=== PATIENT | male | born 1965 | race Caucasian/White ===

== ENCOUNTER 2024-08-18 10:36 | Outpatient (AMB) | payer OTHER, SELFPAY ==
--- NOTE | 2024-08-18 10:48 | A.OFFVIS_ITS ---
Intake Visit Reasons: Right knee pain Intake Note: Oleksandr is a 58 year old male who presents with complaints of progressively worsening right knee pain. The patient describes his pain as sharp and severe in nature, 08/25. His pain has gotten worse over the last few years in spite of continued non operative treatments. He has had multiple injections given into his right knee. The most recent injection gave him minimal relief. He has also taken Tylenol and anti-inflammatory medicines which gave him no relief. The patient has done physical therapy exercises which aggravated his pain. He has failed the last 3 months of conservative treatment. The patient has difficulty walking even short distances because of his pain. At this point his right knee pain is interfering with his activities of daily living and his ability to sleep well through the night. that presents today for Right knee pain/Swelling that has been going on since December. Pt states he has a history of gout in his knees. Pt denies any previous surgeries or injections in his right knee. Allergies caffeine Allergy (Intermediate, Verified 08/18/24 10:50) Headache morphine Allergy (Intermediate, Verified 08/18/24 10:50) Headache red dye Allergy (Intermediate, Verified 08/18/24 10:50) Rash karin Allergy (Intermediate, Verified 08/18/24 10:50) Rash Sulfa (Sulfonamide Antibiotics) Allergy (Intermediate, Verified 08/18/24 10:50) Rash Medication List - Last Reconciled 08/18/24 by Francisco Garza MD allopurinol 200 mg PO DAILY alprazolam mg PO amlodipine 5 mg PO BID carbamazepine ER 400 mg PO BID colchicine mg PO diclofenac sodium 75 mg PO BID fluticasone propion-salmeterol 250-50 mcg/dose (Wixela Inhub) 1 ea inhalation BID montelukast 10 mg PO QPM olmesartan 40 mg PO DAILY oxycodone-acetaminophen 10-325 mg tabs PO pravastatin 20 mg PO DAILY sennosides (senna) mg PO Physical Exam Const Other: Well-nourished well-developed very friendly male awake alert and oriented x3 in no acute distress Extrem Other: Bilateral lower extremity examination shows good capillary refill, no skin lesions noted, normal sensation light touch Right knee examination shows a mild effusion, palpable crepitus with range of motion, pain with range of motion, range of motion from -3 degrees to 115 degrees, no instability Results Reviewed Results Reviewed: X-rays of the patient's right knee show end-stage degenerative joint disease with grade 4 [id number] arthritis, subchondral sclerosis, osteophyte formati on, no acute bony abnormalities Assessment & Plan Assessment & Plan (1) Right knee pain: Code(s): M25.561 - Pain in right knee Category: Medical Plan Mr. Mckeon presents with progressively worsening right knee pain due to end- stage degenerative joint disease. I had a lengthy discussion with the patient regarding the treatment options. At this point he has failed continued non operative treatments. The risks and benefits of right total knee replacement surgery were discussed at length with the patient. The patient wishes to proceed with surgery. He will be scheduled for next available date. He will follow-up as instructed. I spent 22 minutes in reviewing the patient's records and imaging studies, seeing the patient and documenting in the medical record. Orders: Orders XR knee RT 3V Today M25.561 - Pain in right knee Referrals Rheumatology Referral M10.9 - Gout, unspecified, M25.561 - Pain in right knee Coding Level of Care Code New Pt Level 3 (11175) Complex EM visit Add On G2211 Diagnoses Right knee pain M25.561
== END 2024-08-18 11:13 | disposition home or self-care (01) ==
PROVIDERS: Visit Provider Orthopaedic Surgery
DX: M17.11 Unilateral primary osteoarthritis, right knee (principal)
CPT/HCPCS: 99203; G2211

== ENCOUNTER 2024-08-18 11:17 | Outpatient (REF) | payer OTHER, SELFPAY | END 2024-08-18 11:18 | disposition home or self-care (01) | LOC: HO.HOSX 11:17 | PROVIDERS: Visit Provider Orthopaedic Surgery | DX: M25.561 Pain in right knee (principal); M10.9 Gout, unspecified | CPT/HCPCS: 73562; 99202 ==

== ENCOUNTER 2024-08-19 13:40 | Outpatient (REF) | payer OTHER, SELFPAY ==
[2024-08-19 14:54] LABS: MANUAL DIFF FLAG NO
[2024-08-19 15:19] LABS: Basophils Absolute Auto 0.1 X10*3/uL (0.0-0.2); Basophils Percent Auto 1.2 % (0-2); Eosinophils Absolute Auto 0.4 X10*3/uL (0.0-0.4); Eosinophils Percent Auto 6.5 % (0-4); Hematocrit 37.2 % (42.0-52.0); Hemoglobin 12.7 g/dl (14.0-18.0); Imm Gran Abs Auto 0.01 X10*3/uL (0.00-0.03); Imm Gran Pct Auto 0.2 % (0.0-0.4); Lymphocytes Absolute Auto 1.9 X10*3/uL (1.2-4.9); Lymphocytes Percent Auto 28.7 % (20-40); Mean Corpuscular HGB Conc 34.1 g/dl (31.0-36.0); Mean Corpuscular Hemoglobin 31.8 pg (27.0-33.0); Mean Platelet Volume 11.4 fL (9.4-12.4); Monocytes Absolute Auto 0.5 X10*3/uL (0.1-1.2); Monocytes Percent Auto 6.8 % (2-11); Neutrophils Absolute Auto 3.8 x10*3/uL (2.0-8.3); Neutrophils Percent Auto 56.6 % (45-73); Platelet Count 175 X10*3/uL (160-400); Red Cell Distribution Width 13.5 % (11.0-16.0); White Blood Count 6.7 X10*3/uL (4.8-10.8)
[2024-08-19 16:01] LABS: Erythrocyte Sedimentation Rate 2 MM/HR (0-15)
[2024-08-19 18:01] LABS: Alanine Aminotransferase 25 U/L (0-40); Albumin Level 4.3 g/dL (3.5-5.0); Alkaline Phosphatase 81 U/L (39-117); Anion Gap 12 (12-20); Aspartate Amino Transferase 27 U/L (5-37); Bilirubin Total 0.3 mg/dL (0.0-1.0); Blood Urea Nitrogen 28 mg/dL (9-16); C Reactive Protein 0.25 mg/dL (< or = 0.50); Calcium 9.4 mg/dL (8.4-10.2); Carbon Dioxide 25 mmol/L (22-29); Chloride 106 mmol/L (96-108); Estimated Glomerular Filt Rate > 60; Glucose Random 93 mg/dL (60-115); Potassium 4.5 mmol/L (3.3-5.1); Sodium 138 mmol/L (135-145); Total Protein 6.4 g/dL (6.5-8.0)
== END 2024-08-19 13:41 | disposition home or self-care (01) ==
LOC: HO.LAB 13:40
PROVIDERS: PCP Psychiatry & Neurology Neurology; Visit Provider Student in an Organized Health Care Education/Training Program
DX: M1A.00X1 Idiopathic chronic gout, unspecified site, with tophus (tophi) (principal); Z79.899 Other long term (current) drug therapy
CPT/HCPCS: 36415; 80053; 84550; 85025; 85652; 86140; 99202

== ENCOUNTER 2024-08-19 13:40 | Outpatient (AMB) | payer OTHER, SELFPAY ==
[2024-08-19 13:44] VITALS: BP 122/74; PULSE 59; O2SAT 99; BMI 31.0
--- NOTE | 2024-08-19 13:44 | A.OFFVIS_ITS ---
Vital Signs 08/19/24 13:44 Height 5 ft 10 in Weight 216 lb BMI 31.0 BP 122/74 Blood Pressure Location Lt brachial Position Sitting Pulse 59 Pulse Source Pulse Oximeter Pulse Oximetry (%) 99 Oxygen Delivery Method Room Air Intake Visit Reasons: Gout Intake Note: Patient presents today for symptoms of gout, he is a new patient internally referred by Orthopedics. Allergies caffeine Allergy (Intermediate, Verified 08/19/24 13:46) Headache morphine Allergy (Intermediate, Verified 08/19/24 13:46) Headache red dye Allergy (Intermediate, Verified 08/19/24 13:46) Rash karin Allergy (Intermediate, Verified 08/19/24 13:46) Rash Sulfa (Sulfonamide Antibiotics) Allergy (Intermediate, Verified 08/19/24 13:46) Rash Medication List - Last Reconciled 08/19/24 by Isabel Matamoros MD allopurinol 200 mg PO DAILY alprazolam mg PO amlodipine 5 mg PO BID carbamazepine ER 400 mg PO BID colchicine mg PO diclofenac sodium 75 mg PO BID fluticasone propion-salmeterol 250-50 mcg/dose (Wixela Inhub) 1 ea inhalation BID montelukast 10 mg PO QPM olmesartan 40 mg PO DAILY oxycodone-acetaminophen 10-325 mg tabs PO pravastatin 20 mg PO DAILY sennosides (senna) mg PO HPI Comments Details: Patient is a 58-year-old gentleman former alcoholic and former cocaine user, with hypertension and history of chronic tophaceous gout here to establish care. Patient states that he recalls fluid being removed about 40 years ago at [facility] and being told there was gout crystals in the fluid (results not seen). Allopurinol 500mg Notes that since December he was started on diclofenac and colchicine by his primary because he was having multiple flares. Since starting this regimen he denies having any further flares. 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 Currently does not drink alcohol (has been sober for 20 years), trying to avoid fructose as well as red meat and shellfish. Provider notes reviewed: Francisco Garza MD. Orthopedics. 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 Denies joint swelling, muscle weakness, bone pain All other systems reviewed and are unremarkable except noted above Physical Exam Vital Signs: Last Vital Signs Pulse 59 08/19/24 13:44 BP 122/74 08/19/24 13:44 Pulse Ox 99 08/19/24 13:44 Oxygen Delivery Method Room Air 08/19/24 13:44 BMI result Body Mass Index 31.0 Const Other: Physical Examination Patient well appearing and in no apparent painful distress Able to rise from chair without support. ?Gait normal. Constitutional: ?Mucous membranes pink and moist patient alert and cooperative HEENT: ?Conjunctiva and sclera clear. ?Pupils equal round and reactive to light. ?No lymphadenopathy. ?Normal dentition. Resp: ?Normal respiratory effort and able to speak in complete sentences. ?Clear to auscultation bilaterally. ?No crackles, rales, rhonchi, wheezes heard. Cards: ?Regular rate and rhythm. ?S1 and S2 heard no murmurs. ?Radial pulses intact bilaterally MSK: ?No deformity, swelling, abnormalities noted to bilateral hands. ?No evidence of synovitis. ?Able to move all joints with full range of motion, without limitation. Bilateral crepitus on knees. Skin: No tophi noted to the ears. Tophi noted to the right 3rd and 4th PIP. No tophi noted to the elbows. Healed surgical scar seen on the left elbow. Results Reviewed Results Reviewed: Right knee x-ray reviewed 08/18/2024 ordered by Francisco Garza. Patient with Sam lgren and Stephen grade 4 osteoarthritis with bone on bone-almost obliterated joint space, large osteophytes and subchondral sclerosis (my read) Assessment & Plan Assessment & Plan (1) Chronic gouty arthropathy with tophi: Code(s): M1A.00X1 - Idiopathic chronic gout, unspecified site, with tophus (tophi) Plan: #Chronic Tophaceous Gout Patient with chronic tophaceous gout that was previously having an increase in flares but this has resolved since starting diclofenac and colchicine. We will need to check his uric acid as well as his kidney function today. Advised to stop the dog diclofenac and continue the colchicine. He is also to continue his allopurinol 500 mg. We will review his labs and adjust the allopurinol for a goal uric acid of less than 5. (2) On allopurinol therapy: Code(s): Z79.899 - Other intermediate (current) drug therapy Category: Medical Plan: #Long-term Current Use of Allopurinol Risks and benefits of allopurinol discussed with patient Benefits include decreased gout flares, remission of gout and reduction of tophi Risks include allopurinol hypersensitivity syndrome which is a severe cutaneous adverse reaction associated with allopurinol use particularly in patients who are HLA [id number] positive, increased transaminases, GI upset including diarrhea, nausea and vomiting, and other dermatologic manifestations. (3) On colchicine therapy: Code(s): Z79.899 - Other intermediate (current) drug therapy Category: Medical Plan: #Long-term use of colchicine Risks and benefits of long-term colchicine for the management of this patient's gout discussed with patient. Benefits include reduced occurrence of flares while we titrate and regulate his uric acid on allopurinol and other uric acid lowering medications. Risks include worsening myalgias especially if on statins and GI upset including diarrhea Plan I spent 45 minutes reviewing the record and labs, seeing the patient, discussing the treatment plan and documenting in the medical record Orders: Orders Comprehensive Met. Panel Today M10.9 - Gout, unspecified, M1A.00X1 - Idiopathic chronic gout, unspecified site, with tophus (tophi) C Reactive Protein Today M10.9 - Gout, unspecified, M1A.00X1 - Idiopathic chronic gout, unspecified site, with tophus (tophi) Uric Acid Today M10.9 - Gout, unspecified, M1A.00X1 - Idiopathic chronic gout, unspecified site, with tophus (tophi) Erythrocyte Sedimentation Rate Today M10.9 - Gout, unspecified, M1A.00X1 - Idiopathic chronic gout, unspecified site, with tophus (tophi) Complete Blood Count Auto Diff Today M10.9 - Gout, unspecified, M1A.00X1 - Idiopathic chronic gout, unspecified site, with tophus (tophi) Coding Level of Care Code New Pt Level 4 (21579) Diagnoses Chronic gouty arthropathy with tophi M1A.00X1 On allopurinol therapy Z79.899 On colchicine therapy Z79.899
== END 2024-08-19 14:30 | disposition home or self-care (01) ==
LOC: HO.RHE 13:40
PROVIDERS: PCP Psychiatry & Neurology Neurology; Visit Provider Student in an Organized Health Care Education/Training Program
DX: M1A.00X1 Idiopathic chronic gout, unspecified site, with tophus (tophi) (principal); Z79.899 Other long term (current) drug therapy
CPT/HCPCS: 99204

== ENCOUNTER 2024-08-30 13:30 | Outpatient (AMB) | payer OTHER, SELFPAY ==
[2024-08-30 13:34] VITALS: BP 124/80; PULSE 61; O2SAT 99; BMI 31.0
--- NOTE | 2024-08-30 13:34 | A.OFFVIS_ITS ---
Vital Signs 08/30/24 13:34 Height 5 ft 10 in Weight 216 lb BMI 31.0 BP 124/80 Blood Pressure Location Lt brachial Position Sitting Pulse 61 Pulse Source Pulse Oximeter Pulse Oximetry (%) 99 Oxygen Delivery Method Room Air Intake Visit Reasons: F/u lab results. Gout Intake Note: Patient is here for follow up on gout, and states colchicine is ripping his gut up. Allergies caffeine Allergy (Intermediate, Verified 08/30/24 13:37) Headache morphine Allergy (Intermediate, Verified 08/30/24 13:37) Headache red dye Allergy (Intermediate, Verified 08/30/24 13:37) Rash karin Allergy (Intermediate, Verified 08/30/24 13:37) Rash Sulfa (Sulfonamide Antibiotics) Allergy (Intermediate, Verified 08/30/24 13:37) Rash HPI Comments Details: Patient is a 58-year-old gentleman former alcoholic and former cocaine user, with hypertension and history of chronic tophaceous gout presents for follow-up Interval History: Last seen 08/19/2024 with mi. At that time patient was stable had no further since December of this year after starting allopurinol. At that visit diclofenac was discontinued and he was to remain on colchicine and allopurinol. Patient states that 4 days ago he had to stop the colchicine because he was having gastric irritation. Has not had any issues with gout since stopping the colchicine. Able to tolerate his allopurinol. Rheumatologic History: Patient with a longstanding history of crystal proven (results not seen) chronic tophaceous gout who presented to [facility] 08/19/2024. 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 Currently does not drink alcohol (has been sober for 20 years), trying to avoid fructose as well as red meat and shellfish. Current Rheumatology Medication(s): Allopurinol 500mg daily Colchicine 0.6mg daily (self discontinued due to GI upset) [facility] Medical History (Updated 08/30/24 @ 13:57 by Isabel Matamoros MD) Knee osteoarthritis On colchicine therapy On allopurinol therapy Review of Systems Const Details: Review of Systems Constitutional: Denies fever, chills, weight loss ENT: Denies vision changes, eye pain or eye redness, dental caries, dry mouth GI: Denies nausea, vomiting, diarrhea, abdominal pain, change in BM Pulm: Denies SOB, ARROYO, hemoptysis, wheezing Cards: Denies chest pain, palpitations Skin: Denies Raynaud's, rash, nail changes, photosensitivity, 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 ?Gait normal. Constitutional: ?Mucous membranes pink and moist patient alert and cooperative HEENT: ?Conjunctiva and sclera clear. ?Pupils equal round and reactive to light. ?No lymphadenopathy. ?Normal dentition. Resp: ?Normal respiratory effort and able to speak in complete sentences. ?Clear to auscultation bilaterally. ?No crackles, rales, rhonchi, wheezes heard. Cards: ?Regular rate and rhythm. ?S1 and S2 heard no murmurs. ?Radial pulses intact bilaterally MSK: ?No deformity, swelling, abnormalities noted to bilateral hands. ?No evidence of synovitis. ?Able to move all joints with full range of motion, without limitation. Bilateral crepitus on knees. Right knee with mild effusion. No warmth or tenderness to palpation. Skin: No tophi noted to the ears. No tophi noted to the elbows. Healed surgical scar seen on the left elbow. Prominent PIPs of the 3rd and 4th digits on the right. ?old injury versus tophi. Results Reviewed Results Reviewed: Laboratory Tests 08/19/24 14:53 WBC 6.7 RBC 4.00 L Hgb 12.7 L Hct 37.2 L Plt Count 175 ESR 2 Sodium 138 Potassium 4.5 Chloride 106 Carbon Dioxide 25 BUN 28 H Creatinine 1.18 Uric Acid 4.0 Calcium 9.4 Total Bilirubin 0.3 AST 27 ALT 25 C-Reactive Protein 0.25 Total Protein 6.4 L Assessment & Plan Assessment & Plan (1) Gout: Code(s): M10.9 - Gout, unspecified Category: Medical Qualifiers: Gout site: multiple sites Gout etiology: idiopathic Chronicity: chronic Presence of tophus: with tophus Qualified Code(s): M1A.09X1 - Idiopathic chronic gout, multiple sites, with tophus (tophi) Plan: # Chronic crystal proven tophaceous gout Given his history of tophi goal uric acid is 5. Last uric acid done 08/19/2024 has uric acid at goal of 4. Patient had to stop colchicine due to GI upset. Ideally I would like to see him remain on the colchicine for at least another 3 months while we ensure that his uric acid is indeed stable. However given his side effects will stop the colchicine daily and send a rescue pack of colchicine if he does have a breakthrough flare during this time. Continue allopurinol 500 mg. We will see again in 4 months. (2) Knee osteoarthritis: Code(s): M17.9 - Osteoarthritis of knee, unspecified Category: Medical Qualifiers: Osteoarthritis type: primary Laterality: bilateral Qualified Code(s): M17.0 - Bilateral primary osteoarthritis of knee Plan: #Bilateral Knee OA Patient with mild effusion to the right knee today. Given that it is without warmth or tenderness to palpation this is likely secondary to his underlying osteoarthritis which is pretty severe with a Kellgren Stephen grade 4 based on the x-rays done 08/18/24. Continue follow up with Orthopedics for surgical intervention. Topical ice and elevation in the meantime. (3) On allopurinol therapy: Code(s): Z79.899 - Other manager intermediate (current) drug therapy Category: Medical Plan: #Long-term Current Use of Allopurinol Risks and benefits of allopurinol discussed with patient Benefits include decreased gout flares, remission of gout and reduction of tophi Risks include allopurinol hypersensitivity syndrome which is a severe cutaneous adverse reaction associated with allopurinol use particularly in patients who are HLA [id number]*5801 positive, increased transaminases, GI upset including diarrhea, nausea and vomiting, and other dermatologic manifestations. Plan I spent 20 minutes reviewing the record and labs, seeing the patient, discussing the treatment plan and documenting in the medical record Orders: Orders Uric Acid 4 Months M1A.09X1 - Idiopathic chronic gout, multiple sites, with tophus (tophi), Z79.899 - Other manager intermediate (current) drug therapy Comprehensive Met. Panel 4 Months M1A.09X1 - Idiopathic chronic gout, multiple sites, with tophus (tophi), Z79.899 - Other manager intermediate (current) drug therapy Complete Blood Count Auto Diff 4 Months M1A.09X1 - Idiopathic chronic gout, multiple sites, with tophus (tophi), Z79.899 - Other detention (current) drug therapy Erythrocyte Sedimentation Rate 4 Months M1A.09X1 - Idiopathic chronic gout, multiple sites, with tophus (tophi), Z79.899 - Other detention (current) drug therapy C Reactive Protein 4 Months M1A.09X1 - Idiopathic chronic gout, multiple sites, with tophus (tophi), Z79.899 - Other manager intermediate (current) drug therapy Coding Level of Care Code Est Pt Level 3 (93971) Diagnoses Idiopathic chronic gout of multiple sites with tophus M1A.09X1 Gout site: multiple sites Gout etiology: idiopathic Chronicity: chronic Presence of tophus: with tophus Primary osteoarthritis of both knees M17.0 Osteoarthritis type: primary Laterality: bilateral On allopurinol therapy Z79.899
== END 2024-08-30 13:59 | disposition home or self-care (01) ==
PROVIDERS: PCP Psychiatry & Neurology Neurology; Visit Provider Student in an Organized Health Care Education/Training Program
DX: M1A.09X1 Idiopathic chronic gout, multiple sites, with tophus (tophi) (principal); M17.0 Bilateral primary osteoarthritis of knee; Z79.899 Other long term (current) drug therapy
CPT/HCPCS: 99213

== ENCOUNTER → 2024-08-30 13:30 | Outpatient (BNVA) | payer OTHER, SELFPAY | PROVIDERS: PCP Psychiatry & Neurology Neurology; Visit Provider Student in an Organized Health Care Education/Training Program | DX: M1A.09X1 Idiopathic chronic gout, multiple sites, with tophus (tophi) (principal); M17.0 Bilateral primary osteoarthritis of knee; Z79.899 Other long term (current) drug therapy | CPT/HCPCS: 99212 ==

== ENCOUNTER 2024-10-20 09:18 | Outpatient (REF) | payer OTHER, SELFPAY | END 2024-10-20 09:19 | disposition home or self-care (01) | LOC: HO.XRAY 09:18 | PROVIDERS: PCP Psychiatry & Neurology Neurology; Visit Provider Student in an Organized Health Care Education/Training Program | DX: Z01.818 Encounter for other preprocedural examination (principal); M1A.09X1 Idiopathic chronic gout, multiple sites, with tophus (tophi); M17.0 Bilateral primary osteoarthritis of knee; Z79.899 Other long term (current) drug therapy; M54.2 Cervicalgia | CPT/HCPCS: 72052; 99212 ==

== ENCOUNTER 2024-10-20 09:18 | Outpatient (AMB) | payer OTHER, SELFPAY ==
--- NOTE | 2024-10-20 09:20 | A.OFFVIS_ITS ---
Vital Signs 10/20/24 09:28 Height 5 ft 10 in Weight 217 lb 13.067 oz BMI 31.3 BP 115/60 Blood Pressure Location Lt brachial Position Sitting Respiration 18 Pulse 62 Pulse Source Pulse Oximeter Pulse Oximetry (%) 98 Oxygen Delivery Method Room Air Intake Visit Reasons: RA/Clearance Intake Note: Patient presents for RA. Allergies caffeine Allergy (Intermediate, Verified 10/20/24 09:24) Headache morphine Allergy (Intermediate, Verified 10/20/24 09:24) Headache red dye Allergy (Intermediate, Verified 10/20/24 09:24) Rash karin Allergy (Intermediate, Verified 10/20/24 09:24) Rash Sulfa (Sulfonamide Antibiotics) Allergy (Intermediate, Verified 10/20/24 09:24) Rash Medication List - Last Reconciled 10/20/24 by Isabel Matamoros MD allopurinol 200 mg PO DAILY alprazolam mg PO amlodipine 5 mg PO BID carbamazepine ER 400 mg PO BID colchicine mg PO diclofenac sodium 75 mg PO BID fluticasone propion-salmeterol 250-50 mcg/dose (Wixela Inhub) 1 ea inhalation BID montelukast 10 mg PO QPM olmesartan 40 mg PO DAILY oxycodone-acetaminophen 10-325 mg tabs PO pravastatin 20 mg PO DAILY sennosides (senna) mg PO HPI Comments Details: Patient is a 58-year-old gentleman former alcoholic and former cocaine user, with hypertension and history of chronic tophaceous gout presents for follow-up for preop clearance for his Right Total Knee Replacement Interval History: Last seen 08/30/2024 with me. At that time patient was stable. Had stopped colchicine without any flare of his gout. No changes to his medication made at that time Today, Patient is doing well No further gout flares since last visit Still having abdominal pain with exertion to his RLQ. Has been evaluated in the ED several times. CT Abd with no pathology. Surgery: Right total knee replacement Surgeon: Dr. David Kuo Date of Surgery: 11/11/2024 Rheumatologic History: Patient with a longstanding history of crystal proven (results not seen) chronic tophaceous gout who presented to [facility] care 08/19/2024. 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 Currently does not drink alcohol (has been sober for 20 years), trying to avoid fructose as well as red meat and shellfish. Current Rheumatology Medication(s): Allopurinol 500mg daily [facility] Medical History (Updated 10/20/24 @ 10:10 by Isabel Matamoros MD) Knee osteoarthritis On allopurinol therapy Family History (Updated 10/20/24 @ 09:25 by GAIL [place]) Father Parkinsons Social History (Updated 10/20/24 @ 09:27 by GAIL [place]) Household Members: None Housing: Apartment Alcohol intake: former Patient Tobacco Use Status: Former Tobacco user Cigarette Packs Per Day: 2 Years Smoked: 36 Substance Use Type: Marijuana Review of Systems Const Details: Review of Systems Constitutional: Denies fever, chills, weight loss ENT: Denies vision changes, eye pain or eye redness, dental caries, dry mouth GI: Denies nausea, vomiting, diarrhea, abdominal pain, change in BM Pulm: Denies SOB, ARROYO, hemoptysis, wheezing Cards: Denies chest pain, palpitations Skin: Denies Raynaud's, rash, nail changes, photosensitivity, SHREDDER PICKER: Denies headaches, weakness, paresthesias, recurrent falls MSK: as per HPI All other systems reviewed and are unremarkable except noted above Physical Exam Vital Signs: Last Vital Signs Pulse 62 10/20/24 09:28 Resp 18 10/20/24 09:28 BP 115/60 10/20/24 09:28 Pulse Ox 98 10/20/24 09:28 Oxygen Delivery Method Room Air 10/20/24 09:28 BMI result Body Mass Index 31.3 Physical Examination Patient well appearing and in no apparent painful distress Able to rise from chair without support. ?Gait normal. Constitutional: ?Mucous membranes pink and moist patient alert and cooperative HEENT: ?Conjunctiva and sclera clear. ?Pupils equal round and reactive to light. ?No lymphadenopathy. Resp: ?Normal respiratory effort and able to speak in complete sentences. ?Clear to auscultation bilaterally. ?No crackles, rales, rhonchi, wheezes heard. Cards: ?Regular rate and rhythm. ?S1 and S2 heard no murmurs. ?Radial pulses intact bilaterally MSK: ?No deformity, swelling, abnormalities noted to bilateral hands. ?No evidence of synovitis. ?Able to move all joints with full range of motion, without limitation. Bilateral crepitus on knees. No effusion. No warmth or tenderness to palpation. Skin: No tophi noted to the ears. No tophi noted to the elbows. Healed surgical scar seen on the left elbow. Prominent PIPs of the 3rd and 4th digits on the right. Results Reviewed Results Reviewed: Laboratory Tests 08/19/24 14:53 WBC 6.7 RBC 4.00 L Hgb 12.7 L Hct 37.2 L Plt Count 175 ESR 2 Sodium 138 Potassium 4.5 Chloride 106 Carbon Dioxide 25 BUN 28 H Creatinine 1.18 Estimated GFR > 60 Uric Acid 4.0 AST 27 ALT 25 C-Reactive Protein 0.25 Assessment & Plan Assessment & Plan (1) Gout: Code(s): M10.9 - Gout, unspecified Category: Medical Qualifiers: Chronicity: chronic Gout etiology: idiopathic Gout site: multiple sites Presence of tophus: with tophus Qualified Code(s): M1A.09X1 - Idiopathic chronic gout, multiple sites, with tophus (tophi) Plan: # Chronic crystal proven tophaceous gout Goal UA < 5 given his history of tophi Last uric acid done 08/19/2024 has uric acid at goal of 4. Continue allopurinol 500mg daily (2) Knee osteoarthritis: Code(s): M17.9 - Osteoarthritis of knee, unspecified Category: Medical Qualifiers: Osteoarthritis type: primary Laterality: bilateral Qualified Code(s): M17.0 - Bilateral primary osteoarthritis of knee Plan: #Bilateral Knee OA Awaiting TKR Plan is for right knee first then left knee Otherwise stable (3) Pre-op evaluation: Code(s): Z01.818 - Encounter for other preprocedural examination Plan: #Pre-op evaluation: Right TKR Patient scheduled for Right TKR 11/11/24 for Kellgren Stephen grade 4 OA with chronic pain not responsive to other conservative measures Patient has a history of chronic gouty arthritis affecting multiple joints. He has been without a flare of his gout for the past year and his UA is at goal <5. No contraindications to proceed with surgery Patient is to continue allopurinol in the preoperative period. There is increased risk of gout flare in the yo operative, especially in the post operative period. If there is a flare, a short course of prednisone can be given, but prolonged doses of prednisone can lead to delayed wound healing. (4) On allopurinol therapy: Code(s): Z79.899 - Other termite treater helper (current) drug therapy Category: Medical Plan: #Long-term Current Use of Allopurinol Risks and benefits of allopurinol discussed with patient Benefits include decreased gout flares, remission of gout and reduction of tophi Risks include allopurinol hypersensitivity syndrome which is a severe cutaneous adverse reaction associated with allopurinol use particularly in patients who are HLA B*5801 positive, increased transaminases, GI upset including diarrhea, nausea and vomiting, and other dermatologic manifestations. Plan I spent 30 minutes reviewing the record and labs, seeing the patient, discussing the treatment plan and documenting in the medical record Orders: Orders XR cervical spine w flex/ext Today M1A.09X1 - Idiopathic chronic gout, multiple sites, with tophus (tophi), M54.2 - Cervicalgia Medications: Changed From allopurinol 200 mg PO DAILY M1A.09X1 - Idiopathic chronic gout, multiple sites, with tophus (tophi), Z79.899 - Other termite treater helper (current) drug therapy To allopurinol 500 mg (5 x 100 mg) PO DAILY 90 days 450 tabs 2RF M1A.09X1 - Idiopathic chronic gout, multiple sites, with tophus (tophi), Z79.899 - Other residential (current) drug therapy Coding Level of Care Code Est Pt Level 4 (47953) Diagnoses Idiopathic chronic gout of multiple sites with tophus M1A.09X1 Chronicity: chronic Gout etiology: idiopathic Gout site: multiple sites Presence of tophus: with tophus Primary osteoarthritis of both knees M17.0 Osteoarthritis type: primary Laterality: bilateral Pre-op evaluation Z01.818 On allopurinol therapy Z79.899
[2024-10-20 09:28] VITALS: BP 115/60; PULSE 62; RESP 18; O2SAT 98; BMI 31.3
--- OUTSIDE RECORDS SUMMARY | 2024-10-26 00:50 | XMS_ITS ---
Author Name [facility] Organization Unknown Results Test Name/Text Value Interpretation Date Range Source CREAT SERPL MCNC 0.8mg/dL Normal 0.7 - 1.3 [facility] CALCIUM SERPL MCNC 8.8mg/dL Normal 8.4 - 10 .2 [facility] SODIUM SERPL SCNC 130mmol/L Below low normal 13 5 - 145 [facility] ANION GAP SERPL SCNC 8mmol/L Normal 5 - 14 [facility] Glomerular filtration rate/1.73 sq M. predicted 102 Normal 60 - [facility] HCO3 SER SCNC 26mmol/L Normal 24 - 32 [facility] GLUCOSE SERPL MCNC 94mg/dL Normal 70 - 199 [facility] BUN SERPL [facility] 17mg/dL Normal 9 - 20 [facility] CHLORIDE SERPL SCNC 96mmol/L Below low normal 98 - 107 [facility] POTASSIUM SERPL SCNC 4mmol/L Normal 3.5 - 5.1 [facility] PLATELET NO. BLD AUTO 192K/uL Normal 150 - 450 [facility] RBC NO. BLD AUTO 4.1M/uL Below low normal 4.7 - 6 [facility] NUCLEATED RBC 0% Normal 0 - 1 [facility] LYMPHOCYTES NO. BLD AUTO 2.3K/uL Normal [id number] 1 - 3.2 [facility] EOSINOPHIL NO. BLD AUTO 0.3K/uL Normal 0 - 0.5 [facility] MCH RBC QN AUTO 31.5pg Normal 25 - 33 [facility] MCHC RBC AUTO MCNC 34.3g/dL Normal 32 - 36 [facility] MONOCYTES NFR BLD AUTO 7% Normal 2 - 12 [facility] IMMATURE GRANULOCYTE, ABSOLUTE 0.02k/uL Normal - 0.1 [facility] LYMPHOCYTES NFR BLD AUTO 35.9% Normal 20 - 48 [facility] EOSINOPHIL NFR BLD AUTO 4.6% Normal 0 - 6 [facility] HGB BLD [facility]NC 12.9g/dL Below low normal 13.5 - 18 [facility] NEUTROPHILS NO. BLD AUTO 3.2K/uL Normal 1.8 - 7.8 [facility] WBC NO. BLD AUTO 6.3K/uL Normal 4 - 10.5 [facility] BASOPHILS NFR BLD AUTO 0.6% Normal 0 - 2 [facility] MONOCYTES NO. BLD AUTO 0.4K/uL Normal 0 - 0.8 [facility] MCV RBC AUTO 91.7fL Normal 78 - 100 [facility] NEUTROP[facility] NFR BLD AUTO 51.6% Normal 44 - 74 [facility] IMMATURE GRANULOCYTE, PERCENT 0.3% Normal 0 - 1 [facility] BASOPHILS IN BLOOD BY AUTOMATED COUNT 0K/uL Normal 0 - 0.2 [facility] PMV BLD AUTO 10.4fL Normal 7.4 - 11.4 [facility] RDW RBC AUTO RTO 13.1% Normal 12.1 - 17. 7 [facility] HCT VFR BLD AUTO 37.6% Below low normal 40 - 54 [facility] Clarity Ur Refract.auto CLEAR Normal [id number] [facility] Prot Ur Ql Strip.auto TRACE Abnormal - [facility] Glucose Ur Ql Strip.auto NEGATIVE Normal - [facility] Nitrite Ur Ql Strip.auto NEGATIVE Normal - [facility] Hgb Ur Ql Strip.auto NEGATIVE Normal - [facility] Ketones Ur Ql Strip.auto NEGATIVE Normal - [facility] Leukocyte esterase Ur Ql Strip.auto NEGATIVE Normal - [facility] Sp Gr Ur Strip.auto 1.015 Normal 1.005 - 1.03 [facility] pH Ur Strip.auto 7.5 Normal 4.5 - 8 [facility] SPECIMEN SOURCE XXX URINE CLEAN CATCH Normal [facility] BABESIA MICROTI IGM AB <1:20 Normal [facility] BABESIA MICROTI IGG AB <1:64 Normal [facility] ANAPLASMA PHAG IGM <1:20 Normal [facility] E. CHAFFEENSIS IGM <1:20 Normal [facility] ANAPLASMA PHAG IGG <1:64 Normal [facility] E. CHAFFEENSIS IGG <1:64 Normal [facility] B burgdor IgM Ser Ql IA NEGATIVE Normal - [facility] TSH SerPl DL<=0.005 mIU/L-aCnc 1.7uIU/mL Normal 0.45 - 5.33 [facility] Clarity Ur Refract.auto CLEAR Normal [facility] Prot Ur Ql Strip.auto TRACE Abnormal - [facility] Glucose Ur Ql Strip.auto NEGATIVE Normal - [facility] Nitrite Ur Ql Strip.auto NEGATIVE Normal - [facility] Hgb Ur Ql Strip.auto NEGATIVE Normal - [facility] Ketones Ur Ql Strip.auto NEGATIVE Normal - [facility] Leukocyte esterase Ur Ql Strip.auto NEGATIVE Normal - [facility] Sp Gr Ur Strip.auto 1.015 Normal 1.005 - 1.03 [facility] pH Ur Strip.auto 8 Normal 4.5 - 8 [facility] BILIRUB SERPL MCNC 0.4mg/dL Normal 0.3 - 1 [facility] BILIRUB DIRECT SERPL [facility] 0.1mg/dL Normal 0 - 0.2 [facility] LIPASE SERPL CCNC 26U/L Normal [id number] 11 - 82 [facility] CREAT SERPL [facility] 0.8mg/dL Normal 0.7 - 1.3 [facility] CALCIUM SERPL MCNC 9mg/dL Normal [id number] 8.4 - 10 .2 [facility] SODIUM SERPL SCNC 131mmol/L Below low normal [id number] 13 5 - 145 [facility] ANION GAP SERPL SCNC 6mmol/L Normal [id number] 5 - 14 [facility] Glomerular filtration rate/1.73 sq M. predicted 102 Normal [id number] 60 - [facility] HCO3 SER SCNC 28mmol/L Normal [id number] 24 - 32 [facility] GLUCOSE SERPL MCNC 98mg/dL Normal [id number] 70 - 199 [facility] BUN SERPL MCNC 17mg/dL Normal [id number] 9 - 20 [facility] CHLORIDE SERPL SCNC 97mmol/L Below low normal [id number] 98 - 107 [facility] POTASSIUM SERPL SCNC 4.5mmol/L Normal [id number] 3.5 - 5.1 [facility] AMYLASE SERPL [facility] 54U/L Normal [id number] 29 - 103 [facility] LDH SERPL L TO P CCNC 148U/L Normal [id number] 125 - 220 [facility] AST SERPL [facility] 26U/L Normal [id number] 5 - 40 [facility] ALP SERPL-CCNC 93U/L Normal [id number] 34 - 104 [facility] ALT SERPL [facility] 25U/L Normal [id number] 7 - 52 [facility] PLATELET NO. BLD AUTO 189K/uL Normal [id number] 150 - 450 [facility] RBC NO. BLD AUTO 4.08M/uL Below low normal [id number] 4.7 - 6 [facility] NUCLEATED RBC 0% Normal [id number] 0 - 1 [facility] LYMPHOCYTES NO. BLD AUTO 1.3K/uL Normal [id number] 1 - 3.2 [facility] EOSINOPHIL NO. BLD AUTO 0.3K/uL Normal [id number] 0 - 0.5 [facility] MCH RBC QN AUTO 31.9pg Normal [id number] 25 - 33 [facility] MCHC RBC AUTO MCNC 34.9g/dL Normal [id number] 32 - 36 [facility] MONOCYTES NFR BLD AUTO 7.3% Normal [id number] 2 - 12 [facility] IMMATURE GRANULOCYTE, ABSOLUTE 0.02k/uL Normal [id number] - 0.1 [facility] LYMPHOCYTES NFR BLD AUTO 21.8% Normal [id number] 20 - 48 [facility] EOSINOPHIL NFR BLD AUTO 5.6% Normal [id number] 0 - 6 [facility] HGB BLD MCNC 13g/dL Below low normal [id number] 13.5 - 18 [facility] NEUTROPHILS NO. BLD AUTO 3.8K/uL Normal [id number] 1.8 - 7.8 [facility] WBC NO. BLD AUTO 5.9K/uL Normal [id number] 4 - 10.5 [facility] BASOPHILS NFR BLD AUTO 0.7% Normal [id number] 0 - 2 [facility] MONOCYTES NO. BLD AUTO 0.4K/uL Normal [id number] 0 - 0.8 [facility] MCV RBC AUTO 91.2fL Normal [id number] 78 - 100 [facility] NEUTROPHILS NFR BLD AUTO 64.3% Normal [id number] 44 - 74 [facility] IMMATURE GRANULOCYTE, PERCENT 0.3% Normal [id number] 0 - 1 [facility] BASOPHILS IN BLOOD BY AUTOMATED COUNT 0K/uL Normal [id number] 0 - 0.2 [facility] PMV BLD AUTO 11.5fL Above high normal [id number] 7.4 - 11.4 [facility] RDW RBC AUTO RTO 13.2% Normal [id number] 12.1 - 17. 7 [facility] HCT VFR BLD AUTO 37.2% Below low normal [id number] 40 - 54 [facility] SPECIMEN SOURCE XXX URINE CLEAN CATCH Normal [id number] [facility]
== END 2024-10-20 09:49 | disposition home or self-care (01) ==
LOC: HO.RHE 09:18
PROVIDERS: PCP Psychiatry & Neurology Neurology; Visit Provider Student in an Organized Health Care Education/Training Program
DX: M1A.09X1 Idiopathic chronic gout, multiple sites, with tophus (tophi) (principal); M17.0 Bilateral primary osteoarthritis of knee; Z01.818 Encounter for other preprocedural examination; Z79.899 Other long term (current) drug therapy
CPT/HCPCS: 99214

== ENCOUNTER 2024-12-13 11:14 | Outpatient (REF) | payer OTHER, SELFPAY ==
[2024-12-13 12:07] LABS: MANUAL DIFF FLAG NO
[2024-12-13 12:32] LABS: Basophils Absolute Auto 0.1 X10*3/uL (0.0-0.2); Basophils Percent Auto 0.7 % (0-2); Eosinophils Absolute Auto 0.6 X10*3/uL (0.0-0.4); Hematocrit 35.8 % (42.0-52.0); Hemoglobin 11.6 g/dl (14.0-18.0); Imm Gran Abs Auto 0.04 X10*3/uL (0.00-0.03); Imm Gran Pct Auto 0.6 % (0.0-0.4); Lymphocytes Absolute Auto 1.3 X10*3/uL (1.2-4.9); Lymphocytes Percent Auto 19.3 % (20-40); Mean Corpuscular HGB Conc 32.4 g/dl (31.0-36.0); Mean Corpuscular Hemoglobin 30.8 pg (27.0-33.0); Mean Platelet Volume 11.6 fL (9.4-12.4); Monocytes Absolute Auto 0.6 X10*3/uL (0.1-1.2); Monocytes Percent Auto 7.9 % (2-11); Neutrophils Absolute Auto 4.4 x10*3/uL (2.0-8.3); Neutrophils Percent Auto 63.5 % (45-73); Platelet Count 173 X10*3/uL (160-400); Red Blood Count 3.77 X10*6/uL (4.60-5.80); Red Cell Distribution Width 14.1 % (11.0-16.0)
--- OUTSIDE RECORDS SUMMARY | 2024-12-13 12:58 | XMS_ITS | Data Portability ---
Author Organization [facility], [facility] Address [address] [place] [address] Care Team Providers Care Acid Treater Name Role Phone CHE NICHO Primary Care Provider Assessment Encounter [...] present. P:Continue with POC, progress as tolerated. Not available 11/23/2024 17:46:31 11/28/2024 11/28/2024 A: Pt able to improve with more LE arom exercise to help improve balance and stability. Pt had minimal increase with passive bending. Pt is very stiff in both planes. P: Continue with POC, progress as tolerated. [email or web address] Not available 11/28/2024 14:25:34 12/01/2024 12/01/2024 A: Pt cont work on regaining rom and strength with arom exercises. Pt still have mod pain with passive stretching. Pt encourage to take a few days off to allow muscle soreness to subside. P: Continue with POC, progress as tolerated. Not available 12/01/2024 13:29:44 12/08/2024 12/08/2024 A: Pt presents with increased active and passive knee flexion and extension. Pt was able to ride the stationary bicycle without difficulty. Pt is walking w/o an AD and presents with a limp. Pt advised to use a cane until he can walk w/o limping. P: Continue with POC, progress as tolerated. [email or web address] Not available 12/08/2024 16:46:09 Plan of Treatment Reminders Order Date Submit Date Provider Last Modified By Organization Details Last Modified Time Details Appointments PT FOLLOW-UP 2024 01:00P M Zaina Stephens, AIRCRAFT MAINTENANCE DIRECTOR Not available Not available Not available RECHECK 15 2024 02:30P M David Reina MD Not available Not available Not available PT FOLLOW-UP 2024 01:30P M Zaina Stephens, AIRCRAFT MAINTENANCE DIRECTOR Not available Not available Not available PT FOLLOW-UP 2024 12:00P M Josy Arce DPT Not available Not available Not available PT FOLLOW-UP 2024 12:00P M Josy Arce DPT Not available Not available Not available Lab None recorded. Referral None recorded. Procedures None recorded. Surgeries None recorded. Imaging XR, knee, 3 view - room 201 1 p/o rtkr ([place]) 2024 025 [email or web address] [facility], [address] [facility] [address], [place], [address], 12/08/2024 08:33:27 Medication Orders oxycodone [address] [id number], [address], [place], [place], [id number], 11/25/2024 10:16:05 Patient TargetsNo targets recorded. Patient InstructionsNo instructions recorded. Reason for Referral None Reported. Results Created Date Observation Date Name Description Value Unit Range Abnormal Flag Note LastModifiedBy Organization Detail LastModifiedTime 11/25/19 25 11/25/2024 XR, knee, 3 view http:/ [email or web address] ?Encry pted=s hAaTro YD8dLq bEUv6g %2BXZw aYqtaq 0bqfl% 2Fg9IQ a4ajBk vP9nXo QUaueC m3YtLR FvZlgJ JJ8mAn HZtai3 8r0566 AC0Kqb 3%2BAU 6GhKiQ trMwF INTERFACE [facility] [address], [place], [address], 11/25/2024 09:57:02 11/25/19 25 11/25/2024 XR, knee, 3 view [email or web address]:/ [email or web address] ?Encry pted=s hAaTro YD8dLq bEUv6g %2BXZw aYqtaq 0bqfl% 2Fg9IQ a4ajBk vP9nXo QUaueC m3YtLR FvZlgJ JJ8mAn HZtai3 4g5238 AC0Kqb 3%2BAU 6GhKiQ trMwF INTERFACE [facility] [address], [place], [address], 11/25/2024 09:57:05 Result Notes None recorded. 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 Procedures Surgical History Date Name Laterality Status Provider Name and Address Organization Details Recorded Time 5 77696 Therapeutic Exercise (1:1) completed Zara Casas, AIRCRAFT MAINTENANCE DIRECTOR [address], [place], [address], [facility] 12/08/2024 16:43:56 5 11264: Hot or Cold Pack completed Zara Casas, AIRCRAFT MAINTENANCE DIRECTOR [address], [place], [address], [facility] 12/08/2024 16:43:52 5 81033: Manual therapy completed Zara Casas, AIRCRAFT MAINTENANCE DIRECTOR [address], [place], [address], [facility] 12/08/2024 16:44:00 5 36328 Therapeutic Exercise (1:1) completed Branden Sorto PTA [address], [place], [address], [facility] 11/30/2024 12:03:45 5 54348: Hot or Cold Pack completed Branden Sorto PTA [address], [place], [address], [facility] 12/01/2024 13:24:41 5 10263: Manual therapy completed Branden Sorto PTA [address], [place], [address], [facility] 11/30/2024 12:03:45 5 54469 Therapeutic Exercise (1:1) completed Branden Sorto AIRCRAFT MAINTENANCE DIRECTOR [address], [place], [address], [facility] 11/28/2024 14:24:53 5 44462: Hot or Cold Pack completed Branden Sorto AIRCRAFT MAINTENANCE DIRECTOR [address], [place], [address], [facility] 11/25/2024 16:21:02 5 28893: Manual therapy completed Branden Sorto PTA [address], [place], [address], [facility] 11/25/2024 16:21:02 5 92650 Therapeutic Exercise (1:1) completed Josy Arce DPT [address], [place], [address], [facility] 11/23/2024 17:45:18 5 70210: Hot or Cold Pack completed Josy Arce DPT [address], [place], [address], [facility] 11/23/2024 17:45:24 5 77004: Manual therapy completed Josy Arce DPT [address], [place], [address], [facility] 11/23/2024 17:45:09 5 32747 Therapeutic Exercise (1:1) completed Josy Arce DPT [address], [place], [address], [facility] 11/21/2024 15:50:33 5 58393: Low complexity PT Eval completed Josy Arce DPT [address], [place], [address], [facility] 11/21/2024 15:51:36 4 90615 Therapeutic Exercise (1:1) completed Josy Arce DPT [address], [place], [address], [facility] 10/18/2024 10:50:09 4 35874: Low complexity PT Eval completed Josy Arce DPT [address], [place], [address], [facility] 10/18/2024 10:51:57 Imaging Results Imaging Date Name Status LastModified by Organiz ation Details LastModified Time 11/25/2024 XR, knee, 3 view completed INTERFACE [facility] [address], [place], [address], 11/25/2024 09:57:02 11/25/2024 XR, knee, 3 view completed INTERFACE [facility] [address], [place], [address], 11/25/2024 09:57:05 Procedure Notes None recorded. Medical Equipment None Reported. Allergies Allergen ID Allergen Name Allergen Category Reaction Reaction Severity Criticality Documentation Date Start Date Code Code System Note Provider Name and Address Organization Details Recorded Time 316198 Substance with sulfonami de structure and antibacte rial mechanism of action (substanc e) medicatio n Not available Not available Not available 08/25/2024 82941 8003 SNOMED Dylan Eason [facility], [facility] 4 07:50:32 260620 caffeine food,medi cation headache hives itching nausea rash respirato ry distress moderate moderate severe moderate severe moderate Not available 08/25/2024 1886 RxNorm Dylan Seguraam [facility], [facility] 4 07:50:32 144381 karin extract food Not available Not available Not available 08/25/2024 16093 97 RxNorm Dylan Seguraam [facility] 4 07:50:32 829090 pink dye Not available Not available Not available Not available 08/25/2024 UNK Dylan Eason [facility], [facility] 4 07:50:32 755206 red dye food,medi cation Not available Not available Not available 08/25/2024 UNK Dylan Eason [facility], [facility] 4 07:50:32 78271 morphine sulfate medicatio n Not available Not available Not available 01/18/20242013 06896 RxNorm Not Available [facility] 4 11:09:56 Medications Name Sig Start Date [...] Not Available Not Available Not Available Vitals Date Recorded Body height Body mass index (BMI) Body weight Provider Name and Address Organization Details Last Updated DateTime 11/25/2024 177.8 cm 35 kg/m2 193409.54 g warren boyer [place] [facility] [place] [facility] 11/25/2024 09:47:33 Social History None recorded. Functional Status None recorded. Mental Status None recorded. Family History Nothing Reported. Medical History No medical history recorded. Past Encounters Encounter ID Performer Location Encounter Start Date Encounter Closed Date Diagnosis/Indication Diagnosis SNOMED-CT Code Diagnosis ICD10 Code Diagnosis Note [id number] Hank Padilla PA-C [facility] [address] [place] [address] 08/25/2024 07:40:09 09/20/2024 10:58:56 Osteoarthritis of knee 694501640 M17.9 [id number] David Reina MD [facility] [address] [place] [place] [address] 09/06/2024 07:37:05 09/28/2024 08:14:06 Pain of right knee joint 0121981517 06985 M25.561 Primary go narthrosis, bilateral 272868773 M17.0 [id number] [facility]ha [facility] [address] [place] [address] 10/18/2024 10:17:18 10/18/2024 12:17:43 Osteoarthritis of right knee joint 6567919463 92718 M17.11 [id number] Clare GarciaMARGRET [facility] [address] [facility] [address] [place] [address] 11/03/2024 10:39:57 11/29/2024 04:02:56 Osteoarthritis of right knee joint 2631219875 32476 M17.11 [id number] KELLY Sinha [facility] [address] [place] [address] 11/21/2024 14:44:18 11/21/2024 15:57:48 Surgical follow-up 671350850 Z47.1 Z96.499 [id number] KELLY Sinha PT [address] [place] [address] 11/23/2024 14:48:44 11/23/2024 17:47:14 Surgical follow-up [id number] Z47.1 Z96.225 [id number] VANE Galvan 2[address] floor [address] [place] [address] 11/25/2024 09:23:17 12/08/2024 08:33:27 Postoperative visit 792904760 Z48.89 Knee joint prosthesis present 3815255063 02 Z96.130 [id number] Josy Arce DPT [facility] [address] [place] [address] 11/28/2024 13:23:05 11/28/2024 14:25:54 Surgical follow-up 882607743 Z47.1 Z96.228 [id number] Josy Arec DPT [facility] [address] [place] [address] 12/01/2024 12:29:30 12/01/2024 13:30:34 Surgical follow-up 546552022 Z47.1 Z96.053 [id number] Josy Arce DPT [facility] [address] [place] [address] 12/08/2024 14:26:55 12/08/2024 16:46:38 Surgical follow-up [id number] Z47.1 Z96.651 Health Concerns Section Related Observation LastModified by Organization Detai ls LastModified Time None Recorded Concern Status LastModified by Organization Details LastModified Time None Recorded Advance Directives Directive None Recorded Payers Encounter Date Sequence Insurance Name Policy Number Policy Felix Covered Member ID Felix Member ID Guarantor Name 11/23/2024 1 [facility] [employer] - DOS ON OR AFTER 2023 - ONE CARE (MEDICARE REPLACEMENT/AD VANTAGE - HMO) Oleksandr Mckeon [id number] Oleksandr Mckeon 11/25/2024 1 [facility] - DOS ON OR AFTER 2023 - ONE CARE (MEDICARE REPLACEMENT/AD VANTAGE - HMO) Oleksandr Mckeon [id number] Oleksandr Mckeon 11/28/2024 1 [employer] - DOS ON OR AFTER 2023 - ONE CARE (MEDICARE REPLACEMENT/AD VANTAGE - HMO) Oleksandr Mckeon [id number] Oleksandr Mckeon 12/01/2024 1 [facility] - DOS ON OR AFTER 2023 - ONE CARE (MEDICARE REPLACEMENT/AD VANTAGE - HMO) Oleksandr Mckeon [id number] Oleksandr Mckeon 12/08/2024 1 [facility] - DOS ON OR AFTER 2023 - ONE CARE (MEDICARE REPLACEMENT/AD VANTAGE - HMO) Oleksandr Mckeon [id number] Oleksandr Mckeon Notes Date Note Type Note Provider Name and Address Organization Details Recorded Time 11/23/2024 text/html Pt reporting valerie n about 04/25 coming into therapy, reporting good compliance with stretching at home. Josy Arce, DPT [address] [facility] [address] [facility], [place], [address], [facility] [place] [facility] 11/23/2024 17:47:08 11/25/2024 text/html I am seeing the patient today under the supervision of Dr. Rosales who was available but who did not see the patient. HPI: Patient comes in for follow-up, now 2 weeks status post right total knee arthroplasty. Happy with results. No significant complaints of pain. Range of motion with physical therapy is -10-85 degrees. No neurovascular changes. Past family, medical, social history and review of systems has been reviewed, updated and is located in the patient? s chart. Examination: The patient is well appearing and in no apparent distress. Alert and oriented x3. Gait is antalgic on the right with use of ambulatory aid. Examination right knee reveals a healing surgical incision. Appropriate postoperative effusion, no erythema or drainage. Neurovascularly intact. Range of motion from -10-85 degrees. No ligamentous instability to varus or valgus stress test at 0 or 30? ? ?. Calf is soft and nontender bilaterally. Appropriate strength with knee flexion/extension and ankle dorsiflexion/plantarf lexion. Able to actively straight leg raise. X-rays ordered, obtained and reviewed at [facility] today include 3 views of the right knee. Images demonstrate total knee arthroplasty components to be in good position and alignment. No evidence of any lysis or loosening. No acute fractures appreciated. Impression: Two weeks status post right total knee arthroplasty Plan: Nature of the diagnosis has been discussed today. At this point the patient is doing well. Continue physical therapy with a focus on regaining range of motion and strengthening. Patient is on {{ASA* Xarelto Eliqui s Plavix Coumadin Obdulia enox}} for DVT prophylaxis. Pain is controlled on oral medication. We reviewed the signs/symptoms of infection. Patient will follow up as scheduled, sooner if there are any issues. All questions have been answered. [employer] speech recognition layout technician software was used to create portions of this document. An attempt at proofreading has been made to minimize errors. Please call for corrections. Jackie Falk PA-C [address], [place], [address], [facility] 11/25/2024 10:16:09 11/28/2024 text/html Pt reporting 6 0. This weekend the weather flared up my gout and it killed me. Branden Sorto, AIRCRAFT MAINTENANCE DIRECTOR [address], [place], [address], [facility] 11/28/2024 14:25:49 12/01/2024 text/html I was doing my exercises but I think I did too much last night and had to stop. Josy Arce, DPT [address], [place], [address], [facility] 12/01/2024 16:53:23 12/08/2024 text/html Pt rates pain as a 5/10 coming in today. Pt is not sleeping well. 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 Pt reports going to the gym and stretching on a bike. I have been working hard on stretching. Zara Casas, AIRCRAFT MAINTENANCE DIRECTOR [address], [place], [address], [facility] 12/08/2024 16:46:32
--- OUTSIDE RECORDS SUMMARY | 2024-12-13 12:58 | XMS_ITS | Continuity of Care Document ---
Author Organization [facility], ARIADNE Crandall PT Address [address] [place] [address] Care Team Providers Care Poising Inspector Name Role Phone NICHO BOLTON Primary Care Provider Assessment Encounter Date Assessment Date Assessment LastModified by Organization Details LastModified Time 11/21/2024 11/21/2024 A: Pt presenting s/p R TKA c decreased strength, ROM and function. Performed HEP with good form, no pain. Written handout provided. P: Pt will benefit from PT as outlined in prescription (2/week for 6 weeks) to return patient to PLOF. Not available 11/21/2024 15:40:20 Plan of Treatment Reminders Order Date Submit [...] available PT FOLLOW-U P 2024 12:00P M GREGORIO SinhaT Not available Not available Not available PT FOLLOW-U P 2024 12:00P Hilario Arce DPT Not available Not available Not available Lab None recorded . Referral None recorded . Procedures None recorded . Surgeries None recorded . Imaging None recorded . Medication Orders None recorded . Patient Targets Encounter Date Encounter Id Patient Goals Patient Target Last Modified By Organization Details Last Modified Time 11/21/[id number] 3 weeks of Right Knee PROM 0-120 Not available Not available Not available 3 weeks of Walking up or down stairs with step to gait. Not available Not available Not available alf goal of Walking up or down stairs with reciprocal gait. Not available Not available Not available alf goal of Other PT/OT subsequent I with HEP Not available Not available Not available 3 weeks of Gait and Stance: Normalize gait on level surface without AD Not available Not available Not available photographic processor goal of Gait and Stance: I community ambulation with normal gait Not available Not available Not available 3 weeks of Pain 4/10 Not available Not available Not available photographic processor goal of Pain 0/10 Not available Not available Not available alf goal of Strength (knee extension - quadriceps femoris with manual muscle testing) 5/5 Not available Not available Not available alf goal of Strength (knee flexion - hamstring/gas trocnemius with manual muscle testing) 5/5 Not available Not available Not available Patient Instructions Encounter Date Encounter Id Patient Instructions Last Modified By Organization Details Last Modified Time 11/21/2024 Pt given and reviewed HEP, advised to hold off if any increase in pain. Pt advised to ice often to reduce pain. [email or web address] Not available 11/21/2024 15:52:04 Reason for Referral None Reported. Results Created Date Observation Date Name Description Value Unit Range Abnormal Flag Note LastModifiedBy Organization Detail LastModifiedTime 11/25/1911/25/2024 XR, knee, 3 view [email or web address]:/ [email or web address] ?Encry pted=s hAaTro YD8dLq bEUv6g %2BXZw aYqtaq 0bqfl% 2Fg9IQ a4ajBk vP9nXo QUaueC m3YtLR FvZlgJ JJ8mAn HZtai3 1i2861 AC0Kqb 3%2BAU 6GhKiQ trMwF INTERFACE [facility] Office [address] [facility] [address], [place], [address], 11/25/2024 09:57:02 11/25/1911/25/2024 XR, knee, 3 view [email or web address]:/ [email or web address] ?Encry pted=s hAaTro YD8dLq bEUv6g %2BXZw aYqtaq 0bqfl% 2Fg9IQ a4ajBk vP9nXo QUaueC m3YtLR FvZlgJ JJ8mAn HZtai3 4a1301 AC0Kqb 3%2BAU 6GhKiQ trMwF INTERFACE [facility] [address], [place], [address], 11/25/2024 09:57:05 Result Notes None recorded. 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 Procedures Surgical History Date Name Laterality Status Provider Name and Address Organization Details Recorded Time 5 18663 Therapeutic Exercise (1:1) completed Zara Casas, SHIPBOARD INTELLIGENCE ANALYST [address], [place], [address], [facility] 12/08/2024 16:43:56 5 99459: Hot or Cold Pack completed Zara Stuetzel, SHIPBOARD INTELLIGENCE ANALYST [address], [place], [address], [facility] 12/08/2024 16:43:52 5 74763: Manual therapy completed Zara Casas, SHIPBOARD INTELLIGENCE ANALYST [address], [place], [address], [facility] 12/08/2024 16:44:00 5 85237 Therapeutic Exercise (1:1) completed Branden Sorto PTA [address], [place], [address], [facility] 11/30/2024 12:03:45 5 53420: Hot or Cold Pack completed Branden Sorto PTA [address], [place], [address], [facility] 12/01/2024 13:24:41 5 66219: Manual therapy completed Branden Sorto PTA [address], [place], [address], [facility] 11/30/2024 12:03:45 5 10429 Therapeutic Exercise (1:1) completed Branden Sorto PTA [address], [place], [address], [facility] 11/28/2024 14:24:53 5 29829: Hot or Cold Pack completed Branden Sorto PTA [address], [place], [address], [facility] 11/25/2024 16:21:02 5 63716: Manual therapy completed Branden Sorto PTA [address], [place], [address], [facility] 11/25/2024 16:21:02 5 37268 Therapeutic Exercise (1:1) completed Josy Arce DPT [address], [place], [address], [facility] 11/23/2024 17:45:18 5 67534: Hot or Cold Pack completed Josy Arce DPT [address], [place], [address], [facility] 11/23/2024 17:45:24 5 42854: Manual therapy completed Josy Arce DPT [address], [place], [address], [facility] 11/23/2024 17:45:09 5 89750 Therapeutic Exercise (1:1) completed Josy Arce DPT [address], [place], [address], [facility] 11/21/2024 15:50:33 5 47955: Low complexity PT Eval completed Josy Arce DPT [address], [place], [address], [facility] 11/21/2024 15:51:36 4 88248 Therapeutic Exercise (1:1) completed Josy Arce DPT [address] [facility], [place], [address], [facility] 10/18/2024 10:50:09 4 44693: Low complexity PT Eval completed Josy Arce DPT [address], [place], [address], [facility] 10/18/2024 10:51:57 Imaging Results None recorded. Procedure Notes None recorded. Medical Equipment None Reported. Allergies Allergen ID Allergen Name Allergen Category Reaction Reaction Severity Criticality Documentation Date Start Date Code Code System Note Provider Name and Address Organization Details Recorded Time 751175 Substance with sulfonami de structure and antibacte rial mechanism of action (substanc e) medicatio n Not available Not available Not available 08/25/2024 43195 8003 [facility] 07:50:32 772286 caffeine food,medi cation headache hives itching nausea rash respirato ry distress moderate moderate severe moderate severe moderate Not available 08/25/2024 1886 RxNorm Dylan Eason [facility] 4 07:50:32 656131 karin extract food Not available Not available Not available 08/25/2024 32358 97 RxNorm Dylan Eason [facility] 4 07:50:32 179303 pink dye Not available Not available Not available Not available 08/25/2024 UNK Dylan Eason [facility] 4 07:50:32 456613 red dye food,medi cation Not available Not available Not available 08/25/2024 SANJEEV Eason [facility] 4 07:50:32 57584 morphine sulfate medicatio n Not available Not available Not available 01/18/20242013 84543 RxNorm Not Available [facility] 4 11:09:56 Medications Name Sig Start Date [...] SNOMED-CT Code Diagnosis ICD10 Code Diagnosis Note [id number] MARGRET Rivera 2nd floor [address] [facility] [place] [address] 11/03/2024 10:39:57 11/29/2024 04:02:56 Osteoarthritis of right knee joint 4758740409 62997 M17.11 [id number] KELLY Sinha PT [address] [place] [address] 11/21/2024 14:44:18 11/21/2024 15:57:48 Surgical follow-up 424254178 Z47.1 Z96.651 Health Concerns Section Related Observation LastModified by Organization Detai ls LastModified Time None Recorded Concern Status LastModified by Organization Details LastModified Time None Recorded Payers Encounter Date Sequence Insurance Name Policy Number Policy Felix Covered Member ID Felix Member ID Guarantor Name 11/21/2024 1 [facility] - DOS ON OR AFTER 2023 - ONE CARE (MEDICARE REPLACEMENT/AD VANTAGE - HMO) Oleksandr Mckeon [id number] Oleksandr Mckeon Notes Date Note Type Note Provider Name and Address Organization Details Recorded Time 11/21/2024 text/html Pt presenting s/ p R TKA. Pt currently ambulating with RW with altered gait mechanics. Performing stairs with step to pattern with B UE support. Pt fatigued quickly with activity. Dressing intact, moderate swelling present. Pain well controlled with medication and cryotherapy. Pt reporting difficulty sleeping through the night. Pain at present: 5/10; at worst 8/10 Josy Arce DPT [address], [place], [address], [facility] 11/21/2024 15:57:43
--- OUTSIDE RECORDS SUMMARY | 2024-12-13 12:58 | XMS_ITS | Continuity of Care Document ---
Author Organization [facility], ARIADNE Coley 2nd floor Address [address] [place] [address] Care Team Providers Care Gang Sawyer Name Role Phone NICHO BOLTON Primary Care Provider Assessment No assessment recorded. Plan of Treatment Reminders Order Date Submit Date Provider Last Modified By Organization Details Last Modified Time Details Appointments PT FOLLOW-UP 2024 01:00P M Zaina Stephens PTA Not available Not available Not available RECHECK 15 2024 02:30P M David Reina MD Not available Not available Not available PT FOLLOW-UP 2024 01:30P M Zaina Stephens PTA Not available Not available Not available PT FOLLOW-UP 2024 12:00P M Josy Arce DPT Not available Not available Not available PT FOLLOW-UP 2024 12:00P Hilario Arce DPT Not available Not available Not available Lab None recorded. Referral None recorded. Procedures None recorded. Surgeries None recorded. Imaging XR, knee, 3 view - room 201 1 p/o rtkr ([place]) 2024 025 [facility], [address], [place], [address], 12/08/2024 08:33:27 Medication Orders oxycodone 15 mg tablet 2024 025 [id number], [address], [place], [place], [id number], 11/25/2024 10:16:05 Patient TargetsNo targets recorded. Patient InstructionsNo instructions recorded. Reason for Referral None Reported. Results Created Date Observation Date Name Description Value Unit Range Abnormal Flag Note LastModifiedBy Organization Detail LastModifiedTime 11/25/1911/25/2024 XR, knee, 3 view [email or web address] ?Encry pted=s hAaTro YD8dLq bEUv6g %2BXZw aYqtaq 0bqfl% 2Fg9IQ a4ajBk vP9nXo QUaueC m3YtLR FvZlgJ JJ8mAn HZtai3 6c9126 AC0Kqb 3%2BAU 6GhKiQ trMwF INTERFACE [facility] [address], [place], [address], 11/25/2024 09:57:02 11/25/1911/25/2024 XR, knee, 3 view [email or web address]:/ [email or web address] ?Encry pted=s hAaTro YD8dLq bEUv6g %2BXZw aYqtaq 0bqfl% 2Fg9IQ a4ajBk vP9nXo QUaueC m3YtLR FvZlgJ JJ8mAn HZtai3 6l4067 AC0Kqb 3%2BAU 6GhKiQ trMwF INTERFACE [facility] [address], [place], [address], 11/25/2024 09:57:05 Result Notes None recorded. 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 Procedures Surgical History Date Name Laterality Status Provider Name and Address Organization Details Recorded Time 5 58639 Therapeutic Exercise (1:1) completed Zara Casas, COORDINATOR HOTELS [address], [place], [address], [facility] 12/08/2024 16:43:56 5 29128: Hot or Cold Pack completed Zara Casas, COORDINATOR HOTELS [address], [place], [address], [facility] 12/08/2024 16:43:52 5 11001: Manual therapy completed Zara Casas, COORDINATOR HOTELS [address], [place], [address], [facility] 12/08/2024 16:44:00 5 59714 Therapeutic Exercise (1:1) completed Branden Sorto, COORDINATOR HOTELS [address], [place], [address], [facility] 11/30/2024 12:03:45 5 28764: Hot or Cold Pack completed Branden Sorto COORDINATOR HOTELS [address], [place], [address], [facility] 12/01/2024 13:24:41 5 88835: Manual therapy completed Branden Sorto COORDINATOR HOTELS [address], [place], [address], [facility] 11/30/2024 12:03:45 5 48822 Therapeutic Exercise (1:1) completed Branden Sorto PTA [address], [place], [address], [facility] 11/28/2024 14:24:53 5 34436: Hot or Cold Pack completed Branden Sorto PTA [address], [place], [address], [facility] 11/25/2024 16:21:02 5 17260: Manual therapy completed Branden Sorto PTA [address], [place], [address], [facility] 11/25/2024 16:21:02 5 87953 Therapeutic Exercise (1:1) completed Josy Arce DPT [address], [place], [address], [facility] 11/23/2024 17:45:18 5 06093: Hot or Cold Pack completed Josy Arce DPT [address], [place], [address], [facility] 11/23/2024 17:45:24 5 64920: Manual therapy completed Josy Arce DPT [address], [place], [address], [facility] 11/23/2024 17:45:09 5 37844 Therapeutic Exercise (1:1) completed Josy Arce DPT [address], [place], [address], [facility] 11/21/2024 15:50:33 5 27477: Low complexity PT Eval completed Josy Arce DPT [address], [place], [address], [facility] 11/21/2024 15:51:36 4 34946 Therapeutic Exercise (1:1) completed Josy Arce DPT [address], [place], [address], [facility] 10/18/2024 10:50:09 4 46170: Low complexity PT Eval completed Josy Arce DPT [address], [place], [address], [facility] 10/18/2024 10:51:57 Imaging Results None recorded. Procedure Notes None recorded. Medical Equipment None Reported. Allergies Allergen ID Allergen Name Allergen Category Reaction Reaction Severity Criticality Documentation Date Start Date Code Code System Note Provider Name and Address Organization Details Recorded Time 830550 Substance with sulfonami de structure and antibacte rial mechanism of action (substanc e) medicatio n Not available Not available Not available 08/25/2024 51434 8003 SNOMED Dylanzuri Eason [facility] 4 07:50:32 660879 caffeine food,medi cation headache hives itching nausea rash respirato ry distress moderate moderate severe moderate severe moderate Not available 08/25/2024 1886 RxNorm Dylan Eason [facility] 4 07:50:32 658069 karin extract food Not available Not available Not available 08/25/2024 40701 97 RxNorm Dylan Eason [facility] 4 07:50:32 897756 pink dye Not available Not available Not available Not available 08/25/2024 UNK Dylan Eason [facility], [facility] 4 07:50:32 860937 red dye food,medi cation Not available Not available Not available 08/25/2024 UNK Dylan Eason [facility] 4 07:50:32 53795 morphine sulfate medicatio n Not available Not available Not available 01/18/20242013 29011 RxNorm Not Available [facility] 4 11:09:56 Medications Name Sig Start Date [...] Updated DateTime 11/25/2024 177.8 cm 35 kg/m2 267684.54 g warren lopezbar [place] [facility] [place] [facility] 11/25/2024 09:47:33 Social History None recorded. Functional Status None recorded. Mental Status None recorded. Family History Nothing Reported. Medical History No medical history recorded. Past Encounters Encounter ID Performer Location Encounter Start Date Encounter Closed Date Diagnosis/Indication Diagnosis SNOMED-CT Code Diagnosis ICD10 Code Diagnosis Note [id number] Clare GarciaMARGRET 2nd floor [address] [place] [address] 11/03/2024 10:39:57 11/29/2024 04:02:56 Osteoarthritis of right knee joint 3502129826 15764 M17.11 [id number] KELYL Sinha PT [address] [place] [address] 11/21/2024 14:44:18 11/21/2024 15:57:48 Surgical follow-up 556110348 Z47.1 Z96.150 [id number] KELLY Sinha PT [address] [place] [address] 11/23/2024 14:48:44 11/23/2024 17:47:14 Surgical follow-up 879096760 Z47.1 Z96.876 [id number] VANE Galvan 2nd floor [address] [place] [address] 11/25/2024 09:23:17 12/08/2024 08:33:27 Postoperative visit 352348210 Z48.89 Knee joint prosthesis present 3023622646 02 Z96.651 Health Concerns Section Related Observation LastModified by Organization Detai ls LastModified Time None Recorded Concern Status LastModified by Organization Details LastModified Time None Recorded Payers Encounter Date Sequence Insurance Name Policy Number Policy Felix Covered Member ID Felix Member ID Guarantor Name 11/25/2024 1 [facility] - DOS ON OR AFTER 2023 - ONE CARE (MEDICARE REPLACEMENT/AD VANTAGE - HMO) Oleksandr Mckeon [id number] [place] Notes Date Note Type Note Provider Name and Address Organization Details Recorded Time 11/25/2024 text/html I am seeing the patient [...] raise. X-rays ordered, obtained and reviewed at [facility] today include 3 views of the right [...] any issues. All questions have been answered. [employer] speech recognition hearing impaired itinerant teacher software was used to create portions of this document. An attempt at proofreading has been made to minimize errors. Please call for corrections. Jackie Falk PA-C [address] [place] [address], [place], [address], [facility] [place] [facility] 11/25/2024 10:16:09
--- OUTSIDE RECORDS SUMMARY | 2024-12-13 12:58 | XMS_ITS | Clinical Summary ---
Author Organization [facility] Address [address] [place] [address] Care Team Providers Care Card Dealer Name Role Phone Unavailable Primary Care Provider [...] of 2) 2014 Hypertension Screening (#1) 10/31/2023 Dtz-SRMAK-40 (3 - season) 2024 021, 01/29/2021 Imm-Influenza (#1) 2024 09/23/2016, 1 , 10/13/2014, Additional history exists Alcohol and Drug Screen 11/16/2024 Depression Annual Screen 11/16/2024 Imm-DTaP/Tdap/Td (3 - Td or Tdap) 04/19/2031 021, 07/23/2010 Imm-Hepatitis B Completed 02/24/2017, 03/16, 09/04/2015 Insurance [facility]
--- OUTSIDE RECORDS SUMMARY | 2024-12-13 12:58 | XMS_ITS | Clinical Summary ---
Author Organization [facility] Address [address] [place] [address] Care Team Providers Care Cellular Tower Climber Name Role Phone Kvng Oconnor MD Primary Care Provider [phone] Allergies Active Allergy Reactions Criticality Noted Date [...] age to complete this topic Care Teams Cellular Tower Climber Relationship Specialty Start Date End Date Kvng Oconnor MD [address] [place] [address] PCP - General Internal Medicine 01/01/24
--- OUTSIDE RECORDS SUMMARY | 2024-12-13 12:58 | XMS_ITS | Continuity of Care Document ---
Author Organization [facility], [facility] Address [address] [place] [address] Care Team Providers Care Matlab Developer Name Role Phone NICHO BOLTON Primary Care Provider Assessment Encounter Date Assessment Date Assessment LastModified by Organization Details LastModified Time 11/28/2024 11/28/2024 A: Pt able to improve with more LE arom exercise to help improve balance and stability. Pt had minimal increase with passive bending. Pt is very stiff in both planes. P: Continue with POC, progress as tolerated. [email or web address] Not available 11/28/2024 14:25:34 Plan of Treatment Reminders Order Date Submit [...] a4ajBk vP9nXo QUaueC m3YtLR FvZlgJ JJ8mAn HZtai3 3i1697 AC0Kqb 3%2BAU 6GhKiQ trMwF INTERFACE [facility] [address], [place], [address], 11/25/2024 09:57:02 11/25/1911/25/2024 XR, knee, 3 view http:/ [email or web address] ?Encry pted=s hAaTro YD8dLq bEUv6g %2BXZw aYqtaq 0bqfl% 2Fg9IQ a4ajBk vP9nXo QUaueC m3YtLR FvZlgJ JJ8mAn HZtai3 2k5122 AC0Kqb 3%2BAU 6GhKiQ trMwF INTERFACE [facility] [address], [place], [address], 11/25/2024 09:57:05 Result Notes None recorded. 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 Procedures Surgical History Date Name Laterality Status Provider Name and Address Organization Details Recorded Time 5 51588 Therapeutic Exercise (1:1) completed Zara Casas, LAYAWAY CLERK [address], [place], [address], [facility] 12/08/2024 16:43:56 5 82209: Hot or Cold Pack completed Zara Caass, LAYAWAY CLERK [address], [place], [address], [facility] 12/08/2024 16:43:52 5 26814: Manual therapy completed Zara Casas, LAYAWAY CLERK [address], [place], [address], [facility] 12/08/2024 16:44:00 5 90684 Therapeutic Exercise (1:1) completed Branden Sorto PTA [address], [place], [address], [facility] 11/30/2024 12:03:45 5 56909: Hot or Cold Pack completed Branden Sorto LAYAWAY CLERK [address], [place], [address], [facility] 12/01/2024 13:24:41 5 23781: Manual therapy completed Branden Sorto, LAYAWAY CLERK [address], [place], [address], [facility] 11/30/2024 12:03:45 5 26562 Therapeutic Exercise (1:1) completed Branden Sorto PTA [address], [place], [address], [facility] 11/28/2024 14:24:53 5 76869: Hot or Cold Pack completed Branden Sorto PTA [address], [place], [address], [facility] 11/25/2024 16:21:02 5 68143: Manual therapy completed Branden Sorto PTA [address], [place], [address], [facility] 11/25/2024 16:21:02 5 80838 Therapeutic Exercise (1:1) completed Josy Arce DPT [address], [place], [address], [facility] 11/23/2024 17:45:18 5 00103: Hot or Cold Pack completed Josy Arce DPT [address], [place], [address], [facility] 11/23/2024 17:45:24 5 37310: Manual therapy completed Josy Arce DPT [address], [place], [address], [facility] 11/23/2024 17:45:09 5 04944 Therapeutic Exercise (1:1) completed Josy Arce DPT [address], [place], [address], [facility] 11/21/2024 15:50:33 5 17430: Low complexity PT Eval completed Josy Arce DPT [address], [place], [address], [facility] 11/21/2024 15:51:36 4 70330 Therapeutic Exercise (1:1) completed Josy Arce DPT [address], [place], [address], [facility] 10/18/2024 10:50:09 4 49765: Low complexity PT Eval completed Josy Arce, DPT [address], [place], [address], [facility] 10/18/2024 10:51:57 Imaging Results None recorded. Procedure Notes None recorded. Medical Equipment None Reported. Allergies Allergen ID Allergen Name Allergen Category Reaction Reaction Severity Criticality Documentation Date Start Date Code Code System Note Provider Name and Address Organization Details Recorded Time 762903 Substance with sulfonami de structure and antibacte rial mechanism of action (substanc e) medicatio n Not available Not available Not available 08/25/2024 [address] [facility] 4 07:50:32 495980 caffeine food,medi cation headache hives itching nausea rash respirato ry distress moderate moderate severe moderate severe moderate Not available 08/25/[address] [facility] 4 07:50:32 729218 karin extract food Not available Not available Not available 08/25/2024 [address] [facility] 4 07:50:32 829537 pink dye Not available Not available Not available Not available 08/25/[address] [facility] 4 07:50:32 931946 red dye food,medi cation Not available Not available Not available 08/25/[address] [facility] 4 07:50:32 45230 morphine sulfate medicatio n Not available Not available Not available 01/18/20242013 60638 RxNorm Not Available [facility] 4 11:09:56 Medications Name Sig [...] SNOMED-CT Code Diagnosis ICD10 Code Diagnosis Note [id number] Clare [place] APRN [facility] [address] [place] [address] 11/03/2024 10:39:57 11/29/2024 04:02:56 Osteoarthritis of right knee joint 8127312390 68968 M17.11 [id number] Josy Arce DPT [facility] [address] [place] [address] 11/21/2024 14:44:18 11/21/2024 15:57:48 Surgical follow-up 368694745 Z47.1 Z96.904 [id number] [facility] [address] [place] [address] 11/23/2024 14:48:44 11/23/2024 17:47:14 Surgical follow-up 023621997 Z47.1 Z96.149 [id number] Jackie Falk PA-C [facility] [address] [place] [address] 11/25/2024 09:23:17 12/08/2024 08:33:27 Postoperative visit 555135451 Z48.89 Knee joint prosthesis present 5000366872 02 Z96.978 [id number] Josy Arce DPT [facility] [address] [place] [address] 11/28/2024 13:23:05 11/28/2024 14:25:54 Surgical follow-up [id number] Z47.1 Z96.651 Health Concerns Section Related Observation LastModified by Organization Detai ls LastModified Time None Recorded Concern Status LastModified by Organization Details LastModified Time None Recorded Payers Encounter Date Sequence Insurance Name Policy Number Policy Felix Covered Member ID Felix Member ID Guarantor Name 11/28/2024 1 [facility] - DOS ON OR AFTER 2023 - ONE CARE (MEDICARE REPLACEMENT/AD VANTAGE - HMO) Oleksandr Mckeon [id number] Oleksandr Mckeon Notes Date Note Type Note Provider Name and Address Organization Details Recorded Time 11/28/2024 text/html Pt reporting 6/10. This weekend the weather flared up my gout and it killed me. Branden Sorto, LAYAWAY CLERK [address] [facility] [address], [place], [address], [facility] 11/28/2024 14:25:49
--- OUTSIDE RECORDS SUMMARY | 2024-12-13 12:58 | XMS_ITS | Clinical Summary ---
Author Organization [facility] Address [address] [place] [address] Phone Care Team Providers Care Commercial Lawn Specialist Name Role Phone Kvng Oconnor MD Primary Care Provider [phone] Allergies Active Allergy Reactions Criticality Noted Date [...] puff into the lungs. Active iron-vit C-vit K18-tyizq acid [phone] xu-ea-xqf-mg tablet Take 1 tablet by mouth 1 [...] 02/10/2019 Immunizations Name Administration Dates Next Due [employer] (ages 12 & older) MARKUS S-CoV-2 COVID-19, [...] PM EST Office Visit Bariat[facility] Surgery - [place] [address] [phone] Nitish Hawkins MD [address] [address] 03/01/2025 7:30 AM EDT Hospital Encounter [facility] [address] [place] [phone] Hank Fernandez MD [address] [phone] 03/01/2025 7:30 AM EDT - 03/01/2025 9:00 AM EDT Surgery [facility] [place] [address] [place] [phone] Hank Fernandez MD [address] [phone] urolift [[id number] (CPT??)] Scheduled Procedures Name Priority Associated Diagnoses [...] Recently Relevant to Health Maintenance Care Teams Commercial Lawn Specialist Relationship Specialty Start Date End Date Kvng Oconnor [facility] [place] PCP - General Internal Medicine 03/04/18
--- OUTSIDE RECORDS SUMMARY | 2024-12-13 12:58 | XMS_ITS | Encounter Summary ---
Author Organization [facility] Address [address] [place] [address] Care Team Providers Care Certified Nurses Aide Name Role Phone Unavailable Primary Care Provider Unavailabl e Encounter Details Date Type Department Care Team (Late st Contact Info) Description 03/06/2022 Dental Interim Note [facility] [address] [facility] [address] [place] [address] Angella Boyer, BLAZE [address] [place] [address] Social History Tobacco Use Types Packs/Day Years [...]
[2024-12-13 13:09] LABS: Erythrocyte Sedimentation Rate 5 MM/HR (0-15)
[2024-12-13 13:17] LABS: Alanine Aminotransferase 25 U/L (0-40); Alkaline Phosphatase 85 U/L (39-117); Anion Gap 7 (12-20); Aspartate Amino Transferase 26 U/L (5-37); Bilirubin Total 0.3 mg/dL (0.0-1.0); Blood Urea Nitrogen 25 mg/dL (9-16); C Reactive Protein 0.81 mg/dL (< or = 0.50); Calcium 8.8 mg/dL (8.4-10.2); Carbon Dioxide 29 mmol/L (22-29); Chloride 104 mmol/L (96-108); Estimated Glomerular Filt Rate > 60; Glucose Random 87 mg/dL (60-115); Potassium 4.3 mmol/L (3.3-5.1); Sodium 136 mmol/L (135-145); Total Protein 6.4 g/dL (6.5-8.0); Uric Acid 4.5 mg/dL (3.4-7.0)
== END 2024-12-13 11:15 | disposition home or self-care (01) ==
LOC: HO.LAB 11:14
PROVIDERS: PCP Psychiatry & Neurology Neurology; Visit Provider Student in an Organized Health Care Education/Training Program
DX: M1A.09X1 Idiopathic chronic gout, multiple sites, with tophus (tophi) (principal); Z79.899 Other long term (current) drug therapy
CPT/HCPCS: 36415; 80053; 84550; 85025; 85652; 86140; 99212

== ENCOUNTER 2024-12-13 11:14 | Outpatient (AMB) | payer OTHER, SELFPAY ==
[2024-12-13 11:17] VITALS: BP 142/66; PULSE 64; O2SAT 64; BMI 34.4
--- NOTE | 2024-12-13 11:17 | MHC.OFFVIS ---
Vital Signs 12/13/24 11:17 Height 5 ft 10 in Weight 239 lb 10.279 oz BMI 34.4 BP 142/66 H Blood Pressure Location Rt brachial Position Sitting Pulse 64 Pulse Source Pulse Oximeter Pulse Oximetry (%) 64 L Intake Visit Reasons: RA Intake Note: Patient last see by Doctor Isabel Matamoros 10/20/24. Presents today for RA follow up and XR Spine test results. Medical Billing Coordinator Required: No Accompanied by: Self / Same As Patient Allergies caffeine Allergy (Intermediate, Verified 12/13/24 11:22) Headache morphine Allergy (Intermediate, Verified 12/13/24 11:22) Headache red dye Allergy (Intermediate, Verified 12/13/24 11:22) Rash karin Allergy (Intermediate, Verified 12/13/24 11:22) Rash Sulfa (Sulfonamide Antibiotics) Allergy (Intermediate, Verified 12/13/24 11:22) Rash Medication List - Last Reconciled 12/13/24 by Isabel Matamoros MD allopurinol 500 mg (5 x 100 mg) PO DAILY 90 days alprazolam mg PO amlodipine 5 mg PO BID carbamazepine ER 400 mg PO BID diclofenac sodium 75 mg PO BID fluticasone propion-salmeterol 250-50 mcg/dose (Wixela Inhub) 1 ea inhalation BID montelukast 10 mg PO QPM olmesartan 40 mg PO DAILY oxycodone-acetaminophen 10-325 mg tabs PO pravastatin 20 mg PO DAILY sennosides (senna) mg PO HPI Comments Details: Patient is a 58-year-old gentleman former alcoholic and former cocaine user, with hypertension and history of chronic tophaceous gout presents for follow-up for preop clearance for his Right Total Knee Replacement Interval History: Last seen 10/20/2024 with me. At that time patient was stable. Had right total knee replacement 11/11/2024. Patient notes that a few days after the surgery he had a mild gout flare which responded to colchicine. Today, Patient is doing well No further gout flares Rheumatologic History: Patient with a longstanding history of crystal proven (results not seen) chronic tophaceous gout who presented to [facility] 08/19/2024. 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 Currently does not drink alcohol (has been sober for 20 years), trying to avoid fructose as well as red meat and shellfish. Current Rheumatology Medication(s): Allopurinol 500mg daily Colchicine 0.6mg prn PFSH Medical History (Updated 12/13/24 @ 11:41 by Isabel Matamoros MD) Knee osteoarthritis On allopurinol therapy Surgical History History of right knee joint replacement Family History Father Parkinsons Social History Household Members: None Housing: Apartment Alcohol intake: former Patient Tobacco Use Status: Former Tobacco user Cigarette Packs Per Day: 2 Years Smoked: 36 Substance Use Type: Marijuana Review of Systems Const Details: Review of Systems Constitutional: Denies fever, chills, weight loss ENT: Denies vision changes, eye pain or eye redness, dental caries, dry mouth GI: Denies nausea, vomiting, diarrhea, abdominal pain, change in BM Pulm: Denies SOB, ARROYO, hemoptysis, wheezing Cards: Denies chest pain, palpitations Skin: Denies Raynaud's, rash, nail changes, photosensitivity, 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 ?Gait normal. Constitutional: ?Mucous membranes pink and moist patient alert and cooperative HEENT: ?Conjunctiva and sclera clear. ?Pupils equal round and reactive to light. ?No lymphadenopathy. Resp: ?Normal respiratory effort and able to speak in complete sentences. ?Clear to auscultation bilaterally. ?No crackles, rales, rhonchi, wheezes heard. Cards: ?Regular rate and rhythm. ?S1 and S2 heard no murmurs. ?Radial pulses intact bilaterally MSK: ?No deformity, swelling, abnormalities noted to bilateral hands. ?No evidence of synovitis. ?Able to move all joints with full range of motion, without limitation. Bilateral crepitus on knees. No effusion. No warmth or tenderness to palpation. Right knee with surgical scar anteriorly. Well healed. Skin: No tophi noted to the ears. No tophi noted to the elbows. Healed surgical scar seen on the left elbow. Prominent PIPs of the 3rd and 4th digits on the right. Results Reviewed Results Reviewed: Laboratory Tests 08/19/24 14:53 WBC 6.7 RBC 4.00 L Hgb 12.7 L Hct 37.2 L Plt Count 175 ESR 2 Sodium 138 Potassium 4.5 Chloride 106 Carbon Dioxide 25 BUN 28 H Creatinine 1.18 Estimated GFR > 60 Uric Acid 4.0 AST 27 ALT 25 C-Reactive Protein 0.25 Assessment & Plan Assessment & Plan (1) Gout: Code(s): M10.9 - Gout, unspecified Category: Medical Qualifiers: Gout site: multiple sites Gout etiology: idiopathic Chronicity: chronic Presence of tophus: with tophus Qualified Code(s): M1A.09X1 - Idiopathic chronic gout, multiple sites, with tophus (tophi) Plan: # Chronic crystal proven tophaceous gout Goal UA < 5 given his history of tophi Last uric acid done 08/19/2024 has uric acid at goal of 4. Continue allopurinol 500mg daily Plan - Allopurinol 500mg daily - Labs today: CBC, CMP, ESR, CRP, UA - RTC 6 months - Labs before visit: CBC, CMP, ESR, CRP, UA (2) Knee osteoarthritis: Comment: Right TKA 10/2024 Code(s): M17.9 - Osteoarthritis of knee, unspecified Category: Medical Qualifiers: Osteoarthritis type: primary Laterality: bilateral Qualified Code(s): M17.0 - Bilateral primary osteoarthritis of knee Plan: #Bilateral Knee OA Stable S/p Right knee replacement (3) On allopurinol therapy: Code(s): Z79.899 - Other care home (current) drug therapy Category: Medical Plan: #Long-term Current Use of Allopurinol Risks and benefits of allopurinol discussed with patient Benefits include decreased gout flares, remission of gout and reduction of tophi Risks include allopurinol hypersensitivity syndrome which is a severe cutaneous adverse reaction associated with allopurinol use particularly in patients who are HLA B*5801 positive, increased transaminases, GI upset including diarrhea, nausea and vomiting, and other dermatologic manifestations. Plan I spent 30 minutes reviewing the record and labs, seeing the patient, discussing the treatment plan and documenting in the medical record Orders: Orders Complete Blood Count Auto Diff 6 Months M1A.09X1 - Idiopathic chronic gout, multiple sites, with tophus (tophi), Z79.899 - Other ribbon sweatband operator (current) drug therapy C Reactive Protein 6 Months M1A.09X1 - Idiopathic chronic gout, multiple sites, with tophus (tophi), Z79.899 - Other care home (current) drug therapy Erythrocyte Sedimentation Rate 6 Months M1A.09X1 - Idiopathic chronic gout, multiple sites, with tophus (tophi), Z79.899 - Other care home (current) drug therapy Uric Acid 6 Months M1A.09X1 - Idiopathic chronic gout, multiple sites, with tophus (tophi), Z79.899 - Other ribbon sweatband operator (current) drug therapy Comprehensive Met. Panel 6 Months M1A.09X1 - Idiopathic chronic gout, multiple sites, with tophus (tophi), Z79.899 - Other ribbon sweatband operator (current) drug therapy Medications: New colchicine 0.6 mg PO DAILY PRN 7 tabs 0RF gout flare M1A.09X1 - Idiopathic chronic gout, multiple sites, with tophus (tophi) Refilled allopurinol 500 mg (5 x 100 mg) PO DAILY 90 days 450 tabs 1RF M1A.09X1 - Idiopathic chronic gout, multiple sites, with tophus (tophi), Z79.899 - Other ribbon sweatband operator (current) drug therapy Coding Level of Care Code Est Pt Level 4 (13844) Diagnoses Idiopathic chronic gout of multiple sites with tophus M1A.09X1 Gout site: multiple sites Gout etiology: idiopathic Chronicity: chronic Presence of tophus: with tophus Primary osteoarthritis of both knees M17.0 Osteoarthritis type: primary Laterality: bilateral On allopurinol therapy Z79.899
--- OUTSIDE RECORDS SUMMARY | 2024-12-13 12:31 | XMS_ITS | Data Portability ---
Author Organization [employer] Address [address] [place] [address] Care Team Providers Care Schedule Checker Name Role Phone HIM CCA OTHER CHE NICHO Primary Care Provider Assessment Encounter Date Assessment Date Assessment LastModified by Organization Details LastModified Time 10/01/2023 10/01/2023 58 y/o with c/o nocturnal cough, no fevers, no sick contacts, normal exam, requsting short term use of robitussin with codeine to manage nocturnal symptoms. five day supply provided. [email or web address] Not available 10/01/2023 14:19:22 10/03/2023 10/03/2023 I provided real -time medical direction via phone for this encounter, and was available for additional phone based assistance as needed. I have reviewed and agree with the Assessment and Plan as documented by the Global Professional. Patient given the opportunity to ask questions. As per above, 2nd call for patient with nonproductive cough. Also expresses viral URI symptoms. Denies any chest pain or shortness of breath. Per treatment plant mechanic on the scene appears nontoxic and has stable vitals. Was prescribed DayQuil and NyQuil which he has been taking for the past several days and experienced some improvement. Asked for antibiotics and cough medication with codeine which we are unable to prescribe. Would suggest that since symptoms are improving that we continue with the current course and to keep well hydrated. We discussed the diagnostic uncertainty of home visits and the risk associated with this. In this case, the patient and I felt this to be an acceptable and reasonable amount of risk given the benefit of avoiding an ED visit. We discussed the need to seek care urgently/emergent ly in the setting of any new or worsening serious symptoms, particularly fever chills Not available 10/03/2023 21:58:54 08/27/2024 08/27/2024 I provided real -time medical direction via phone for this encounter and was available for additional phone-based assistance as needed. I have reviewed and agree with the Assessment and Plan as documented by the Global Professional. Patient given the opportunity to ask questions. Our service contacted for an assessment of: Urinary symptoms As per above, patient with frequency and occasional back pain. No significant dysuria. Seen by this service approximately a month ago and had a urine analysis which was negative as well as culture which showed urogenital minda not consistent with a UTI. Per treatment plant mechanic on the scene, vital signs are stable the patient is afebrile. UA noted to be negative. Impression: Frequent urinary symptoms without evidence of a urinary tract infection Plan: Patient wanted a culture to be done so we sent that off and we will follow up on it. I do think his symptoms are not related to recurrent infections and more likely related to BPH although there is the outside chance that he could have prostatitis. I recommend an in-person visit with his PCP for rectal exam and BPH testing as well as PSA. Allergies: Reviewed PCP f/u: Patient would benefit from an in-person a exam to evaluate for BPH as well as PSA testing. We will follow-up on urine culture. We discussed the diagnostic uncertainty of home visits and the risk associated with this. In this case, the patient and I felt this to be an acceptable and reasonable amount of risk given the benefit of avoiding an ED visit. We discussed the need to seek care urgently/emergent ly in the setting of any new or worsening serious symptoms, particularly fever chills Not available 08/27/2024 11:03:49 09/24/2024 09/24/2024 I have reviewed and agree with the assessment and plan as documented by the treatment plant mechanic. I provided real time medical direction for this encounter and was immediately available to provide additional phone based assistance as needed. History as noted by treatment plant mechanic. Pt with history of asthma, gout, HTN, diverticulitis and LUTS/probable BPH. Pt with multiple complaints today: -Bilateral lower abdominal cramping pain intermittently x >1 year -Urinary frequency x 2 weeks with no dysuria or hematuria -Bilateral lower back pain for several months -Rectal pressure x1-2 weeks Pt reports history of prostatitis and diverticulitis in past. Pt was seen in the ED Oct 2023 with lower abdominal pain and urinary frequency and labs, urinalysis and CTAP were unremarkable at that time other than the CT showing diverticulosis. Currently pt denies any fevers, vomiting, diarrhea, constipation or decreased appetite. He notes occasional radiatio of back pain into his legs but no leg weakness or numbness. On exam, pt appears comfortable. Pt's BP mildly elevated, HR 48. Abdomen soft and non tender. Neuro exam and gait normal. Urine dip negative for UTI. Urine culture sent to [facility]. Impression: Pt with multiple chronic complaints as noted, including prior intermittent episodes of urinary frequency, and lower abdominal and back pain. His recent rectal pressure may be related to BPH. Doubt prostatitis. Pt's evaluation today is unremarkable and exam is non focal. Urinalysis is negative for UTI but UCx is sent and pending. Discussed with pt that he will need close follow up with his PCP and may need repeat abdominal imaging for further evaluation. Also suspect that pt may have BPH. Pt reports he has a f/u appt with his PCP arranged already this coming week in 4 days. He will keep this appointment as scheduled. Pt instructed to seek medical attention right away with any worsening or new symptoms, which are reviewed with him. To primary care team: Follow up UCx results this week. Consider urology referral for evaluation of LUTS and probable BPH as well as repeat abdominal imaging. [email or web address] Not available 09/24/2024 13:48:37 Plan of Treatment Reminders Order Date Submit Date Provider Last Modified By Organization Details Last Modified Time Details Appointments None recorded. Lab rapid SARS CoV 2 Ag, QL IA, respiratory specimen [email or web address] [place] [address], [address] [place] [address], [phone], 3 14:18:42 culture, urine 2023 024 [facility], [address] [facility], [place], [address], 4 12:06:46 urinalysis, dipstick 2023 024 [facility], [address] [place], [phone], 4 08:16:47 culture, urine 2023 024 [facility], [address] [facility], [place], [address], 4 10:06:25 urinalysis, dipstick 2023 024 JO[facility], [address] [place] [address], [phone], 4 13:53:56 urinalysis, dipstick 2023 024 [email or web address], [address] [place] [address], [phone], 4 13:27:17 culture, urine 2023 024 [facility], [address] [place], [address], 4 10:05:54 Referral None recorded. Procedures None recorded. Surgeries None recorded. Imaging None recorded. Medication Orders codeine 10 mg-guaifene sin 100 mg/5 mL oral liquid 2022 023 [email or web address] [id number], [address] [place], [place], [phone], 3 14:17:47 Patient TargetsNo targets recorded. Patient InstructionsNo instructions recorded. Reason for Referral None Reported. Results Created Date Observation Date Name Description Value Unit Range Abnormal Flag Note LastModifiedBy Organization Detail LastModifiedTime 10/01/20 23 10/01/2023 rapid SARS CoV 2 Ag, QL IA, respi rator y speci men rapid SARS CoV 2 Ag, QL IA, respiratory specimen negati ve Not Available [facility] [address] [place] [address], [phone], 10/01/2023 14:18:22 06/30/20 24 07/02/2024 URINE CULTU RE,CO MPREH ENSIV E urine culture,comp rehensive Final report Not Available [facility] ([facility]) [address] [facility], [place], [address], 07/02/2024 12:06:46 06/30/20 24 07/02/2024 URINE CULTU RE,CO MPREH ENSIV E result 1 COMMEN T Mixed uroge nital minda 25,00 0-50, 000 colon y formi ng units per mL Not Available [facility] ([facility]) [address] [place], [address], 07/02/2024 12:06:46 07/27/20 24 07/29/2024 URINE CULTU RE,CO MPREH ENSIV E urine culture,comp rehensive Final report Not Available [facility] ([facility]) [address] [facility], [place], [address], 07/29/2024 10:06:21 07/27/20 24 07/29/2024 URINE CULTU RE,CO MPREH ENSIV E result 1 COMMEN T Mixed uroge nital minda 10,00 0-25, 000 colon y formi ng units per mL Not Available [facility] ([facility]) [address] [facility], [place], [address], 07/29/2024 10:06:21 08/27/20 24 08/31/2024 URINE CULTU RE,CO MPREH ENSIV E urine culture,comp rehensive Final report Not Available [facility] ([facility]) [address] [place], [address], 08/31/2024 10:06:25 08/27/20 24 08/31/2024 URINE CULTU RE,CO MPREH ENSIV E result 1 COMMEN T No growt h in 36 - 48 hours . Not Available [facility] ([facility]) [address] [facility], [place], [address], 08/31/2024 10:06:25 09/24/20 24 09/26/2024 URINE CULTU RE, ROUTI NE urine culture, routine Final report Not Available [facility] ([facility]) [address] [facility], [place], [address], 09/26/2024 10:05:54 09/24/20 24 09/26/2024 URINE CULTU RE, ROUTI NE result 1 No growth Not Available [facility] ([facility]) [address] [facility], [place], [address], 09/26/2024 10:05:54 09/24/20 24 09/24/2024 urina lysis , dipst ick Leukocytes negati ve Not Available [facility] ed [address] [place] [address], [phone], 09/24/2024 13:22:30 09/24/20 24 09/24/2024 urina lysis , dipst ick Nitrite negati ve Not Available [facility] ed [address] [place] [address], [phone], 09/24/2024 13:22:30 09/24/20 24 09/24/2024 urina lysis , dipst ick Blood negati ve Not Available [facility] ed [address] [place] [address], [address], 09/24/2024 13:22:30 09/24/20 24 09/24/2024 urina lysis , dipst ick Glucose negati ve Not Available [facility] ed [address] [place] [address], [phone], 09/24/2024 13:22:30 Result Notes None recorded. Medical Equipment None Reported. Allergies Allergen ID Allergen Name Allergen Category Reaction Reaction Severity Criticality Documentation Date Start Date Code Code System Note Provider Name and Address Organization Details Recorded Time 5877 morphine medicatio n Not available Not available Not available 06/30/2024 7052 RxNorm Not Available [facility] 4 03:33:19 5878 Bactrim medicatio n Not available Not available Not available 06/30/2024 64076 9 RxNorm Not Available [facility] 4 03:33:19 Medications Name Sig Start Date Stop Date Status Note LastModified by Organization Details LastModified Time doxycycline hyclate 100 mg capsule TAKE 1 CAPSULE BY MOUTH TWICE DAILY FOR 7 DAYS active Not Available Not Available No t Available ketoconazole 2 % shampoo APPLY TO SCALP 10 MINUTES PRIOR TO SHOWERING THEN LATHER AND RINSE 2 TO 3 TIMES A WEEK active Not Available Not Available No t Available oxybutynin chloride ER 10 mg tablet,extend ed release 24 hr TAKE 1 TABLET BY MOUTH DAILY active Not Available Not Available No t Available azithromycin 250 mg tablet TAKE 1 TABLET BY MOUTH DAILY active Not Available Not Available No t Available miconazole nitrate 2 % topical cream APPLY TO THE AFFECTED AREA TWICE DAILY active Not Available Not Available No t Available senna 8.6 mg tablet TAKE 2 TABLETS BY MOUTH DAILY FOR 30 DAYS active Not Available Not Available No t Available ondansetron HCl 4 mg tablet TAKE 1 TABLET BY MOUTH DAILY NEEDED FOR VOMITING active Not Available Not Available No t Available amlodipine 5 mg tablet TAKE 2 TABLETS BY MOUTH DAILY active Not Available Not Available No t Available allopurinol 100 mg tablet TAKE 2 TABLETS BY MOUTH DAILY active Not Available Not Available No t Available peg-electroly te solution 420 gram oral solution DRINK 1 HALF THE NIGHT BEFORE THE PROCEDURE AT 5 PM AND DRINK SECOND HALF 6 HOURS PRIOR TO PROCEDURE active Not Available Not Available No t Available amoxicillin 500 mg tablet TAKE 1 TABLET BY MOUTH THREE TIMES DAILY FOR 7 DAYS active Not Available Not Available No t Available carbamazepine ER 400 mg tablet,extend ed release,12 hr TAKE 1 TABLET BY MOUTH TWICE DAILY WITH MEALS. REPLACES 100 MG CAPSULE active Not Available Not Available No t Available cefadroxil 500 mg capsule TAKE 1 CAPSULE BY MOUTH TWICE DAILY FOR 7 DAYS active Not Available Not Available No t Available alprazolam 0.25 mg tablet TAKE 1 TABLET BY MOUTH DAILY AT BEDTIME NEEDED FOR ANXIETY active Not Available Not Available No t Available pravastatin 10 mg tablet TAKE 1 TABLET BY MOUTH DAILY active Not Available Not Available No t Available oxycodone-franchesca taminophen 10 mg-325 mg tablet TAKE 1 TABLET BY MOUTH EVERY 4 HOURS NEEDED FOR SEVERE PAIN. MAXIMUM 5 PER DAY active Not Available Not Available No t Available tamsulosin 0.4 mg capsule TAKE 1 CAPSULE BY MOUTH EVERY EVENING DIRECTED active Not Available Not Available No t Available fluvoxamine 100 mg tablet TAKE 1 TABLET BY MOUTH TWICE DAILY FOR 7 DAYS active Not Available Not Available No t Available cephalexin 500 mg capsule TAKE 1 CAPSULE BY MOUTH TWICE DAILY FOR 7 DAYS active Not Available Not Available No t Available oseltamivir 75 mg capsule TAKE 1 CAPSULE BY MOUTH TWICE DAILY FOR 5 DAYS active Not Available Not Available No t Available diclofenac sodium 75 mg tablet,delaye d release active Not Available Not Available No t Available montelukast 10 mg tablet TAKE 1 TABLET BY MOUTH DAILY IN THE EVENING FOR ALLERGIES active Not Available Not Available No t Available codeine 10 mg-guaifenesi n 100 mg/5 mL oral liquid Take 10 mL every day by oral route at bedtime for 5 days. 2022 active Not Available Not Available Not Avai lable allopurinol 300 mg tablet TAKE 1 TABLET BY MOUTH DAILY active Not Available Not Available No t Available pravastatin 20 mg tablet TAKE 1 TABLET BY MOUTH DAILY. REPLACES 10 MG active Not Available Not Available No t Available hydrochloroth iazide 25 mg tablet TAKE 1 TABLET BY MOUTH DAILY active Not Available Not Available No t Available clobetasol 0.05 % topical ointment active Not Available Not Available Not Available hydromorphone 4 mg tablet active Not Available Not Available Not Available betamethasone dipropionate 0.05 % topical ointment active Not Available Not Available Not Available losartan 100 mg tablet TAKE 1 TABLET BY MOUTH DAILY active Not Available Not Available No t Available fluticasone propionate 50 mcg/actuation nasal spray,suspens ion SHAKE LIQUID AND USE 1 SPRAY IN EACH NOSTRIL TWICE DAILY active Not Available Not Available No t Available betamethasone dipropionate 0.05 % lotion APPLY TO THE AFFECTED AREA ON SCALP TWICE DAILY FOR 2 WEEKS THEN STOP FOR 1 WEEK AND REPEAT active Not Available Not Available N ot Available Ventolin HFA 90 mcg/actuation aerosol inhaler INHALE 2 PUFFS BY MOUTH EVERY 4 HOURS NEEDED FOR WHEEZING active Not Available Not Available No t Available calcipotriene 0.005 % topical ointment APPLY TO THE AFFECTED AREA ON ARMS AND LEGS TWICE DAILY active Not Available Not Available No t Available azithromycin 500 mg tablet Take 500 mg by oral route. 2022 active Not Available Not Available Not Avai lable solifenacin 10 mg tablet TAKE 1 TABLET BY MOUTH EVERY DAY active Not Available Not Available No t Available sildenafil (pulmonary hypertension) 20 mg tablet TAKE UP TO 5 TABLETS BY MOUTH 30 MINUTES BEFORE A MEAL AND 1 TO 2 HOURS BEFORE DESIRED RELATIONS active Not Available Not Available No t Available diclofenac 1 % topical gel APPLY TO KNEES FOUR TIMES DAILY. NOT TO EXCEED 32 GRAMS PER DAY active Not Available Not Available No t Available Myrbetriq 25 mg tablet,extend ed release TAKE 1 TABLET BY MOUTH EVERY NIGHT AT BEDTIME active Not Available Not Available No t Available Wixela Inhub 250 mcg-50 mcg/dose powder for inhalation INHALE 1 PUFF BY MOUTH TWICE DAILY active Not Available Not Available No t Available Wixela Inhub 500 mcg-50 mcg/dose powder for inhalation INHALE 1 PUFF BY MOUTH TWICE DAILY active Not Available Not Available No t Available [employer] COVID-19 Ag Self Test kit TEST DIRECTED TODAY active Not Available Not Available No t Available Vitals Date Recorded Oxygen saturation Oxygen saturation in Arterial blood by Pulse oximetry Respiratory rate Heart rate Body weight Body temperature Systolic blood pressure Diastolic blood pressure Provider Name and Address Organization Details Last Updated DateTime 3 98 % 98 % 18 /min 86 /min 754145. 752 g 97.8 [degF] 158 mm[Hg] 76 mm[Hg] Not Available [facility] [employer] 3 13:29:45 Date Recorded Heart rate Respiratory rate Body temperature Oxygen saturation Oxygen saturation in Arterial blood by Pulse oximetry Systolic blood pressure Diastolic blood pressure Provider Name and Address Organization Details Last Updated DateTime 3 60 /min 16 /min 96.2 [degF] 99 % 99 % 193 mm[Hg] 99 mm[Hg] Not Available [facility] [facility] [employer] 3 21:56:30 Date Recorded Body temperature Body weight Respiratory rate Heart rate Oxygen saturation Oxygen saturation in Arterial blood by Pulse oximetry Systolic blood pressure Diastolic blood pressure Provider Name and Address Organization Details Last Updated DateTime 4 98.2 [degF] 64279.7 2 g 16 /min 64 /min 98 % 98 % 162 mm[Hg] 64 mm[Hg] Not Available [employer] [employer] 4 19:44:22 Date Recorded Oxygen saturation Oxygen saturation in Arterial blood by Pulse oximetry Body height Heart rate Body weight Respiratory rate Body temperature Systolic blood pressure Diastolic blood pressure Provider Name and Address Organization Details Last Updated DateTime 4 98 % 98 % 177.8 cm 60 /min 50090.6 48 g 16 /min 98.6 [degF] 128 mm[Hg] 80 mm[Hg] Not Available [facility] 4 11:00:15 Date Recorded Body temperature Respiratory rate Heart rate Oxygen saturation Oxygen saturation in Arterial blood by Pulse oximetry Systolic blood pressure Diastolic blood pressure Provider Name and Address Organization Details Last Updated DateTime 4 98 [degF] 16 /min 48 /min 98 % 98 % 161 mm[Hg] 88 mm[Hg] Not Available [facility] 4 13:19:41 Social History None recorded. Functional Status None recorded. Mental Status None recorded. Family History Nothing Reported. Medical History No medical history recorded. Past Encounters Encounter ID Performer Location Encounter Start Date Encounter Closed Date Diagnosis/Indication Diagnosis SNOMED-CT Code Diagnosis ICD10 Code Diagnosis Note [id number] Avani Casiano MD [facility] [address] [place] [phone] 01/22/2022 11:30:03 07/04/2022 14:47:30 Cellulitis of right lower limb [id number] L03.115 [id number] Abdelrahman Weiss MD [facility] [address] [place] [id number] 0 08/15/2022 20:10:05 08/19/2022 15:39:03 Essential hypertension [id number] I10 [id number] New Chu MD [facility] [address] [place] [address] [id number] 10/20/2022 12:59:12 10/22/2022 10:53:26 Influenza A virus present [id number] 08 J09.X2 This 57-year-ol d male was recently diagnosed with influenza and is taking Tamiflu. For the past several days he has had a cough productive of yellow sputum. I recommende d that he continue the Tamiflu and contact his PCP if his symptoms persist or worsen for a possible chest x-ray. The patient agreed with this plan. [id number] Abdelrahman Weiss MD [facility] [address] [place] [address] [phone] 0 01/19/2023 12:03:46 01/21/2023 09:36:34 Community acquired pneumonia 961271985 J18.9 Cellulitis of left lower limb [id number] L03.116 [id number] Mary Argueta MD [facility] [address] [place] [address] [phone] 10/01/2023 13:29:43 10/01/2023 14:19:30 Upper respiratory infection [id number] J06.9 [id number] Tiffanie Dawkins MD [facility] [address] [place] [address] [phone] 0 10/03/2023 21:56:28 10/04/2023 15:52:20 Cough 22474957 R05.9 [id number] RADHA SALDIVAR MD [facility] [address] [place] [address] [phone] 0 06/30/2024 19:44:20 07/01/2024 13:01:40 Dysuria 33257318 R30.0 Evaluation in the field was performed by my treatment plant mechanic colleague, as noted above, I provided real-time direction and supervisio n for this visit. The evaluation revealed 58 yo male with complains frequent urination, dysuria, and lower leg edema, all of which have resolved today. However, he requested a visit with us per his PCP's recommenda tion since they could not accommodat e him for a clinic visit. The patient denies fever, chills, chest pain , shortness of breath , nausea, vomiting, and flank pain. VSS. AfebrileEx am with no abdominal tenderness or CVA tenderness . No Matthias discussion with the treatment plant mechanic, the urinalysis (UA) was unremarkab le, showing no leukocytes , ketones, or blood. The urine was yellow in color; however, no picture was uploaded, as the treatment plant mechanic discarded it prior to entering it in the chart. Impression :Dysuria that has resolved. Plan:-A urine culture was sent to [facility]. Results will be followed, and if positive, treatment will be initiated accordingl y.-The patient was advised to drink plenty of fluids.-Re d flags were discussed with the patient. Primary care, consider__ _ Dispositio n: We discussed the diagnostic uncertaint y of home visits and the risk associated with this. In this case, the patient and I felt this to be an acceptable and reasonable amount of risk given the benefit of avoiding an ED visit. We discussed the need to seek care urgently/e mergently in the setting of any new or worsening serious symptoms, particular ly fever, chills, CP, SOB, nausea, vomiting, worsening pain with urination , lower extremity edema or any other concerns. [id number] Tiffanie Dawkins MD [facility] [address] [place] [address] [phone] 0 08/27/2024 11:00:09 08/27/2024 17:48:46 Urinary symptoms [id number] R39.9 [id number] Abdelrahman Weiss MD [facility] [address] [place] [address] [phone] 0 09/24/2024 13:19:35 09/24/2024 16:00:17 Increased frequency of urination 773580105 R35.0 Health Concerns Section Related Observation LastModified by Organization Detai ls LastModified Time None Recorded Concern Status LastModified by Organization Details LastModified Time None Recorded Advance Directives Directive None Recorded Payers Encounter Date Sequence Insurance Name Policy Number Policy Felix Covered Member ID Felix Member ID Guarantor Name 10/01/2023 1 [facility] [employer] - DOS ON OR AFTER 2023 - DUAL ELIGIBLE - LONG-TERM OPTIONS AND ONE CARE (MEDICARE REPLACEMENT/AD VANTAGE - HMO) Oleksandr Mckeon [id number] Oleksandr Mckeon 10/03/2023 1 [facility] [employer] - DOS ON OR AFTER 2023 - DUAL ELIGIBLE - LONG-TERM OPTIONS AND ONE CARE (MEDICARE REPLACEMENT/AD VANTAGE - HMO) Oleksandr Mckeon [id number] Oleksandr Mckeon 06/30/2024 1 [facility] [employer] - DOS ON OR AFTER 2023 - DUAL ELIGIBLE - LONG-TERM OPTIONS AND ONE CARE (MEDICARE REPLACEMENT/AD VANTAGE - HMO) Oleksandr Mckeon [id number] Oleksandr Mckeon 08/27/2024 1 [facility] [employer] - DOS ON OR AFTER 2023 - DUAL ELIGIBLE - LONG-TERM OPTIONS AND ONE CARE (MEDICARE REPLACEMENT/AD VANTAGE - HMO) Oleksandr Mckeon [id number] Oleksandr Mckeon 09/24/2024 1 [facility] [employer] - DOS ON OR AFTER 2023 - DUAL ELIGIBLE - LONG-TERM OPTIONS AND ONE CARE (MEDICARE REPLACEMENT/AD VANTAGE - HMO) Oleksandr Mckeon [id number] Oleksandr Mckeon Notes Date Note Type Note Provider Name and Address Organization Details Recorded Time 10/01/2023 text/html [facility] Nursing Assessment: Chief Complaints: Cough PMH: Diabetes, COPD/Asthma Allergies: Morphine Comments: Member reports cold s/s since Thursday - Cough/congestion/SOB - Denies fever and sore throat - Denies Body aches - Denies N/V - Lisbeth GILL .................... .................... .................... .................... .................... .................... .................... . Global Professional Note From Chandler Blair: Pt co productive cough with nasal congestion for 4 days COVID neg. Pt took guaifenesin last evening with much relief this morning as he states he coughed a lot out this morning but is now feeling better and best he has felt all week. Pt denies SOB CP fever diarrhea vomiting or nausea. [facility] contacted and Guafenesin called into RX. Pt advised to follow up with pcp. Global Professional Allergies: Morphine .................... .................... .................... .................... .................... .................... .................... . Disposition: Fulfilled Mary Arugeta MD [address] [facility],[address], [place], [address], [employer] 10/01/2023 14:19:27 10/03/2023 text/html [facility] Nursing Assessment: Chief Complaints: Cough PMH: Diabetes, COPD/Asthma Allergies: Morphine Comments: Coughing for the past 4 days. Cough not improving. c/o head pressure. Taking Dayquil and Nyquil with no relief. No shortness of breath. Would like to be re-evaluated to consider starting antibiotics. .................... .................... .................... .................... .................... .................... .................... . Global Professional Note From Percy Nix: [facility] 3 arrives to find 58-year-old male seated on couch. Patient reports one week of cough and congestion. Patient was visited on Thursday through [facility] and was advised that this was likely a viral sickness. Patient states he was supposed to have been prescribed guaifenesin with codeine by [facility] at that time, but the prescription was not sent to pharmacy. Patient has been taking DayQuil and NyQuil with minimal relief. Patient states the cough gets worse at night, and when he wakes up in the morning. Patient reports white mucus produced through cough. Patient is now reporting that the symptoms have not changed, nor have they worsened. Patient is requesting follow up evaluation for potential antibiotic therapy. Vital signs taken as noted. Lung sounds clear and equal both sides. [facility] consulted, patient is advised to continue with DayQuil and NyQuil and follow up with primary care when possible. [facility] states guaifenesin and codeine is not prescribable through [facility] and antibiotics are not advised for this particular illness. [facility] 3 clear. Global Professional Allergies: Morphine .................... .................... .................... .................... .................... .................... .................... . Disposition: Fulfilled Tiffanie Dawkins MD [address] [facility],[address], [place], [phone], [facility] [employer] 10/03/2023 21:59:14 06/30/2024 text/html [facility] Nurse Triage Notes (Sim Bhatia): Reason For Request: Patient possible UTI, - Lots of Urine, and stomach pain. Chief Complaints: Edema, UTI/Pyelonephritis PMH: Diabetes, COPD/Asthma Allergies: Morphine, Bactrim Comments: Variety Lathe Operator verified the member's name//address and phone number. Mbr calling c/o pain with urination, pain in lower abdomen and back. Mbr also reports increased urination since Thursday. Mbr reports some SOB and bilateral lower extremity edema. Mbr reports symptoms seem to be improved today but reports PCP wanted mbr evaluated and did not have appt for him today. Mbr denies hx of CHF. Education provided on the response time and the member was advised to monitor reported s/s and seek emergency treatment if needed -Ankit Bhatia RN Global Professional Organization Information for Chandler Blair Business Legal Name: [facility] Transportation Address: [address] [place] [address], Medical Health Researcher: Mikey Reyes MD ENRIQUE No.: [id number] Global Professional POC Test Results from [facility]and[facility] [employer] [facility] Urine Dipstick (20:53:10) Urine leukocytes: NR Urine nitrites: NR Urine urobilinogen: NR Urine protein: NR Urine pH: 5 pH Urine blood: NR Urine specific gravity: NR Urine ketones: NR Urine bilirubin: NR Urine glucose: NR .................... .................... .................... .................... .................... .................... .................... . Global Professional Note From Chandler Blair: Pt co sob and edema a few days ago but has since been relieved. Pt sts had some back pain and thought he had a uti due to frequently urinating. Pt sts that has also since been relieved. Pt denies cp sob abdominal pain, painful urination, fevers, NVd. Baseline vitals assessed, afebrile. Urine dip unremarkable. Urine clear and yellow in color. No edema present , lungs clear bilaterally. Pt sts is feeling better today. [facility] contacted and urine culture to lab mary. pt advised to follow up with pcp. Pt education on signs indicating the ER. [facility] Lab Orders: culture, urine: Performed Comment: lab mary sent [employer] Professional Allergies: Morphine, Bactrim .................... .................... .................... .................... .................... .................... .................... . Disposition: Fulfilled RADHA SALDIVAR MD [address] [facility],[address], [place], [address], [employer] 06/30/2024 22:59:08 08/27/2024 text/html [facility] Nurse Triage Notes (Yobany Severino): Reason For Request: Pt reporting suspected UTI, odor with urine, pain in his lower back and belly, slight nausea Chief Complaints: UTI/Pyelonephritis PMH: Diabetes, COPD/Asthma Allergies: Morphine, Bactrim Other Allergies: Karin, [place] and red dye Comments: Variety Lathe Operator verified the Pt.'s name//address and phone number. Education provided on the response time and the Pt. was advised to monitor reported s/s and seek emergency treatment if needed. HPI: Diabetes, Asthma, Postprocedural hypertension, ? G out, ? E andrzej extremities, History of ETOH abuseHistory of GI bleed.Pt reports feeling unwell with UTI symptoms - Lower back pain - bladder pain - Increased urination - Urine is cloudy with an odor - Chills and nausea - Fatigue - S/S x 2 weeks. Global Professional Organization Information for Lenin Vargas - [facility] [employer] Legal Name: [employer]? Address: [address] [place] [address], Medical Health Researcher: Anish GUZMAN No.: [id number] Global Professional POC Test Results from Vargas Phelps - [facility] Urine Dipstick (10:16:41) Urine leukocytes: - KADIE Urine nitrites: - NIT Urine urobilinogen: 0.2 URO Urine protein: - PRO Urine pH: 7.5 pH Urine blood: - BLO Urine specific gravity: 1.000 SG Urine ketones: - KET Urine bilirubin: - DANETTE Urine glucose: - GLU Attachments uploaded as part of this test result can be found under Documents section. .................... .................... .................... .................... .................... .................... .................... . Global Professional Note From Vargas Phelps: [facility] makes pt contact, 58 YO M CC of UTI like symptoms.[facility] obtains vital signs and a ten panel UA, as well as a urine sample for the lab. PT explains for weeks hes had off and on lower back pain and flank pain. PT notes cloudy urine and foul smells. PT reports a while ago he had an MRI/Ultrasound where they stated he had very small kidney stones that they told him not to worry . PT reports some nausea and chills but no vomiting. Notes SOB no chest pain. PT currently has gout flare ups that he takes medication for. PT allergies noted as sulfa, caffeine, red/pink dye, morphine, and karin. With signifcant adverse reactions from bactrim.[facility] contacts [facility] and explains above mentioned. [facility] recommends we wait for the lab order to process to see the results and depending on the culture can treat accordingly. PT advised that if pain gets severe, develops a fever, n/v, or severe SOB to go to the ED.Report written by [place] [facility] Carlos Elias [id number] .................... .................... .................... .................... .................... .................... .................... . Disposition: Fulfilled Tiffanie Dawkins MD [address] [place] [address],[address], [place], [phone], [employer] 08/27/2024 11:04:19 09/24/2024 text/html This was a supervised home visit with treatment plant mechanic Davdi Gibbs. [facility] Nurse Triage Notes (Yobany Severino): Reason For Request: Pt reporting high BP and feeling weak, unsure what is going since around noon time>pt notes seeing his management supervisor this morning where reading was around 110/84 (*mbr is unsure exactly on bottom number) Chief Complaints: Weakness PMH: COPD/Asthma, Gout Comments: Variety Lathe Operator verified the Pt.'s name//address and phone number. Education provided on the response time and the Pt. was advised to monitor reported s/s and seek emergency treatment if needed. Pt reports feeling weakness - Blood glucose fluctuations - POC 62 - repeat POC was 117 - Denies CP and SOB - Chills - Pt reports he was seen by his management supervisor today and b/p was 110/84 = Pt is requesting a wellness check. Global Professional Organization Information for David Gibbs [employer] Legal Name: [employer]? Address: [address] [place] [address], Medical Health Researcher: Anish Swanson MD [facility] No.: [id number] Global Professional POC Test Results from David Gibbs Urine Dipstick (13:54:05) Urine leukocytes: - KADIE Urine nitrites: - NIT Urine urobilinogen: normal URO Urine protein: 300 PRO Urine pH: 7.0 pH Urine blood: - BLO Urine specific gravity: 1.000 SG Urine ketones: - KET Urine bilirubin: - DANETTE Urine glucose: - GLU .................... .................... .................... .................... .................... .................... .................... . Global Professional Note From David Gibbs: Dispatched to a scheduled visit for a patient with urinary symptoms. pt. was found alert and oriented x3 sitting in living room. pt. noted he had not felt well yesterday and noticed an increase in his urine frequency over the last few days. noted his head felt strange non dizziness but had been at the management supervisor yesterday and no findings there. pt. noted abdominal cramping for months with lower back pain radiating into his kidneys for months and spasms and shooting pain bilaterally in both lower quadrants. also noted some pressure in his rectum. normal bowel movements. allergy to sulfa and morphine. [facility]pt. vitals assessed on scene. pt. -chest pain -sob -dizziness -nausea -diarrhea -vomiting -weakness -neck pain -headache -blurred vision normal ambulation. pt. assessment airway open and patent breathing non labored circulation +radial pulse -heent abnormalities -jvd -tracheal deviation +and= chest rise and fall abd soft and non tender pelvis in tact +cms in all extremities -dcapbtls -stroke scale findings. [facility] ordered U/A with culture at this time and noted patient should follow up with PCP and he would make a note to refer an abdominal CT. U/A negative for signs of UTI. red flag warnings discussed and advised to call 911 if any conditions worsened or any vomiting was noted.all times are approx.report completed by sayra gibbs. .................... .................... .................... .................... .................... .................... .................... . [facility] Consulted: Abdelrahman Weiss .................... .................... .................... .................... .................... .................... .................... . Disposition: Osbaldo Weiss MD [address] [facility],[address], [place], [address], [facility] [employer] 09/24/2024 14:11:41
--- OUTSIDE RECORDS SUMMARY | 2024-12-13 12:32 | XMS_ITS | Clinical Summary ---
Author Organization [facility] Address [address] [place] [address] Phone Care Team Providers Care Operator Assistant I Cementing Name Role Phone Kvng Oconnor MD Primary Care Provider [phone] Allergies Active Allergy Reactions Criticality Noted Date Comments Caffeine 02/10/2019 Morphine Hives,Itching 03/08/2018 Medications Medication Sig Dispensed Refills Start Date End Date Status ALPRAZOLAM ORAL Take by mouth. Activ e GARLIC ORAL Take by mouth. Active amlodipine besylate (AMLODIPINE ORAL) Take by mouth. Act azael polyethylene glycol (PEG) 17 gram/dose oral powder Take by mouth. Active turmeric root extract 500 mg tablet Take by mouth. Active zinc acetate 50 mg (zinc) capsule Take by mouth. Active montelukast sodium (SINGULAIR ORAL) Take by mouth. Acti ve allopurinoL (ZYLOPRIM) 100 mg tablet Take 100 mg by mouth every evening. Active aspirin 81 mg chewable tablet Take 81 mg by mouth daily. Active carBAMazepine (CARBATROL) 300 mg 12 hr capsule Take 300 mg by mouth 2 times daily. Active collagenase (SantyL) 250 unit/gram ointment APPLY TOPICALLY TO THE AFFECTED AREA DAILY 09/23/2023 Active ferrous sulfate 325 mg (65 mg iron) EC tablet Take 1 tablet (325 mg total) by mouth 1 (one) time each day. 11/15/2018 Active fluticasone propion-salmeteroL (ADVAIR DISKUS) 500-50 mcg/dose diskus inhaler Inhale 1 puff into the lungs. Active iron-vit C-vit X79-vgbjz acid 230-344-68-1 xe-xt-mwb-mg tablet Take 1 tablet by mouth 1 (one) time each day. 01/13/2019 Active losartan (COZAAR) 100 mg tablet Take 1 tablet (100 mg total) by mouth 1 (one) time each day. 07/31/2023 Active naloxone (NARCAN) 4 mg/0.1 mL nasal spray spray or apply 4 mg inside Nose. 06/19/2018 Active oxyCODONE (ROXICODONE) 10 mg immediate release tablet Take 10 mg by mouth 5 times daily. 2morning, 2 noon, 1 bedtime Active oxyCODONE-acetaminoph en (PERCOCET) 10-325 mg per tablet 10/15/2023 Active pravastatin (PRAVACHOL) 10 mg tablet Take 10 mg by mouth daily. Active promethazine (PHENERGAN) 12.5 mg tablet Take 1 Tablet by mouth every 6 hours as needed for Nausea for up to 7 days. 12/14/2023 Active Active Problems Problem Noted Date Diagnosed Date Sleep apnea 10/22/2024 Asthma 10/22/2024 Diabetes mellitus 10/22/2024 Esophageal reflux 10/22/2024 Gout 10/22/2024 Hypertension 10/22/2024 Neuropathy 10/22/2024 Pannus, abdominal 10/25/2019 Class 2 severe obesity due t o excess calories with serious comorbidity and body mass index (BMI) of 37.0 to 37.9 in adult 05/05/2019 Intestinal malabsorption following gastrectomy 0 02/10/2019 Iron deficiency 02/10/2019 Immunizations Name Administration Dates Next Due IntraStage (ages 12 & older) MARKUS S-CoV-2 COVID-19, mRNA, LNP-S, rigo-sucrose, preservative free 05/05/2022 Pfizer SARS-CoV-2 COVID-19, mRNA, LNP-S, preservative free 02/19/2021,01/29/2021 Surgical History Surgery Date Site/Laterality Comments KNEE SURGERY PROCEDURE: HISTORICAL KNEE SURGERY Medical History Medical History Date Comments Gout DX:Gout Neuropathy DX:Neuropathy Diabetes mellitus (CMS/HCC) DX:D iabetes mellitus (HCC) Hypertension DX:Hypertension Asthma DX:Asthma Esophageal reflux DX:Esophageal reflux Sleep apnea DX:Sleep apnea Family History Medical History Relation Name Comments Parkinson's Disease Father Other: pancreatic disease Mother Relation Name Status Comments Father Mother Social History Tobacco Use Types Packs/Day Years Used Date Smoking Tobacco: Former Smokeless Tobacco: Never Alcohol Use Standard Drinks/Week Comments No 0 (1 standard drink = 0.6 oz pur e alcohol) Sex and Gender Information Value Date Recorded Sex Assigned at Not on file Gender Identity Not on file Sexual Orientation Not on file Obstetrics History Last Filed Vital Signs Vital Sign Reading Time Taken Comments Blood Pressure 146/77 01/21/2024 2:09 PM EST Pulse 56 01/21/2024 2:09 PM EST Temperature - - Respiratory Rate - - Oxygen Saturation - - Inhaled Oxygen Concentration - - Weight 107 kg (235 lb 1.3 oz) 01/21/2024 2:09 PM EST Height 174 cm (5' 8.5 ) 01/21/2024 2:09 PM EST Body Mass Index 35.22 01/21/2024 2:09 PM EST Plan of Treatment Upcoming Encounters Date Type Department Care Team (Latest Contact Info) Description 01/19/2025 2:15 PM EST Office Visit Bariatric Surgery - [place] [address] [phone] Nitish Hawkins MD [address] [address] 03/01/2025 7:30 AM EDT Hospital Encounter [facility] [address] [place] [phone] Hank Fernandez MD [address] [phone] 03/01/2025 7:30 AM EDT - 03/01/2025 9:00 AM EDT Surgery [facility] OR [address] [place] [phone] Hank Fernandez MD [address] [phone] urolift [[id number] (CPT??)] Scheduled Procedures Name Priority Associated Diagnoses Date/Ti me CYSTOSCOPY PROSTATIC URETHRAL LIFT Benign prostatic hyperplasia with lower urinary tract symptoms 03/01/2025 7:30 AM EDT Health Maintenance Due Date Last Done Comments Diabetes: Annual Foot Exam 1974 Diabetes: Annual Retina Eye Exam 1974 Pneumococcal Vaccine: Pediatrics (0 to 5 Years) and At-Risk Patients (6 to 64 Years) (2 of 2 - PCV) 07/28/2008 07/28/2007 Zoster Vaccines (1 of 2) 2014 Cholesterol Screening (Lipid Panel) 12/16/2023 Depression Screening 12/16/2023 Diabetes: Annual Urine Albumin-Creatinine Ratio (uACR) 12/16/2023 Diabetes: Blood Sugar Control Test (HGBA1C) 12/16/2023 HIV Screening 12/16/2023 Hepatitis C Screening 12/16/2023 Medicare Annual Wellness Visit 12/16/2023 Social Influencers of Health Screening 12/16/2023 COVID-19 Vaccine ( season) 2024 05/05/2022, 02/19/2021, 01/29/2021 Influenza Vaccine (#1) 2024 6, 09/04/2015, 10/13/2014, Additional history exists RSV Immunization Patients 60+ Years Old (1 - Risk 60-74 years 1-dose series) 2024 Diabetes: Annual GFR (Glomerular Filtration Rate) 11/07/2024 11/07/2023, 11/07/2023, 10/29/2023 Hypertension/CHF/CAD Annual BMP Blood Test 11/07/2024 11/07/2023, 11/07/2023, 10/29/2023 Colorectal Cancer Screening: FIT-DNA (Cologuard) 10/07/2026 10/07/2023, 10/07/2023 DTaP,Tdap,and Td Vaccines (3 - Td or Tdap) 04/19/2031 04/19/2021, 07/23/2010 Hepatitis B Vaccines Completed 02/24/2017, 04/01/2016, 09/04/2015 HIB Vaccines Aged Out No longer eligi ble based on patient's age to complete this topic HPV Vaccines Aged Out No longer eligi ble based on patient's age to complete this topic Hepatitis A Vaccines Aged Out No long er eligible based on patient's age to complete this topic IPV Vaccines Aged Out No longer eligi ble based on patient's age to complete this topic MMR Vaccines Aged Out No longer eligi ble based on patient's age to complete this topic Meningococcal ACWY Vaccine Aged Out N o longer eligible based on patient's age to complete this topic RSV Immunization Patients Under 20 months Aged Out No longer eligible based on patient's age to complete this topic Varicella Vaccines Aged Out No longer eligible based on patient's age to complete this topic Procedures Procedure Name Priority Date/Time Associated Diagnosis Comments ANNUAL BMP BLOOD TEST Routine 11/07/2023 from Last 3 Months or Most Recently Relevant to Health Maintenance Results * Annual BMP Blood Test (11/07/2023) Annual BMP Blood Test abstracted Historical Provider MD TAYLOR Heller from Last 3 Months or Most Recently Relevant to Health Maintenance Care Teams Operator Assistant I Cementing Relationship Specialty Start Date End Date Kvng Oconnor [facility] [place] PCP - General Internal Medicine 03/04/18
--- OUTSIDE RECORDS SUMMARY | 2024-12-13 12:32 | XMS_ITS | Clinical Summary ---
Author Organization [facility] Address [address] [place] [address] Care Team Providers Care Venetian Blind Maker Name Role Phone Unavailable Primary Care Provider Unavailabl e Source Comments PLEASE NOTE, if this patient is a minor, it may be UNLAWFUL to discuss sensitive information that is contained in these records (such as FAMILY PLANNING, MENTAL HEALTH or SUBSTANCE ABUSE) with the minor patient's parent or other person without the patient's specific authorization.[facility] Medications No known medications Active Problems No known active problems Social History Tobacco Use Types Packs/Day Years Used Date Smoking Tobacco: Never Social Connections Answer Date Recorded Connectedness 0 08/03/2024 Financial Resource Strain Answer Date R ecorded Financial Resource Strain 0 2021 Stress Answer Date Recorded Stress 0 03/06/2022 Physical Activity Answer Date Recorded Physical Activity 0 03/06/2022 Food Insecurity Answer Date Recorded Food 0 08/11/2024 Transportation Needs Answer Date Record ed Transportation 0 03/06/2022 Housing Stability Answer Date Recorded Housing 0 03/06/2022 Safety and Environment Answer Date Ernie rded Safety 0 03/06/2022 Utilities Answer Date Recorded Utilities 0 03/06/2022 Employment Answer Date Recorded Stress 0 08/03/2024 Sex and Gender Information Value Date Recorded Sex Assigned at Male 03/18/2022 1:27 PM PDT Legal Sex Male 6:59 AM PST Gender Identity Male 03/18/2022 1:27 PM PDT Sexual Orientation Not on file Last Filed Vital Signs Vital Sign Reading Time Taken Comments Blood Pressure 135/88 10/31/2022 1:35 PM EST Pulse 77 10/31/2022 1:35 PM EST Temperature - - Respiratory Rate - - Oxygen Saturation - - Inhaled Oxygen Concentration - - Weight - - Height - - Body Mass Index - - Plan of Treatment Health Maintenance Due Date Last Done Comments Diabetes Screening 1964 Hepatitis C Screening 1964 Lipid Screening 1964 Tobacco Screening 1964 HIV Screening 1964 Syphilis Screening 09/20/1978 Medicare Annual Wellness Visit 1982 Imm-Hepatitis A (1 of 2 - Ri sk 2-dose series) 1983 CT Colonography 2009 Colonoscopy 2009 Colorectal Cancer Screening 2009 FIT/gFOBT 2009 Fecal DNA 2009 Flexible Sigmoidoscopy 2009 Imm-Zoster, Recombinant (1 of 2) 2014 Hypertension Screening (#1) 10/31/2023 [id number] (3 - season) 2024 021, 01/29/2021 Imm-Influenza (#1) 2024 09/23/2016, 1 , 10/13/2014, Additional history exists Alcohol and Drug Screen 11/16/2024 Depression Annual Screen 11/16/2024 Imm-DTaP/Tdap/Td (3 - Td or Tdap) 04/19/2031 021, 07/23/2010 Imm-Hepatitis B Completed 02/24/2017, 03/16, 09/04/2015 Insurance [facility]
--- OUTSIDE RECORDS SUMMARY | 2024-12-13 12:32 | XMS_ITS | Continuity of Care Document ---
Author Organization [facility], ARIADNE Segal PT Address [address] [place] [address] Care Team Providers Care Fisher Pot Name Role Phone ERYNSTACIA NICHO Primary Care Provider [phone] Assessment Encounter Date Assessment Date Assessment LastModified by Organization Details LastModified Time 11/23/2024 11/23/2024 A:Pt tolerating treatment well, able to complete full treatment without c/o increasing pain. Fatigued appropriately with initiation of strengthening/ stretching program. ROM improved from IE. Ambulating with RW with significant limp, decrease stability with WBing in R knee. Poor tolerance to end range stretching with guarding present. P:Continue with POC, progress as tolerated. [email or web address] Not available 11/23/2024 17:46:31 Plan of Treatment Reminders Order Date Submit Date Provider Last Modified By Organization Details Last Modified Time Details Appointments PT FOLLOW-U P 2024 01:00P M Zaina Stephens PTA Not available Not available Not available RECHECK 15 2024 02:30P M David Reina MD Not available Not available Not available PT FOLLOW-U P 2024 01:30P M Zaina Stephens PTA Not available Not available Not available PT FOLLOW-U P 2024 12:00P M Josy Arce DPT Not available Not available Not available PT FOLLOW-U P 2024 12:00P Hilario Arce DPT Not available Not available Not available Lab None recorded . Referral None recorded . Procedures None recorded . Surgeries None recorded . Imaging None recorded . Medication Orders None recorded . Patient TargetsNo targets recorded. Patient InstructionsNo instructions recorded. Reason for Referral None Reported. Results Created Date Observation Date Name Description Value Unit Range Abnormal Flag Note LastModifiedBy Organization Detail LastModifiedTime 11/25/19 25 11/25/2024 XR, knee, 3 view [email or web address] ?Encry pted=s hAaTro YD8dLq bEUv6g %2BXZw aYqtaq 0bqfl% 2Fg9IQ a4ajBk vP9nXo QUaueC m3YtLR FvZlgJ JJ8mAn HZtai3 0u6325 AC0Kqb 3%2BAU 6GhKiQ trMwF INTERFACE [facility] [address], [place], [address], 11/25/2024 09:57:02 11/25/19 25 11/25/2024 XR, knee, 3 view [email or web address] ?Encry pted=s hAaTro YD8dLq bEUv6g %2BXZw aYqtaq 0bqfl% 2Fg9IQ a4ajBk vP9nXo QUaueC m3YtLR FvZlgJ JJ8mAn HZtai3 9k6225 AC0Kqb 3%2BAU 6GhKiQ trMwF INTERFACE [facility] [address], [place], [address], 11/25/2024 09:57:05 Result Notes None recorded. Problems Name Problem SNOMED Code Status Onset Date Resolution Date Notes Provider Name and Address Organization Details Recorded Time No complaint s [id number] Active Status: 'I'; Not Available [facility] 4 09:11:28 Osteoarth ritis of knee 235611413 Active 2023 Hank Padilla PA-C [address], [place], [address] , 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 Procedures Surgical History Date Name Laterality Status Provider Name and Address Organization Details Recorded Time 5 63871 Therapeutic Exercise (1:1) completed Zara Casas, JAVASCRIPT FRONT END DEVELOPER [address], [place], [address], [facility] 12/08/2024 16:43:56 5 55208: Hot or Cold Pack completed Zara Casas [employer] DEVELOPER [address], [place], [address], [facility] 12/08/2024 16:43:52 5 29495: Manual therapy completed Zara Casas, JAVAS[employer] FRONT END DEVELOPER [address], [place], [address], [facility] 12/08/2024 16:44:00 5 56195 Therapeutic Exercise (1:1) completed Branden Sorto PTA [address], [place], [address], [facility] 11/30/2024 12:03:45 5 25782: Hot or Cold Pack completed Branden Sorto PTA [address], [place], [address], [facility] 12/01/2024 13:24:41 5 75350: Manual therapy completed Branden Sorto PTA [address], [place], [address], [facility] 11/30/2024 12:03:45 5 82804 Therapeutic Exercise (1:1) completed Branden Sorto PTA [address], [place], [address], [facility] 11/28/2024 14:24:53 5 10617: Hot or Cold Pack completed Branden Sorto PTA [address], [place], [address], [facility] 11/25/2024 16:21:02 5 55719: Manual therapy completed Branden Sorto PTA [address], [place], [address], [facility] 11/25/2024 16:21:02 5 26917 Therapeutic Exercise (1:1) completed Josy Arce DPT [address], [place], [address], [facility] 11/23/2024 17:45:18 5 04414: Hot or Cold Pack completed Josy Arce DPT [address], [place], [address], [facility] 11/23/2024 17:45:24 5 29930: Manual therapy completed Josy Arce DPT [address], [place], [address], [facility] 11/23/2024 17:45:09 5 76419 Therapeutic Exercise (1:1) completed Josy Arce DPT [address], [place], [address], [facility] 11/21/2024 15:50:33 5 83903: Low complexity PT Eval completed Josy Arce DPT [address], [place], [address], [facility] 11/21/2024 15:51:36 4 58677 Therapeutic Exercise (1:1) completed GREGORIO SinhaT [address], [place], [address], [facility] 10/18/2024 10:50:09 4 55829: Low complexity PT Eval completed Josy Arce, DPT [address], [place], [address], [facility] 10/18/2024 10:51:57 Imaging Results None recorded. Procedure Notes None recorded. Medical Equipment None Reported. Allergies Allergen ID Allergen Name Allergen Category Reaction Reaction Severity Criticality Documentation Date Start Date Code Code System Note Provider Name and Address Organization Details Recorded Time 734764 Substance with sulfonami de structure and antibacte rial mechanism of action (substanc e) medicatio n Not available Not available Not available 08/25/2024 38139 8003 SNOMED Dylan Eason [facility], [facility] 4 07:50:32 415490 caffeine food,medi cation headache hives itching nausea rash respirato ry distress moderate moderate severe moderate severe moderate Not available 08/25/2024 1886 RxNorm Dylan Eason [facility], [facility] 4 07:50:32 216465 karin extract food Not available Not available Not available 08/25/2024 99184 97 RxNorm Dylan Eason [facility] 4 07:50:32 900069 pink dye Not available Not available Not available Not available 08/25/2024 UNK Dylan Eason [facility] 4 07:50:32 949701 red dye food,medi cation Not available Not available Not available 08/25/2024 UNK Dylan Eason [facility], [facility] 4 07:50:32 39851 morphine sulfate medicatio n Not available Not available Not available 01/18/20242013 54909 RxNorm Not Available [facility] 4 11:09:56 Medications Name Sig Start Date Stop Date Status Note LastModified by Organization Details LastModified Time Santyl 250 unit/gram topical ointment APPLY TOPICALLY TO THE AFFECTED AREA DAILY active Not Available Not Available No t Available prednisone 10 mg tablet TAKE 6 TABLETS BY MOUTH ON DAY 1. THEN 4 TABLETS BY MOUTH ON DAY 2. THEN 2 TABLETS ON DAY 3. THEN 1 TABLET ON DAY 4 11/25 completed Not Available Not Available Not Available ketoconazol e 2 % shampoo APPLY TO SCALP 10 MINUTES PRIOR TO SHOWERING THEN LATHER AND RINSE 2 TO 3 TIMES A WEEK active Not Available Not Available No t Available senna 8.6 mg tablet TAKE 1 TABLET BY MOUTH THREE TIMES DAILY active Not Available Not Available No t Available meloxicam 15 mg tablet TAKE 1 TABLET BY MOUTH EVERY DAY active Not Available Not Available No t Available promethazin e 12.5 mg tablet TAKE 1 TABLET BY MOUTH EVERY 6 HOURS FOR UP TO 7 DAYS NEEDED FOR NAUSEA 09/06 completed Not Available Not Available Not Available FreeStyle Lancets 28 gauge USE DIRECTED TO CHECK BLOOD SUGAR THREE TIMES DAILY FOR 2 WEEKS active Not Available Not Available No t Available ondansetron HCl 4 mg tablet TAKE 1 TABLET BY MOUTH EVERY 8 HOURS NEEDED FOR NAUSEA OR VOMITING active Not Available Not Available No t Available prednisone 20 mg tablet 09/06 completed Not Available Not Available Not Available amlodipine 5 mg tablet TAKE 2 TABLETS BY MOUTH DAILY active Not Available Not Available No t Available allopurinol 100 mg tablet TAKE 2 TABLETS BY MOUTH DAILY active Not Available Not Available No t Available ciprofloxac in 500 mg tablet TAKE 1 TABLET BY MOUTH EVERY 12 HOURS FOR 10 DAYS 11/25 completed Not Available Not Available Not Available sulfamethox azole 800 mg-trimetho prim 160 mg tablet TAKE 1 TABLET BY MOUTH TWICE DAILY 11/25 completed Not Available Not Available Not Available omeprazole 40 mg capsule,del ayed release TAKE 1 CAPSULE BY MOUTH DAILY active Not Available Not Available No t Available oxycodone 15 mg tablet TAKE 1 TABLET BY MOUTH EVERY 4 TO 6 HOURS NEEDED FOR PAIN active Not Available Not Available No t Available ketorolac 0.5 % eye drops PLACE ONE DROP INTO OPERATIVE EYE TWICE DAILY STARTING 2 DAYS BEFORE SURGERY 11/25 completed Not Available Not Available Not Available carbamazepi ne ER 400 mg tablet,exte nded release,12 hr TAKE 1 TABLET BY MOUTH TWICE DAILY WITH MEALS. REPLACES 100 MG CAPSULE active Not Available Not Available No t Available alprazolam 0.25 mg tablet TAKE 1 TABLET BY MOUTH DAILY AT BEDTIME NEEDED FOR ANXIETY active Not Available Not Available No t Available aspirin 325 mg tablet,terese yed release TAKE 1 TABLET BY MOUTH TWO TIMES A DAY active Not Available Not Available No t Available oxycodone-a cetaminophe n 10 mg-325 mg tablet TAKE 1 TABLET BY MOUTH EVERY 4 HOURS NEEDED FOR SEVERE PAIN. MAXIMUM 5 PER DAY active Not Available Not Available No t Available tamsulosin 0.4 mg capsule TAKE 1 CAPSULE BY MOUTH IN THE EVENING 11/25 completed Not Available Not Available Not Available cephalexin 500 mg capsule 11/25 completed Not Available Not Available Not Available pseudoephed rine-guaife nesin ER 80-700 mg tablet,exte nded release Percocet 5-325MG Tablet 01/13 completed Statu s: 'Disc ontin ued'; Not Available Not Available Not Available docusate sodium 100 mg capsule TAKE 1 CAPSULE BY MOUTH TWO TIMES A DAY active Not Available Not Available No t Available diclofenac sodium 75 mg tablet,terese yed release TAKE 1 TABLET BY MOUTH TWICE DAILY DURING GOUT FLARE. REPLACES INDOCIN active Not Available Not Available No t Available montelukast 10 mg tablet TAKE 1 TABLET BY MOUTH DAILY IN THE EVENING FOR ALLERGIES active Not Available Not Available No t Available codeine 10 mg-guaifene sin 100 mg/5 mL oral liquid TAKE 10 ML BY MOUTH DAILY AT BEDTIME FOR 7 DAYS NEEDED FOR COUGH active Not Available Not Available No t Available allopurinol 300 mg tablet TAKE 1 TABLET BY MOUTH DAILY 11/25 completed Not Available Not Available Not Available pravastatin 20 mg tablet TAKE 1 TABLET BY MOUTH DAILY. REPLACES 10 MG active Not Available Not Available No t Available clobetasol 0.05 % topical ointment active Not Available Not Available Not Available colchicine 0.6 mg tablet TAKE 1 TABLET BY MOUTH DAILY active Not Available Not Available No t Available ketoconazol e 2 % topical cream APPLY TO THE TO THE AFFECTED AREA OF THE SKIN FOLDS TWICE DAILY UNTIL CLEAR THEN ONCE WEEKLY FOR MAINTENAN CE active Not Available Not Available No t Available ondansetron 4 mg disintegrat ing tablet DISSOLVE 1 TABLET ON THE TONGUE EVERY 8 HOURS FOR 3 DAYS NEEDED FOR NAUSEA OR VOMITING 11/25 completed Not Available Not Available Not Available losartan 100 mg tablet TAKE 1 TABLET BY MOUTH DAILY active Not Available Not Available No t Available betamethaso ne dipropionat e 0.05 % lotion active Not Available Not Available Not Available ipratropium bromide 21 mcg (0.03 %) nasal spray SPRAY ONCE IN EACH NOSTRIL DAILY AT BEDTIME 11/25 completed Not Available Not Available Not Available amoxicillin 875 mg-potassiu m clavulanate 125 mg tablet TAKE 1 TABLET BY MOUTH EVERY 12 HOURS FOR 7 DAYS 09/06 completed Not Available Not Available Not Available calcipotrie ne 0.005 % topical ointment active Not Available Not Available Not Available olmesartan 40 mg tablet TAKE 1 TABLET BY MOUTH DAILY TO. REPLACE LOSARTAN active Not Available Not Available No t Available eszopiclone 2 mg tablet TAKE 1 TABLET BY MOUTH DAILY AT BEDTIME FOR 10 DAYS. REPLACES XANAX 11/25 completed Not Available Not Available Not Available fentanyl fentaNYL 50MCG/HR Patch 72 Hour 01/13 completed Statu s: 'Disc ontin ued'; Not Available Not Available Not Available Singulair Singulair 4MG Packet 01/13 completed Statu s: 'Disc ontin ued'; Not Available Not Available Not Available FreeStyle Lite Meter kit CHECK BLOOD SUGAR active Not Available Not Available No t Available FreeStyle Lite Strips USE DIRECTED TO TEST BLOOD SUGAR THREE TIMES DAILY FOR 2 WEEK active Not Available Not Available No t Available oxycodone 20 mg tablet TAKE 1 TABLET BY MOUTH EVERY 4 HOURS NEEDED FOR SEVERE PAIN active Not Available Not Available No t Available Gavilax 17 gram/dose oral powder TAKE DIRECTED BY MOUTH DAILY. MIX IN WATER BEFORE TAKING active Not Available Not Available No t Available Wixela Inhub 250 mcg-50 mcg/dose powder for inhalation INHALE 1 PUFF BY MOUTH TWICE DAILY active Not Available Not Available No t Available BinaxNOW COVID-19 Ag Self Test kit TEST DIRECTED TODAY 09/06 completed Not Available Not Available Not Available Paxlovid 300 mg (150 mg x 2)-100 mg tablets in a dose pack TAKE 3 TABLETS BY MOUTH TWICE DAILY X5 DAYS 09/06 completed Not Available Not Available Not Available Vitals None Recorded Social History None recorded. Functional Status None recorded. Mental Status None recorded. Family History Nothing Reported. Medical History No medical history recorded. Past Encounters Encounter ID Performer Location Encounter Start Date Encounter Closed Date Diagnosis/Indication Diagnosis SNOMED-CT Code Diagnosis ICD10 Code Diagnosis Note [id number] Clare Garcia APRN [facility] [address] [place] [address] 11/03/2024 10:39:57 11/29/2024 04:02:56 Osteoarthritis of right knee joint [id number] 30806 M17.11 [id number] KELLY Sinha PT [address] [place] [address] 11/21/2024 14:44:18 11/21/2024 15:57:48 Surgical follow-up [id number] Z47.1 Z96.441 [id number] KELLY Sinha PT [address] [place] [address] 11/23/2024 14:48:44 11/23/2024 17:47:14 Surgical follow-up 156671076 Z47.1 Z96.651 Health Concerns Section Related Observation LastModified by Organization Detai ls LastModified Time None Recorded Concern Status LastModified by Organization Details LastModified Time None Recorded Payers Encounter Date Sequence Insurance Name Policy Number Policy Felix Covered Member ID Felix Member ID Guarantor Name 11/23/2024 1 [facility] - DOS ON OR AFTER 2023 - ONE CARE (MEDICARE REPLACEMENT/AD VANTAGE - HMO) Oleksandr Mckeon [id number] Oleksandr Mckeon Notes Date Note Type Note Provider Name and Address Organization Details Recorded Time 11/23/2024 text/html Pt reporting valerie n about 04/25 coming into therapy, reporting good compliance with stretching at home. Josy Arce DPT [address], [place], [address], [facility] - [facility] 11/23/2024 17:47:08
--- OUTSIDE RECORDS SUMMARY | 2024-12-13 12:32 | XMS_ITS | Encounter Summary ---
Author Organization [facility] Address [address] [place] [address] Care Team Providers Care Patient Access Manager Name Role Phone Unavailable Primary Care Provider Unavailabl e Encounter Details Date Type Department Care Team (Late st Contact Info) Description 03/06/2022 Dental Interim Note [facility] [address] [facility] [address] [place] [address] Angella Boyer, [address] [place] [address] Social History Tobacco Use Types Packs/Day Years Used Date Smoking Tobacco: Never Assessed Social Connections Answer Date Recorded Social Connections and Isolation 0 03/06/2022 Financial Resource Strain Answer Date R ecorded Financial Resource Strain 0 2021 Stress Answer Date Recorded Stress 0 03/06/2022 Physical Activity Answer Date Recorded Physical Activity 0 03/06/2022 Food Insecurity Answer Date Recorded Food 0 03/06/2022 Transportation Needs Answer Date Record ed Transportation 0 03/06/2022 Housing Stability Answer Date Recorded Housing 0 03/06/2022 Safety and Environment Answer Date Ernie rded Safety 0 03/06/2022 Utilities Answer Date Recorded Utilities 0 03/06/2022 Employment Answer Date Recorded Employment 0 03/06/2022 Sex and Gender Information Value Date Recorded Sex Assigned at Male 03/18/2022 1:27 PM PDT Legal Sex Male 6:59 AM PST Gender Identity Male 03/18/2022 1:27 PM PDT Sexual Orientation Not on file COVID-19 Exposure Response Date Recorded In the last 10 days, have yo u been in contact with someone who was confirmed or suspected to have Coronavirus/COVID-19? No / Unsure 02/17/2022 8:57 AM EDT documented as of this encounter Plan of Treatment Not on file documented as of this encounter Visit Diagnoses Not on filedocumented in this encounter
--- OUTSIDE RECORDS SUMMARY | 2024-12-13 12:32 | XMS_ITS | Continuity of Care Document ---
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 Pt still have mod pain with passive stretching. Pt encourage to take a few days off to allow muscle soreness to subside. P: Continue with POC, progress as tolerated. [email or web address] Not available 12/01/2024 13:29:44 Plan of Treatment Reminders Order Date Submit [...] a4ajBk vP9nXo QUaueC m3YtLR FvZlgJ JJ8mAn HZtai3 3u0308 AC0Kqb 3%2BAU 6GhKiQ trMwF INTERFACE [facility] [address], [place], [address], 11/25/2024 09:57:02 11/25/19 25 11/25/2024 XR, knee, 3 view [email or web address] ?Encry pted=s hAaTro YD8dLq bEUv6g %2BXZw aYqtaq 0bqfl% 2Fg9IQ a4ajBk vP9nXo QUaueC m3YtLR FvZlgJ JJ8mAn HZtai3 3l6472 AC0Kqb 3%2BAU 6GhKiQ trMwF INTERFACE [facility] [address], [place], [address], 11/25/2024 09:57:05 Result Notes None recorded. 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 Procedures Surgical History Date Name Laterality Status Provider Name and Address Organization Details Recorded Time 5 55284 Therapeutic Exercise (1:1) completed Zara Casas, [employer] [address], [place], [address], [facility] 12/08/2024 16:43:56 5 80882: Hot or Cold Pack completed Zara Casas [employer] [address], [place], [address], [facility] 12/08/2024 16:43:52 5 53065: Manual therapy completed Zara Casas, [employer] [address], [place], [address], [facility] 12/08/2024 16:44:00 5 82738 Therapeutic Exercise (1:1) completed Branden Sorto PTA [address], [place], [address], [facility] 11/30/2024 12:03:45 5 52019: Hot or Cold Pack completed Branden Sorto [employer] [address], [place], [address], [facility] 12/01/2024 13:24:41 5 54068: Manual therapy completed Branden Sorto [employer] [address], [place], [address], [facility] 11/30/2024 12:03:45 5 58786 Therapeutic Exercise (1:1) completed Branden Sorto PTA [address], [place], [address], [facility] 11/28/2024 14:24:53 5 08161: Hot or Cold Pack completed Branden Sorto PTA [address], [place], [address], [facility] 11/25/2024 16:21:02 5 25933: Manual therapy completed Branden Sorto PTA [address], [place], [address], [facility] 11/25/2024 16:21:02 5 54959 Therapeutic Exercise (1:1) completed Josy Arce DPT [address], [place], [address], [facility] 11/23/2024 17:45:18 5 94445: Hot or Cold Pack completed Josy Arce DPT [address], [place], [address], [facility] 11/23/2024 17:45:24 5 08651: Manual therapy completed Josy Arce DPT [address], [place], [address], [facility] 11/23/2024 17:45:09 5 98919 Therapeutic Exercise (1:1) completed Josy Arce DPT [address], [place], [address], [facility] 11/21/2024 15:50:33 5 66815: Low complexity PT Eval completed Josy Arce DPT [address], [place], [address], [facility] 11/21/2024 15:51:36 4 81391 Therapeutic Exercise (1:1) completed Josy Arce DPT [address], [place], [address], [facility] 10/18/2024 10:50:09 4 69528: Low complexity PT Eval completed Josy Arce, DPT [address], [place], [address], [facility] 10/18/2024 10:51:57 Imaging Results None recorded. Procedure Notes None recorded. Medical Equipment None Reported. Allergies Allergen ID Allergen Name Allergen Category Reaction Reaction Severity Criticality Documentation Date Start Date Code Code System Note Provider Name and Address Organization Details Recorded Time 736531 Substance with sulfonami de structure and antibacte rial mechanism of action (substanc e) medicatio n Not available Not available Not available 08/25/2024 42561 8003 SNOMED Dylan Eason [facility] 4 07:50:32 031581 caffeine food,medi cation headache hives itching nausea rash respirato ry distress moderate moderate severe moderate severe moderate Not available 08/25/2024 1886 RxNorm Dylan Eason [facility] 4 07:50:32 936487 karin extract food Not available Not available Not available 08/25/2024 07989 97 RxNorm Dylan Eason [facility] 4 07:50:32 008741 pink dye Not available Not available Not available Not available 08/25/2024 UNK Dylan Eason [facility] 4 07:50:32 191157 red dye food,medi cation Not available Not available Not available 08/25/2024 UNK Dylan Eason [facility] 4 07:50:32 13830 morphine sulfate medicatio n Not available Not available Not available 01/18/20242013 19185 RxNorm Not Available [facility] 4 11:09:56 Medications Name Sig Start Date [...] SNOMED-CT Code Diagnosis ICD10 Code Diagnosis Note [id number] MARG[facility] [address] [place] [address] 11/03/2024 10:39:57 11/29/2024 04:02:56 Osteoarthritis of right knee joint 4336610124 74215 M17.11 [id number] Josy Arce DPT [facility] [address] [place] [address] 11/21/2024 14:44:18 11/21/2024 15:57:48 Surgical follow-up 652931472 Z47.1 Z96.239 [id number] [facility] [address] [place] [address] 11/23/2024 14:48:44 11/23/2024 17:47:14 Surgical follow-up 203510546 Z47.1 Z96.546 [id number] Jackie Falk PA-C [facility] [address] [place] [address] 11/25/2024 09:23:17 12/08/2024 08:33:27 Postoperative visit 129862248 Z48.89 Knee joint prosthesis present 1533542499 02 Z96.152 [id number] Josy Arce DPT [facility] [address] [place] [address] 11/28/2024 13:23:05 11/28/2024 14:25:54 Surgical follow-up 546608630 Z47.1 Z96.078 [id number] Josy Arce DPT [facility] [address] [place] [address] 12/01/2024 12:29:30 12/01/2024 13:30:34 Surgical follow-up 415771185 Z47.1 Z96.651 Health Concerns Section Related Observation LastModified by Organization Detai ls LastModified Time None Recorded Concern Status LastModified by Organization Details LastModified Time None Recorded Payers Encounter Date Sequence Insurance Name Policy Number Policy Felix Covered Member ID Felix Member ID Guarantor Name 12/01/2024 1 [facility] - DOS ON OR AFTER 2023 - ONE CARE (MEDICARE REPLACEMENT/AD VANTAGE - HMO) Oleksandr Mckeon [id number] Oleksandr Mckeon Notes Date Note Type Note Provider Name and Address Organization Details Recorded Time 12/01/2024 text/html I was doing my exercises but I think I did too much last night and had to stop. Josy Arce, DPT [address] [facility] [address], [place], [address], [facility] 12/01/2024 16:53:23
--- OUTSIDE RECORDS SUMMARY | 2024-12-13 12:32 | XMS_ITS | Clinical Summary ---
Author Organization [facility] Address [address] [place] [address] Care Team Providers Care Resort Manager Name Role Phone Kvng Oconnor MD Primary Care Provider [phone] Allergies Active Allergy Reactions Criticality Noted Date Comments Caffeine 10/29/2023 Morphine Hives,Itching 10/29/2023 Medications Medication Sig Dispensed Refills Start Date End Date Status amLODIPine (NORVASC) tablet 5 mg Take by mouth. 0 Active carBAMazepine (TEGretol XR) 400 MG 12 hr tablet TAKE 1 TABLET BY MOUTH TWICE DAILY WITH MEALS. REPLACES 100 MG CAPSULE 0 09/25/2023 Active fluticasone-salmetero l 500-50 MCG/ACT AEPB Inhale 1 puff into the lungs. 0 Active losartan (COZAAR) 100 MG tablet Take 1 tablet (100 mg total) by mouth daily. 0 07/31/2023 Active montelukast (SINGULAIR) 10 MG tablet TAKE 1 TABLET BY MOUTH DAILY IN THE EVENING FOR ALLERGIES 0 09/02/2023 Active oxyCODONE-acetaminoph en (PERCOCET) 10-325 MG per tablet 0 10/15/2023 Active naloxone (Narcan) 4 MG/0.1ML nasal spray spray or apply 4 mg inside Nose. 0 06/19/2018 Active Santyl ointment APPLY TOPICALLY TO THE AFFECTED AREA DAILY 0 09/23/2023 Active polyethylene glycol (GLYCOLAX) 17 GM/SCOOP powder TAKE DIRECTED BY MOUTH DAILY. MIX IN WATER BEFORE TAKING 0 11/03/2023 Active allopurinol (ZYLOPRIM) 300 MG tablet Take 1 tablet (300 mg total) by mouth daily. 0 10/26/2023 Active ALPRAZolam (XANAX) 0.25 MG tablet TAKE 1 TABLET BY MOUTH DAILY AT BEDTIME NEEDED FOR ANXIETY 0 11/03/2023 Active Active Problems No known active problems Social History Tobacco Use Types Packs/Day Years Used Date Smoking Tobacco: Never Smokeless Tobacco: Never Tobacco Cessation:Counseling Given: Not Answered Alcohol Use Standard Drinks/Week Comments Not Currently 0 (1 standard drink = 0.6 oz pur e alcohol) Sex and Gender Information Value Date Recorded Sex Assigned at Male 10/29/2023 11:48 AM EST Gender Identity Not on file Sexual Orientation Not on file Job Start Date Occupation Industry Not on file Not on file Not on file Last Filed Vital Signs Vital Sign Reading Time Taken Comments Blood Pressure 165/88 11/07/2023 4:14 PM EST Pulse 53 11/07/2023 4:14 PM EST Temperature 36.5 ??C (97.7 ??F) 11/07/2023 4:14 PM ES T Respiratory Rate 17 11/07/2023 4:14 PM EST Oxygen Saturation 100% 11/07/2023 4:14 PM EST Inhaled Oxygen Concentration - - Weight 104.3 kg (230 lb) 11/07/2023 4:14 PM EST Height 177.8 cm (5' 10 ) 11/07/2023 4:14 PM EST Body Mass Index 33 11/07/2023 4:14 PM EST Plan of Treatment Health Maintenance Due Date Last Done Comments Hepatitis C Screening 1964 Depression Screening 1976 Preventative Health Evaluation 1982 Colon Cancer Screening (Colonoscopy) 2009 Shingrix-Zoster Vaccine (1 of 2) 2014 DTap / Tdap / Td (1 - Tdap) 04/20/2021 04/19/2021 COVID-19 Vaccine ( season) 2024 05/05/2022, 02/19/2021, 01/29/2021 Influenza Vaccine (#1) 2024 6, 09/04/2015, 10/13/2014, Additional history exists RSV Adult > 60+ Yrs or (1 - 1-dose 75+ series) 2039 Pneumococcal Vaccine Aged Out 07/28/2007 No long er eligible based on patient's age to complete this topic Hepatitis B Vaccines Completed 02/24/2017, 04/01/2016, 09/04/2015 RSV Ped < 20 months Aged Out No longe r eligible based on patient's age to complete this topic Care Teams Resort Manager Relationship Specialty Start Date End Date Kvng Oconnor MD [address] [place] [address] PCP - General Internal Medicine 01/01/24
== END 2024-12-13 11:36 | disposition home or self-care (01) ==
PROVIDERS: PCP Psychiatry & Neurology Neurology; Visit Provider Student in an Organized Health Care Education/Training Program
DX: M1A.09X1 Idiopathic chronic gout, multiple sites, with tophus (tophi) (principal); M17.0 Bilateral primary osteoarthritis of knee; Z79.899 Other long term (current) drug therapy
CPT/HCPCS: 99214

== ENCOUNTER 2025-05-04 14:15 | Outpatient (AMB) | payer OTHER, SELFPAY ==
--- NOTE | 2025-05-04 14:20 | MHC.OFFVIS ---
Vital Signs 05/04/25 14:25 Weight 240 lb BP 193/83 H Blood Pressure Location Rt brachial Position Sitting Respiration 18 Pulse 76 Pulse Source Pulse Oximeter Pulse Oximetry (%) 100 Intake Visit Reasons: Diabetic neuropathy Horse Show Judge Required: No Allergies caffeine Allergy (Intermediate, Verified 05/04/25 14:24) Headache morphine Allergy (Intermediate, Verified 05/04/25 14:24) Headache red dye Allergy (Intermediate, Verified 05/04/25 14:24) Rash karin Allergy (Intermediate, Verified 05/04/25 14:24) Rash Sulfa (Sulfonamide Antibiotics) Allergy (Intermediate, Verified 05/04/25 14:24) Rash HPI Comments Details: Oleksandr is very pleasant 59 years old gentleman who presents in my office complaining on pain in bilateral feet. He was suffering from diabetes for many years he says since 2004. He lost significant amount of weight and now his hemoglobin A1c within normal limits he is not taking any medications for diabetes and yet he is suffering from severe pain in bilateral feet in terms of burning, pins and needles, sensation of bilateral crushing tingling and stinging. Because of his pain he can not sleep normally can not do activities of daily living he can take care of himself but he can not function normally. He is on permanent disability. Called [facility] locations weather changes in movements aggravate his pain. Oral medications help his pain minimally. He is currently taking significant amount of carbamazepine and he says that this is the only thing which helps his pain to reduce minimally. He also taking oxycodone as needed for his pain he reports that the pain is more distant with oxycodone intake and yet very severe. In the past he tried gabapentin which made him angry he tried maximal doses of Lyrica which did not help his pain at all. He tried antidepressants for his pain control which were not effective. Past medical history significant for hypertension obesity history of alcohol abuse he is sober for 13 years history of heart murmur history of diabetes he is suffering from gout and he has arthritis. Forgot he is taking allopurinol at maximal doses. He denies smoking cigarettes denies drinking alcohol he takes marijuana at night it helps his pain minimally. Past surgical history significant for right knee replacement and knee fracture surgery. [facility] Medical History (Updated 05/04/25 @ 14:51 by Salty Sommer MD) Knee osteoarthritis On allopurinol therapy Surgical History History of right knee joint replacement Family History Father Parkinsons Social History Household Members: None Housing: Apartment Alcohol intake: former Patient Tobacco Use Status: Former Tobacco user Cigarette Packs Per Day: 2 Years Smoked: 36 Substance Use Type: Marijuana Review of Systems Const All systems reviewed & are unremarkable except as noted in HPI and below ENT Reports Normal hearing present Neuro Reports Normal hearing present, Denies Abnormal speech present, Denies confusion and Denies Sensory deficit (Neuro) Psych Denies confusion Physical Exam Vital Signs: Last Vital Signs Pulse 76 05/04/25 14:25 Resp 18 05/04/25 14:25 BP 193/83 H 05/04/25 14:25 Pulse Ox 100 05/04/25 14:25 Const General: no acute distress; No confusion Nutritional Appearance: obese morbidly obese Orientation/consciousness: patient oriented x3 and No confusion Eyes General: appearance normal, both eyes and all related structures Pupils: Equal, round and reactive pupils present EOM: EOMs intact bilaterally Neck Neck: Yes full ROM Chest Chest palpation & inspection: normal inspection of the chest Resp Effort & Inspection: normal respiratory effort, able to speak in complete sentences, normal respiratory pattern, no audible wheezes and no cough Cardio Jugular venous distension: no JVD GI Inspection: Yes normal to inspection Neuro General: patient oriented x3, gait normal and No confusion Cranial nerves: Yes CN's II-XII intact bilaterally, Yes Equal, round and reactive pupils present, Yes Normal hearing present and Yes Ability to bilaterally elevate shoulders present Speech: No Abnormal speech present Gait exam (Neuro): Normal gait present Motor exam (neuro): 5/5 motor strength present throughout Sensory Exam: No Sensory deficit (Neuro) Extrem Other: Examination of bilateral lower extremities no discoloration, normal capillary refill, bilateral dorsalis pedis pulses are prominent +2 on the right and +1 on the left, difficult to palpate bilateral PT pulses. No edema. General: No pedal edema Psych Speech and movement: Normal speech and movement present Affect: normal affect Attitude: cooperative Thought process: Normal thought process present Thought content: Normal thought content present Insight: Good insight present (Psych) Judgement: Good judgement present (Psych) Assessment & Plan Assessment & Plan (1) Gout: Code(s): M10.9 - Gout, unspecified Category: Medical Qualifiers: Gout site: multiple sites Gout etiology: idiopathic Chronicity: chronic Presence of tophus: with tophus Qualified Code(s): M1A.09X1 - Idiopathic chronic gout, multiple sites, with tophus (tophi) (2) On allopurinol therapy: Code(s): Z79.899 - Other mcfp (current) drug therapy Category: Medical (3) Diabetic polyneuropathy: Code(s): E11.42 - Type 2 diabetes mellitus with diabetic polyneuropathy Category: Medical (4) Chronic pain syndrome: Code(s): G89.4 - Chronic pain syndrome Category: Medical Plan This patient came to my office with referral from Margarita to schedule him for a trial of Nevro SCS. He will go through psychological evaluation. As soon as he will complete psychological evaluation I will schedule him for the trial. With good results of the trial we will schedule him for Nevro SCS implant. Coding Level of Care Code New Pt Level 3 (57594) Diagnoses Idiopathic chronic gout of multiple sites with tophus M1A.09X1 Gout site: multiple sites Gout etiology: idiopathic Chronicity: chronic Presence of tophus: with tophus On allopurinol therapy Z79.899 Diabetic polyneuropathy E11.42 Chronic pain syndrome G89.4
[2025-05-04 14:25] VITALS: BP 193/83; PULSE 76; RESP 18; O2SAT 100
--- OUTSIDE RECORDS SUMMARY | 2025-05-04 15:31 | XMS_ITS | Data Portability ---
Author Organization [employer], [facility] Address [address] [place] [address] Care Team Providers Care Manager Economic Name Role Phone HIM CCA OTHER ERYNSTACIA NICHO Primary Care Provider [phone] Assessment Encounter Date Assessment Date Assessment LastModified [...] Assessment and Plan as documented by the Grinding Wheel Operator. Patient given the opportunity to ask questions. As per above, 2nd call for patient with nonproductive cough. Also expresses viral URI symptoms. Denies any chest pain or shortness of breath. Per greenhouse florist on the scene appears nontoxic and has [...] Assessment and Plan as documented by the Grinding Wheel Operator. Patient given the opportunity to ask questions. Our service contacted for an assessment of: Urinary symptoms As per above, patient with frequency and occasional back pain. No significant dysuria. Seen by this service approximately a month ago and had a urine analysis which was negative as well as culture which showed urogenital minda not consistent with a UTI. Per greenhouse florist on the scene, vital signs are stable [...] assessment and plan as documented by the greenhouse florist. I provided real time medical direction for this encounter and was immediately available to provide additional phone based assistance as needed. History as noted by greenhouse florist. Pt with history of asthma, gout, HTN, [...] Modified Time Details Appointments None recorded. Lab urinalysis, dipstick 2023 btils [facility], [address] [place] [address], [id number] 4 13:27:17 culture, urine 2023 JOSE [facility] (Centralized Electronic Ordering - All Locations), Patient Can Go To The Location Of Their Choice, [id number] 4 10:05:54 culture, urine 2023 024 JOSE [facility] (Centralized Electronic Ordering - All Locations), Patient Can Go To The Location Of Their Choice, [id number] 4 10:06:25 urinalysis, dipstick [address], [id number] 4 13:53:56 culture, urine 2023 024 JOSE [facility] (Centralized Electronic Ordering - All Locations), Patient Can Go To The Location Of Their Choice, [id number] 4 12:06:46 urinalysis, dipstick 2023 024 [facility] [address] [place] [address], [id number] 4 08:16:47 rapid SARS CoV 2 Ag, QL IA, respiratory specimen [address], [address] [place] [address], [id number] 3 14:18:42 Referral None recorded. Procedures None recorded. Surgeries None recorded. Imaging None recorded. Medication Orders codeine 10 mg-guaifene sin 100 mg/5 mL oral liquid 2022 023 [address] [id number], [address] [place], [place], [id number], 3 14:17:47 Patient TargetsNo targets recorded. Patient InstructionsNo instructions recorded. Reason for Referral None Reported. Results Created Date Observation Date Name Description Value Unit Range Abnormal Flag Note LastModifiedBy Organization Detail LastModifiedTime 10/01/20 23 10/01/2023 rapid SARS CoV 2 Ag, QL IA, respi rator y speci men rapid SARS CoV 2 Ag, QL IA, respiratory specimen negati ve Not Available Main - [facility] ed [address] [place] [address], [id number] 10/01/2023 14:18:22 06/30/20 24 07/02/2024 URINE CULTU RE,CO MPREH ENSIV E urine culture,comp rehensive Final report Not Available [facility] ([facility]) [address] [facility] [place], [place], [address], 07/02/2024 12:06:46 06/30/20 24 07/02/2024 URINE CULTU RE,CO MPREH ENSIV E result 1 COMMEN T Mixed uroge nital minda 25,00 0-50, 000 colon y formi ng units per mL Not Available [facility] ([facility]) [address] [place], [address], 07/02/2024 12:06:46 07/27/20 24 07/29/2024 URINE CULTU RE,CO MPREH ENSIV E urine culture,comp rehensive Final report Not Available [facility] ([facility]) [address] [place], [address], 07/29/2024 10:06:21 07/27/20 24 07/29/2024 URINE CULTU RE,CO MPREH ENSIV E result 1 COMMEN T Mixed uroge nital minda 10,00 0-25, 000 colon y formi ng units per mL Not Available [facility] ([facility]) [address] [place], [address], 07/29/2024 10:06:21 08/27/20 24 08/31/2024 URINE CULTU RE,CO MPREH ENSIV E urine culture,comp rehensive Final report Not Available [facility] ([facility]) [address] [place], [address], 08/31/2024 10:06:25 08/27/20 24 08/31/2024 URINE CULTU RE,CO MPREH ENSIV E result 1 COMMEN T No growt h in 36 - 48 hours . Not Available [facility] ([facility]) [address] [place], [address], 08/31/2024 10:06:25 09/24/20 24 09/26/2024 URINE CULTU RE, ROUTI NE urine culture, routine Final report Not Available [facility] ([facility]) [address] [place], [address], 09/26/2024 10:05:54 09/24/20 24 09/26/2024 URINE CULTU RE, ROUTI NE result 1 No growth Not Available [facility] ([facility]) [address] [facility] [place], [place], [address], 09/26/2024 10:05:54 09/24/20 24 09/24/2024 urina lysis , dipst ick Leukocytes negati ve Not Available [facility] ed [address] [place] [address], [id number] 09/24/2024 13:22:30 09/24/20 24 09/24/2024 urina lysis , dipst ick Nitrite negati ve Not Available [facility] ed [address] [place] [address], [id number] 09/24/2024 13:22:30 09/24/20 24 09/24/2024 urina lysis , dipst ick Blood negati ve Not Available [facility] ed [address] [place] [address], [phone] 09/24/2024 13:22:30 09/24/20 24 09/24/2024 urina lysis , dipst ick Glucose negati ve Not Available [facility] ed [address] [place] [address], [phone] 09/24/2024 13:22:30 Result Notes None recorded. Medical [...] Not available Not available Not available 06/30/2024 24353 9 RxNorm Not Available [facility] - production [...] Available No t Available Vitals Date Recorded Body temperature Body weight Respiratory rate Heart rate Oxygen saturation Oxygen saturation in Arterial blood by Pulse oximetry Systolic blood pressure Diastolic blood pressure Provider Name and Address Organization Details Last Updated DateTime 4 98.2 [degF] 91643.7 2 g 16 /min 64 /min 98 % 98 % 162 mm[Hg] 64 mm[Hg] Not Available [facility] [employer] 4 19:44:22 Date Recorded Oxygen saturation Oxygen saturation in Arterial blood by Pulse oximetry Body height Heart rate Body weight Respiratory rate Body temperature Systolic blood pressure Diastolic blood pressure Provider Name and Address Organization Details Last Updated DateTime 4 98 % 98 % 177.8 cm 60 /min 96604.6 48 g 16 /min 98.6 [degF] 128 mm[Hg] 80 mm[Hg] Not Available [employer] 4 11:00:15 Date Recorded Body temperature Respiratory rate Heart rate Oxygen saturation Oxygen saturation in Arterial blood by Pulse oximetry Systolic blood pressure Diastolic blood pressure Provider Name and Address Organization Details Last Updated DateTime 4 98 [degF] 16 /min 48 /min 98 % 98 % 161 mm[Hg] 88 mm[Hg] Not Available [employer] 4 13:19:41 Date Recorded Oxygen saturation Oxygen saturation in Arterial blood by Pulse oximetry Respiratory rate Heart rate Body weight Body temperature Systolic blood pressure Diastolic blood pressure Provider Name and Address Organization Details Last Updated DateTime 3 98 % 98 % 18 /min 86 /min 214516. 752 g 97.8 [degF] 158 mm[Hg] 76 mm[Hg] Not Available [employer] 3 13:29:45 Date Recorded Heart rate Respiratory rate Body temperature Oxygen saturation Oxygen saturation in Arterial blood by Pulse oximetry Systolic blood pressure Diastolic blood pressure Provider Name and Address Organization Details Last Updated DateTime 3 60 /min 16 /min 96.2 [degF] 99 % 99 % 193 mm[Hg] 99 mm[Hg] Not Available [employer] 3 21:56:30 Social History None recorded. Functional Status None recorded. Mental Status None recorded. Family History Nothing Reported. Medical History No medical history recorded. Past Encounters Encounter ID Performer Location Encounter Start Date Encounter Closed Date Diagnosis/Indication Diagnosis SNOMED-CT Code Diagnosis ICD10 Code Diagnosis Note [id number] Avani Casiano MD Main - [facility] [address] [place] [phone] 01/22/2022 11:30:03 07/04/2022 14:47:30 Cellulitis of right lower limb [id number] L03.115 [id number] Abdelrahman Weiss MD Main - [facility] [address] [place] [phone] 08/15/2022 20:10:05 08/19/2022 15:39:03 Essential hypertension 38787081 I10 [id number] New Chu MD Main - [facility] [address] [place] [phone] 10/20/2022 12:59:12 10/22/2022 10:53:26 Influenza A virus present [id number] 08 J09.X2 This 57-year-ol d male was recently diagnosed with influenza and is taking Tamiflu. For the past several days he has had a cough productive of yellow sputum. I recommende d that he continue the Tamiflu and contact his PCP if his symptoms persist or worsen for a possible chest x-ray. The patient agreed with this plan. [id number] Abdelrahman Weiss MD [facility] [address] [place] [phone] 01/19/2023 12:03:46 01/21/2023 09:36:34 Community acquired pneumonia 509641948 J18.9 Cellulitis of left lower limb [id number] L03.116 [id number] Mary Argueta MD Main - [facility] [address] [place] [phone] 10/01/2023 13:29:43 10/01/2023 14:19:30 Upper respiratory infection 19343452 J06.9 [id number] Tiffanie Dawkins MD Main - [facility] [address] [place] [phone] 10/03/2023 21:56:28 10/04/2023 15:52:20 Cough 19648774 R05.9 [id number] RADHA SALDIVAR MD Main - [facility] [address] [place] [phone] 06/30/2024 19:44:20 07/01/2024 13:01:40 Dysuria 83526330 R30.0 Evaluation in the field was performed by my greenhouse florist colleague, as noted above, I provided real-time [...] tenderness . No Matthias discussion with the greenhouse florist, the urinalysis (UA) was unremarkab le, showing no leukocytes , ketones, or blood. The urine was yellow in color; however, no picture was uploaded, as the greenhouse florist discarded it prior to entering it in [...] lower extremity edema or any other concerns. [id number] Tiffanie Dawkins MD Main - [facility] [address] [place] [phone] 08/27/2024 11:00:09 08/27/2024 17:48:46 Urinary symptoms 469420303 R39.9 [id number] Abdelrahman Weiss MD Main - [facility] [address] [place] [id number] 09/24/2024 13:19:35 09/24/2024 16:00:17 Increased frequency of urination 653201495 R35.0 Health Concerns Section Related Observation LastModified by Organization Detai ls LastModified Time None Recorded Concern Status LastModified by Organization Details LastModified Time None Recorded Advance Directives Directive None Recorded Payers Insurance Date Sequence Insurance Name Policy Number Policy Felix Covered Member ID Felix Member ID Guarantor Name 10/01/2023 1 [facility] - DOS PRIOR TO 2023 - DUAL ELIGIBLE (MEDICARE REPLACEMENT/AD VANTAGE - HMO) Oleksandr Mckeon [id number] Oleksandr Mckeon 09/24/2024 1 [facility] - DOS ON OR AFTER 2023 - DUAL ELIGIBLE - [employer] OPTIONS AND ONE CARE (MEDICARE REPLACEMENT/AD VANTAGE - HMO) Oleksandr Mckeon [id number] Oleksanrd Mckeon Notes Date Note Type Note Provider Name and Address Organization Details Recorded Time 10/01/2023 text/html [facility] Nursing Assessment: Chief Complaints: Cough PMH: Diabetes, COPD/Asthma Allergies: Morphine Comments: Member reports cold s/s since Thursday - Cough/congestion/SOB - Denies fever and sore throat - Denies Body aches - Denies N/V - Lisbeth GILL .................... .................... .................... .................... .................... .................... .................... . Grinding Wheel Operator Note From Chandler Blair: Pt co productive cough with nasal congestion for 4 days COVID neg. Pt took guaifenesin last evening with much relief this morning as he states he coughed a lot out this morning but is now feeling better and best he has felt all week. Pt denies SOB CP fever diarrhea vomiting or nausea. C contacted and Guafenesin called into RX. Pt advised to follow up with pcp. Grinding Wheel Operator Allergies: Morphine .................... .................... .................... .................... .................... .................... .................... . Disposition: Fulfilled Mary Argueta MD [address] [facility],[address], [place], [address], [employer] [email or web address] 10/01/2023 14:19:27 10/03/2023 text/html [facility] Nursing Assessment: Chief Complaints: Cough PMH: Diabetes, COPD/Asthma Allergies: Morphine Comments: Coughing for the past 4 days. Cough not improving. c/o head pressure. Taking Dayquil and Nyquil with no relief. No shortness of breath. Would like to be re-evaluated to consider starting antibiotics. .................... .................... .................... .................... .................... .................... .................... . Grinding Wheel Operator Note From Percy Nix: [facility] 3 arrives to find 58-year-old male seated on couch. Patient reports one week of cough and congestion. Patient was visited on Thursday through [facility] and was advised that this was likely a viral sickness. Patient states he was supposed to have been prescribed guaifenesin with codeine by [facility] at that time, but the prescription [...] Lung sounds clear and equal both sides. [facility] consulted, patient is advised to continue with DayQuil and NyQuil and follow up with primary care when possible. [facility] states guaifenesin and codeine is not prescribable through [facility] and antibiotics are not advised for this particular illness. [facility] 3 clear. Grinding Wheel Operator Allergies: Morphine .................... .................... .................... .................... .................... .................... .................... . Disposition: Fulfilled Tiffanie Dawkins MD [address] [place] [address],[address], [place], [address], [employer] [facility] [email or web address] 10/03/2023 21:59:14 06/30/2024 text/html [facility] Nurse Triage Notes (Sim Bhatia): Reason For Request: Patient possible UTI, - Lots of Urine, and stomach pain. Chief Complaints: Edema, UTI/Pyelonephritis PMH: Diabetes, COPD/Asthma Allergies: Morphine, Bactrim Comments: Manager Of School verified the member's name//address and phone number. [...] emergency treatment if needed -Ankit Bhatia RN Grinding Wheel Operator Organization Information for Chandler Blair Business Legal Name: [facility] Transportation Address: [address] [place] [address], [place] [address], Oncology Patient Navigator: Mikey GUZMAN No.: [id number] Grinding Wheel Operator POC Test Results from Chandler Blair Urine Dipstick (20:53:10) Urine leukocytes: NR Urine nitrites: NR Urine urobilinogen: NR Urine protein: NR Urine pH: 5 pH Urine blood: NR Urine specific gravity: NR Urine ketones: NR Urine bilirubin: NR Urine glucose: NR .................... .................... .................... .................... .................... .................... .................... . Grinding Wheel Operator Note From Chandler Blair: Pt co sob [...] bilaterally. Pt sts is feeling better today. [facility] contacted and urine culture to lab mary. pt advised to follow up with pcp. Pt education on signs indicating the ER. [facility] Lab Orders: culture, urine: Performed Comment: lab mary sent Grinding Wheel Operator Allergies: Morphine, Bactrim .................... .................... .................... .................... .................... .................... .................... . Disposition: Osbaldo RADHA SALDIVAR MD [address] [facility],[address], [place], [address], [employer] 06/30/2024 22:59:08 08/27/2024 text/html [facility] Nurse Triage Notes (Yobany Severino): Reason For Request: Pt reporting suspected UTI, odor with urine, pain in his lower back and belly, slight nausea Chief Complaints: UTI/Pyelonephritis PMH: Diabetes, COPD/Asthma Allergies: Morphine, Bactrim Other Allergies: Karin, Bliss and red dye Comments: Manager Of School verified the Pt.'s name//address and phone number. Education provided on the response time and the Pt. was advised to monitor reported s/s and seek emergency treatment if needed. HPI: Diabetes, Asthma, Postprocedural hypertension, Gout, Edema extremities, History of ETOH abuseHistory of GI bleed.Pt reports feeling unwell with UTI symptoms - Lower back pain - bladder pain - Increased urination - Urine is cloudy with an odor - Chills and nausea - Fatigue - S/S x 2 weeks. Grinding Wheel Operator Organization Information for [employer] Business Legal Name: [employer]. Address: [address] [place] [address], Oncology Patient Navigator: Anish Swanson MD ENRIQUE No.: [id number] Grinding Wheel Operator POC Test Results from [employer] Urine Dipstick (10:16:41) Urine leukocytes: - KADIE [...] .................... .................... .................... .................... .................... .................... . Grinding Wheel Operator Note From Vargas Phelps: [facility] makes pt contact, 58 YO M CC of UTI like symptoms.[facility] obtains vital signs and a ten [...] and karin. With signifcant adverse reactions from bactrim.[facility] contacts [facility] and explains above mentioned. [facility] recommends we wait for the lab order to process to see the results and depending on the culture can treat accordingly. PT advised that if pain gets severe, develops a fever, n/v, or severe SOB to go to the ED.Report written by [place] Medic Carlos Elias [id number] .................... .................... .................... .................... .................... .................... .................... . Disposition: Fulfilled Tiffanie Juancho, MD [address] [facility],[address], [place], [address], [employer] [facility] [email or web address] 08/27/2024 11:04:19 09/24/2024 text/html This was a supervised home visit with greenhouse florist David Bernie. [facility] Nurse Triage Notes (Yobany Severino): Reason For Request: Pt reporting high BP and feeling weak, unsure what is going since around noon time>pt notes seeing his director loan this morning where reading was around 110/84 (*mbr is unsure exactly on bottom number) Chief Complaints: Weakness PMH: COPD/Asthma, Gout Comments: Manager Of School verified the Pt.'s name//address and phone number. Education provided on the response time and the Pt. was advised to monitor reported s/s and seek emergency treatment if needed. Pt reports feeling weakness - Blood glucose fluctuations - POC 62 - repeat POC was 117 - Denies CP and SOB - Chills - Pt reports he was seen by his director loan today and b/p was 110/84 = Pt is requesting a wellness check. Grinding Wheel Operator Organization Information for David Gibbs [employer] Legal Name: [employer]. Address: [address] [place] [id number], Oncology Patient Navigator: Anish Swanson MD [facility] No.: [id number] Grinding Wheel Operator POC Test Results from David Gibbs Urine Dipstick (13:54:05) Urine leukocytes: - KADIE Urine nitrites: - NIT Urine urobilinogen: normal URO Urine protein: 300 PRO Urine pH: 7.0 pH Urine blood: - BLO Urine specific gravity: 1.000 SG Urine ketones: - KET Urine bilirubin: - DANETTE Urine glucose: - GLU .................... .................... .................... .................... .................... .................... .................... . Grinding Wheel Operator Note From David Gibbs: Dispatched to a scheduled visit for a patient with urinary symptoms. pt. was found alert and oriented x3 sitting in living room. pt. noted he had not felt well yesterday and noticed an increase in his urine frequency over the last few days. noted his head felt strange non dizziness but had been at the director loan yesterday and no findings there. pt. noted abdominal cramping for months with lower back pain radiating into his kidneys for months and spasms and shooting pain bilaterally in both lower quadrants. also noted some pressure in his rectum. normal bowel movements. allergy to sulfa and morphine. pt. [facility].pt. vitals assessed on scene. pt. -chest pain -sob -dizziness -nausea -diarrhea -vomiting -weakness -neck pain -headache -blurred vision normal ambulation. pt. assessment airway open and patent breathing non labored circulation +radial pulse -heent abnormalities -jvd -tracheal deviation +and= chest rise and fall abd soft and non tender pelvis in tact +cms in all extremities -dcapbtls -stroke scale findings. [facility] ordered U/A with culture at this time [...] .................... .................... .................... .................... .................... .................... . [facility] Consulted: Abdelrahman Weiss .................... .................... .................... .................... .................... .................... .................... . Disposition: Fulfilled Abdelrahman Weiss MD [address] [place] [address],[address], [place], [address], [employer] PAN[employer] 09/24/2024 14:11:41
== END 2025-05-04 14:45 | disposition home or self-care (01) ==
LOC: HO.PMC 14:16
PROVIDERS: PCP Internal Medicine; Referring Provider Internal Medicine; Visit Provider Anesthesiology
DX: M1A.09X1 Idiopathic chronic gout, multiple sites, with tophus (tophi) (principal); E11.42 Type 2 diabetes mellitus with diabetic polyneuropathy; G89.4 Chronic pain syndrome; Z79.899 Other long term (current) drug therapy
CPT/HCPCS: 99203

== ENCOUNTER → 2025-05-04 14:15 | Outpatient (BNVA) | payer OTHER, SELFPAY | PROVIDERS: PCP Internal Medicine; Referring Provider Internal Medicine; Visit Provider Anesthesiology | DX: M1A.09X1 Idiopathic chronic gout, multiple sites, with tophus (tophi) (principal); G89.4 Chronic pain syndrome; E11.42 Type 2 diabetes mellitus with diabetic polyneuropathy; Z79.899 Other long term (current) drug therapy | CPT/HCPCS: 99202 ==

== ENCOUNTER 2025-06-02 11:11 | Outpatient (REF) | payer OTHER, SELFPAY ==
--- OUTSIDE RECORDS SUMMARY | 2025-05-31 23:59 | XMS_ITS | Continuity of Care Document ---
Author Organization [facility] Address [address] [place] [address]- Care Team Providers Care Cellular Phone Repairer Name Role Phone Anastasia MLAIK, Kvng Torres Primary Care Physician Encounter [facility] Date(s): 05/01/25 - 05/31/[address] [address]- Encounter Type: Triage Allergies, Adverse Reactions, Alerts Substance Criticality Severity Reaction Reaction Severity Status sulfamethoxazole rash Act azael morphine itching Active sulfa drugs Active Caffeine itching Active Other Food Allergy 1 Active Red Dye itch Active 1rosemary Immunizations Given and Recorded Vaccine Date Status Refusal Reason pneumococcal 20-valent conjugate vaccine 04/27/25 Given SARS-CoV-2 mRNA ([id number]-uxnrn) vax 05/05/22 Given tetanus-diphtheria toxoids (Td) 04/19/21 Given SARS-CoV-2 (COVID-19) mRNA BNT-162b2 vac 02/19/21 Recorded SARS-CoV-2 (COVID-19) mRNA BNT-162b2 vac 01/29/21 Recorded hepatitis B adult vaccine 02/24/17 Given hepatitis B adult vaccine 04/01/16 Given hepatitis B adult vaccine 09/04/15 Given influenza virus vaccine, inactivated 09/23/16 Give n influenza virus vaccine, inactivated 09/04/15 Give n influenza virus vaccine, inactivated 10/13/14 Give n influenza virus vaccine, inactivated 08/22/13 Give n influenza virus vaccine, inactivated 1 09/15/11 Gi redd influenza virus vaccine, inactivated 2 07/23/10 Gi redd FluLaval (oldterm) 3 09/27/12 Given tetanus/diphtheria/pertussis, acel(Tdap) 4 07/23/10 Given Influenza Inactive (IM) (oldterm) 5 12/13/09 Given Influenza Inactive (IM) (oldterm) 6 10/16/08 Given influ virus vac, H1N1, inactive(oldterm) 7 11/01/09 Given Pneumococcal Vaccine (oldterm) 8 07/28/07 Given 1Admin Note: VIS 06/10/11 2Admin Note: VIS 06/25/10 3Admin Note: VIS given 05/2012 4Admin Note: VIS 05/27/2006 5Admin Note: Vis 06/26/09 6Admin Note: VIS [id number] 7Admin Note: VIS 08/17/2009 8Result Comment: Lot# [id number] Exp. Feb 18 2009 Medications acetaminophen 325 mg oral tablet 650 mg, By Mouth, Every 6 hours, May take OTC not to exceed 3000 mg/day, Refills 0, Maintenance, 11/11/24 7:49:00 AM EST, Partial fill upon patient request if the prescription is for a schedule II opioid drug. Start Date: 11/11/24 Status: Ordered Repeat number: 1 acetaminophen-oxycodone 325 mg-10 mg oral tablet 1 tablet, By Mouth, Every 4 hours, PRN Pain , Severe, for 28 days, MAXIMUM 5 per day; Dx; [facility].9[facility], 0 Refills, Acute 06/14/25 10:12:00 PM EDT, 05/17/25 10:12:00 PM EDT, Tablet, [facility] #[id number], 1 tablet By Mouth Every 4 hours,x28 days,PRN:Pain , Severe,Instr:MAXIMUM 5 per day; Dx; M10.9; [facility] site reviewed;, 05/17/25, 178, cm, 04/27/25 14:34:00 EDT, Height, 100, kg, 11/10/24 13:36:00 EST, Dry Weight Start Date: 05/17/25 Stop Date: 06/14/25 Status: Ordered Quantity: 140.0 Unit: tablet Repeat number: 1 allopurinol 300 mg oral tablet 1, tablet, By Mouth, Daily, # 90 tablet, Refills 1, Maintenance, 05/17/25 4:21:00 PM EDT, Route to Pharmacy Electronically, [facility] #[id number], 178, cm, 04/27/25 14:34:00 EDT, Height, 100, kg,11/10/24 13:36:00 EST, Dry Weight Start Date: 05/17/25 Status: Ordered Quantity: 90.0 Unit: tablet Repeat number: 1 amLODIPine 5 mg oral tablet 2 tablet, By Mouth, 2 times a day, # 360 tablet, 3 Refills, Maintenance, 03/15/25 5:00:00 PM EDT, [facility] #[id number], 178, cm, 12/29/24 13:31:00 EST, Height, 100, kg, 11/10/24 13:36:00 EST, Dry Weight Start Date: 03/15/25 Stop Date: 03/10/26 Status: Ordered Quantity: 360.0 Unit: tablet Repeat number: 4 carBAMazepine 400 mg oral tablet, extended release 1, tablet, By Mouth, 2 times a day with meals, REPLACES 100 MG CAPSULE, # 180 tablet, Refills 1, Maintenance, 05/16/25 3:26:00 PM EDT, Route to Pharmacy Electronically, [facility] #[id number], 178, cm, 04/27/25 14:34:00 EDT, Height, 100, kg, 11/10/24 13:36:00 EST, Dry Weight Start Date: 05/16/25 Status: Ordered Quantity: 180.0 Unit: tablet Repeat number: 1 colchicine 0.6 mg oral tablet 1, tablet, By Mouth, Daily, # 30 tablet, Refills 1, Tot. Refills 1, Maintenance, 11/03/24 12:50:00 PM EST, Route to Pharmacy Electronically, [facility] #[id number], 179, cm, 10/28/24 11:08:00 EST, Height, 99, kg, 10/24/24 9:19:00 EST, Dry Weight Start Date: 11/03/24 Status: Ordered Quantity: 30.0 Unit: tablet Repeat number: 2 cryo cuff cryo cuff, See Instructions, # 1 each, Refills 0, Tot. Refills 0, Maintenance, Dx' Knee arthritis, 10/19/24 7:54:00 AM EST, Supply Start Date: 10/19/24 Status: Ordered Quantity: 1.0 Unit: each Repeat number: 1 diabetic shoes and iinserts diabetic shoes and iinserts, See Instructions, # 1 each, Refills 1, Tot. Refills 1, Maintenance, with 2 pairs insrets; E11.40; to L&C, 11/15/20 1:50:00 PM EST, Supply Start Date: 11/15/20 Status: Ordered Quantity: 1.0 Unit: each Repeat number: 2 diclofenac sodium 75 mg oral delayed release tablet 1 tablet, By Mouth, 2 times a day, DURING GOUT FLARE. REPLACES INDOCIN, # 60 tablet, 0 Refills, Maintenance, 11/01/24 10:05:00 AM EST, [facility] #[id number], 179, cm, 10/28/24 11:08:00 EST, Height, 99, kg, 10/24/24 9:19:00 EST, Dry Weight Start Date: 11/01/24 Status: Ordered Quantity: 60.0 Unit: tablet Repeat number: 1 docusate sodium 100 mg oral capsule 100 mg, 1, capsule, By Mouth, 2 times a day, # 60 capsule, Refills 0, Tot. Refills 0, Maintenance, 11/11/24 7:47:00 AM EST, Route to Pharmacy Electronically, [facility], Partial fill upon patient request if the prescription is for a schedule II opioid drug., 178, cm, 11/11/24 6:45:[address], Height, 100, kg, 11/10/24 13:36:00 EST, Dry Weight Start Date: 11/11/24 Status: Ordered Quantity: 60.0 Unit: capsule Repeat number: 1 Ecotrin 325 mg oral delayed release tablet 1 tablet = 325 mg, By Mouth, 2 times a day, # 60 tablet, 0 Refills, Maintenance, 11/11/24 7:47:00 AM EST, EC Tablet, [facility], Partial fill upon patient request if the prescription isfor a schedule II opioid drug., 178, cm, 11/11/24 6:45:00 EST, Height, 100, kg, 11/10/24 13:36:00 EST, Dry Weight Start Date: 11/11/24 Stop Date: 12/11/24 Status: Ordered Quantity: 60.0 Unit: tablet Repeat number: 1 Eucerin Eczema Relief topical cream See Instructions, Topically to scaling areas bid, # 120 Gm, 1 Refills, Maintenance, 02/17/23 5:58:00 PM EDT, [facility] #[id number], Partial fill upon patient request if the prescription is for a schedule II opioid drug., Topically to scaling areas bid, 177, cm, 02/05/23 10:52:00 EDT, Height, 107.2, kg, 02/05/23 10:52:00 EDT, Dry Weight Start Date: 02/17/23 Status: Ordered Quantity: 120.0 Unit: g Repeat number: 2 FREESTYLE LITE BLOOD GLUCOSE SYSTEM FREESTYLE LITE BLOOD GLUCOSE SYSTEM, See Instructions, # 1 each, 0 Refills, Maintenance, CHECK BLOOD SUGAR, 03/02/25 8:51:00 PM EDT, 178, cm, 12/29/24 13:31:00 EST, Height, 100, kg, 11/10/24 13:36:00 EST, Dry Weight Start Date: 03/02/25 Status: Ordered Quantity: 1.0 Unit: each Repeat number: 1 FREESTYLE LITE BLOOD GLUCSTR 50S FREESTYLE LITE BLOOD GLUCSTR 50S, See Instructions, # 50 Unknown, 3 Refills, Maintenance, USE DIRECTED TO TEST BLOOD SUGAR THREE TIMES DAILY FOR 2 WEEK, 03/21/25 10:20:00 AM EDT, 178, cm, 12/29/24 13:31:00 EST, Height, 100, kg, 11/10/24 13:36:00 EST, Dry Weight Start Date: 03/21/25 Status: Ordered Quantity: 50.0 Unit: Unknown Repeat number: 1 Freestyle Lite Lancets See Instructions, # 100 each, Refills 0, Tot. Refills 0, Maintenance, to check tid for two weeks for hypoglycemia, 07/12/24 8:38:00 AM EDT, Supply, 178, cm, 04/28/24 14:47:00 EDT, Height, 103.5, kg, 04/02/24 9:10:00 EDT, Dry Weight Start Date: 07/12/24 Status: Ordered Quantity: 100.0 Unit: each Repeat number: 1 Freestyle Lite Monitor See Instructions, # 1 each, Refills 0, Tot. Refills 0, Maintenance, 1 each; E11.9, 07/12/24 8:38:00 AM EDT, Supply, 178, cm, 04/28/24 14:47:00 EDT, Height, 103.5, kg, 04/02/24 9:10:00 EDT, Dry Weight Start Date: 07/12/24 Status: Ordered Quantity: 1.0 Unit: each Repeat number: 1 Freestyle Lite Test Strips See Instructions, # 50 each, Refills 1, Tot. Refills 1, Maintenance, E11.9 to check tid for two weeks for hypoglycemia, 03/20/25 1:17:00 PM EDT, Supply, 178, cm, 12/29/24 13:31:00 EST, Height, 100, kg,11/10/24 13:36:00 EST, Dry Weight Start Date: 03/20/25 Status: Ordered Quantity: 50.0 Unit: each Repeat number: 2 Gauze Pad (4 X 4) See Instructions, # 50 each, Refills 0, Tot. Refills 0, Maintenance, daily dressing cahneg-burn; [employer], 09/23/23 2:05:00 PM EST, Supply Start Date: 09/23/23 Status: Ordered Quantity: 50.0 Unit: each Repeat number: 1 hand held shower head hand held shower head, See Instructions, # 1 each, Refills 0, Tot. Refills 0, Maintenance, as dirceted, 03/04/21 4:54:00 PM EDT, Supply Start Date: 03/04/21 Status: Ordered Quantity: 1.0 Unit: each Repeat number: 1 Home Blood Pressure Monitor See Instructions, # 1 each, Maintenance, HTN, 07/09/22 10:02:00 AM EDT, Supply Start Date: 07/09/22 Status: Ordered Quantity: 1.0 Unit: each Repeat number: 1 lift chair lift chair, See Instructions, # 1 each, Refills 0, Tot. Refills 0, Maintenance, dx; osteoarthritis and difficulty rising, 09/29/24 11:39:00 AM EST, Supply Start Date: 09/29/24 Status: Ordered Quantity: 1.0 Unit: each Repeat number: 1 meloxicam 15 mg oral tablet 1 tablet = 15 mg, By Mouth, Daily, # 30 tablet, 0 Refills, Maintenance, 11/11/24 7:47:00 AM EST, Tablet, [facility], Partial fill upon patient request if the prescription is for a schedule II opioid drug., 178, cm, 11/11/24 6:45:00 EST, Height, 100, kg, 11/10/24 13:36:00 EST, Dry Weight Start Date: 11/11/24 Stop Date: 12/11/24 Status: Ordered Quantity: 30.0 Unit: tablet Repeat number: 1 montelukast 10 mg oral tablet 1, tablet, By Mouth, Daily in PM, FOR ALLERGIES., # 90 tablet, Refills 1, Maintenance, 05/19/25 3:11:00 PM EDT, Route to Pharmacy Electronically, [facility] #[id number], 178, cm, 04/27/25 14:34:00EDT, Height, 100, kg, 11/10/24 13:36:00 EST, Dry Weight Start Date: 05/19/25 Status: Ordered Quantity: 90.0 Unit: tablet Repeat number: 1 Narcan 4 mg/0.1 mL nasal spray = 4 mg, Nares, Both, Once, may repeat every 2 to 3 minutes until patient responds; [id number] after use, # 2 each, 1 Refills, Soft Stop, 06/19/18 11:37:20 AM EDT Start Date: 06/19/18 Status: Ordered Quantity: 2.0 Unit: each Repeat number: 2 nonstick bath mat nonstick bath mat, See Instructions, # 1 each, Refills 0, Tot. Refills 0, Maintenance, as directed,03/04/21 4:55:00 PM EDT, Supply Start Date: 03/04/21 Status: Ordered Quantity: 1.0 Unit: each Repeat number: 1 olmesartan 40 mg oral tablet 1 tablet, By Mouth, Daily, TO. REPLACE LOSARTAN, # 90 tablet, 1 Refills, Maintenance, 02/17/25 9:05:00 AM EDT, [facility] #[id number], 178, cm, 12/29/24 13:31:00 EST, Height, 100, kg, 11/10/24 13:36:00 EST, Dry Weight Start Date: 02/17/25 Status: Ordered Quantity: 90.0 Unit: tablet Repeat number: 2 omeprazole 40 mg oral enteric coated capsule 1 capsule, By Mouth, Daily, # 90 capsule, 1 Refills, Maintenance, 05/16/25 10:14:00 PM EDT, [facility] #[id number], 178, cm, 12/29/24 13:31:00 EST, Height, 100, kg, 11/10/24 13:36:00 EST, Dry Weight Start Date: 05/16/25 Stop Date: 11/12/25 Status: Ordered Quantity: 90.0 Unit: capsule Repeat number: 2 polyethylene glycol 3350 oral powder for reconstitution See Instructions, TAKE DIRECTED BY MOUTH DAILY. MIX IN WATER BEFORE TAKING, # 1,530 Gm, 1 Refills, Maintenance, 05/11/25 9:54:00 AM EDT, [facility] #[id number], TAKE DIRECTED BY MOUTH DAILY. MIX IN WATER BEFORE TAKING, 178, cm, 04/27/25 14:34:00 EDT, Height, 100, kg, 11/10/24 13:36:00 EST, Dry Weight Start Date: 05/11/25 Status: Ordered Quantity: 1530.0 Unit: g Repeat number: 2 pravastatin 20 mg oral tablet 1, tablet, By Mouth, Daily, REPLACES 10 MG, # 90 tablet, Refills 1, Tot. Refills 1, Maintenance, 05/01/25 4:36:00 PM EDT, Route to Pharmacy Electronically, [facility] #[id number], 178, cm, 04/27/25 14:34:00 EDT, Height, 100, kg, 11/10/24 13:36:00 EST, Dry Weight Start Date: 05/01/25 Status: Ordered Quantity: 90.0 Unit: tablet Repeat number: 2 Probiotic + Colostrum 0 Refills, Maintenance, 10/28/24 11:31:00 AM EST, Partial fill upon patient request if the prescription is for a schedule II opioid drug. Start Date: 10/28/24 Status: Ordered Repeat number: 1 Senna 8.6 mg oral tablet 1, tablet, By Mouth, 2 times a day, # 180 tablet, Refills 2, Tot. Refills 2, Maintenance, 02/16/25 10:04:00 PM EDT, Route to Pharmacy Electronically, [facility] #[id number], 178, cm, 12/29/24 13:31:00 EST, Height, 100, kg, 11/10/24 13:36:00 EST, Dry Weight Start Date: 02/16/25 Stop Date: 11/13/25 Status: Ordered Quantity: 180.0 Unit: tablet Repeat number: 3 shower bench shower bench, See Instructions, # 1 each, Refills 0, Tot. Refills 0, Maintenance, FAX to [facility]. Dx: gout and fall risk, 07/08/24 5:47:00 PM EDT, Supply Start Date: 07/08/24 Status: Ordered Quantity: 1.0 Unit: each Repeat number: 1 shower chair with handles shower chair with handles, See Instructions, # 1 each, Refills 0, Tot. Refills 0, Maintenance, M17.9 AND gout, 11/23/24 12:15:00 PM EST, Supply Start Date: 11/23/24 Status: Ordered Quantity: 1.0 Unit: each Repeat number: 1 Ventolin HFA 108 mcg/inh inhalation aerosol with adapter 2 puffs, Inhalation, Every 4 hours, PRN NEEDED FOR WHEEZING, # 54 Gm, 4 Refills, Maintenance, 05/24/25 11:57:00 AM EDT, [facility] #[id number], 178, cm, 04/27/25 14:34:00 EDT, Height, 100, kg, 11/10/24 13:36:00 EST, Dry Weight Start Date: 05/24/25 Status: Ordered Quantity: 54.0 Unit: g Repeat number: 5 Wixela Inhub 250 mcg-50 mcg inhalation powder 1 puffs, Inhalation, 2 times a day, # 60 each, 5 Refills, Maintenance, 12/19/24 11:46:00 AM EST, [facility] #[id number], 30, 1 puffs Inhalation 2 times a day, 178, cm, 11/11/24 6:45:00 EST, Height, 100, kg, 11/10/24 13:36:00 EST, Dry Weight Start Date: 12/19/24 Status: Ordered Quantity: 60.0 Unit: each Repeat number: 6 Problem List Condition Confirmation Course Effective Dates Status H ealth Status Informant Abdominal pain Confirmed Active Asthma Confirmed Active BPH (benign prostatic hyperplasia) Confirmed Active Bipolar 2 disorder Confirmed Active COVID-19 virus infection Confirmed Active COVID-19 virus infection 1 Confirmed 09/03/22 Active Low serum testosterone level Confirmed Active Diabetes mellitus type 2 Confirmed Active Diabetic neuropathy Confirmed Active Polyneuropathy 357.2 Confirmed Active Diverticulitis 2 Confirmed 08/07/14 Active Abdominal pannus Confirmed Active GERD (gastroesophageal reflux disease) Confirmed Active Gout - left bursectomy 06/23; did not tolerate colchicine Confirmed Active High frequency hearing loss Confirmed Active Bariatric surgery status Confirmed Active History of arthroplasty of knee Confirmed Active Hyperlipidemia Confirmed Active Hypertension Confirmed Active Intertrigo Confirmed Active Lower urinary tract symptoms (LUTS) Confirmed Active Microalbuminuria Confirmed Active Morbid obesity with BMI of 50.0-59.9, adult Confirmed Active JERAMY (obstructive sleep apnea) 3 Confirmed Active Controlled substance agreement Signed 04/27/2025 4, 5 Confirmed Active Plantar fasciitis Confirmed Active Psoriasis Confirmed Active Right bundle branch block Confirmed 07/17/12 Active Severe obesity (BMI 35.0-39.9) with comorbidity Confirmed Active 1Also 08/23/23 2admit [facility] 08/01 study - [facility] Review - [place] 5PMP review 11/27/15 - [place] Social History Social History Type Response Smoking Status Never smoker; Tobacc o user in household: No entered on: 04/02/15 Sex Sex Representation Male (finding) Patient Care team information Care Team Personnel Name: Kvng Oconnor MD Position: [facility] Physician - Primary Care Member Role: PCP Address: [address] [place] [address]- Telecom: Name: Birgit Osman RN Position: [facility] Outreach Member Role: Primary Care Nurse Name: Adrienne Espinosa RN Position: [facility] RN Member Role: Primary Care Nurse Name: Kacy Kay RN Position: [facility] SN RN Member Role: Primary Care Nurse Name: Mandy Dickerson RN Position: [facility] Onco RN Member Role: Primary Care Nurse Name: Linh Burch RN Position: [facility] RN Member Role: Primary Care Nurse Name: [place] FINANCIAL SALES ADVISOR, Debra Rich Position: [facility] PCO Associate Professional Member Role: Primary Care Nurse Address: [address] [place] [id number] Telecom: Name: Davon GILL, Norma Position: S RN Member Role: Primary Care Nurse Name: Adrianne Richardson RN Position: S RN Member Role: Primary Care Nurse Care Team Related Persons Name: MOHSEN HATCH Name: LORENA HATCH Name: HUMBERTO AMARO Name: SKYLAR HUNTER Insurance Providers Guarantor name: BRIGIDA DALE [facility] Plan Information #: 1 Payer: [facility] Payer Identifier: NA Member Number: [id number] Group Number: [id number] Subscriber Identifier: [id number] Relationship to Subscriber: self Coverage Type: Medicare Managed Care (Includes Medicare Advantage Plans) Coverage Verification Date: NA Telecom: NA Address:
[2025-06-02 11:24] LABS: MANUAL DIFF FLAG NO
[2025-06-02 11:39] LABS: Hematocrit 37.3 % (42.0-52.0); Hemoglobin 12.8 g/dl (14.0-18.0); Imm Gran Abs Auto 0.02 X10*3/uL (0.00-0.03); Imm Gran Pct Auto 0.3 % (0.0-0.4); Lymphocytes Absolute Auto 1.2 X10*3/uL (1.2-4.9); Mean Corpuscular HGB Conc 34.3 g/dl (31.0-36.0); Mean Corpuscular Hemoglobin 31.4 pg (27.0-33.0); Mean Corpuscular Volume 91.4 fL (80.0-98.0); NRBC Abs Auto 0.000 X10*3/uL (0.0-0.012); NRBC Pct Auto 0.0 /100WBC (0.0-0.2); Platelet Count 186 X10*3/uL (160-400); Red Blood Count 4.08 X10*6/uL (4.60-5.80); White Blood Count 6.1 X10*3/uL (4.8-10.8)
--- OUTSIDE RECORDS SUMMARY | 2025-06-02 11:43 | XMS_ITS | Clinical Summary ---
Author Organization [facility] Address [address] [place] [address] Care Team Providers Care Slp Teacher Name Role Phone Kvng Oconnor MD Primary Care Provider [phone] Allergies Active Allergy Reactions Criticality Noted Date [...] 53 11/07/2023 4:14 PM EST Temperature 36.5 C (97.7 F) 11/07/2023 4:14 PM EST Respiratory Rate 17 11/07/2023 4:14 PM EST [...] 2024 05/05/2022, 02/19/2021, 01/29/2021 Influenza Vaccine (#1) 2025 6, 09/04/2015, 10/13/2014, Additional history exists RSV Adult > 60+ Yrs or (1 - 1-dose 75+ series) 2039 Pneumococcal Vaccine Aged Out 07/28/2007 No long er eligible based on patient's age to complete this topic Hepatitis B Vaccines Completed 02/24/2017, 04/01/2016, 09/04/2015 RSV Ped < 20 months Aged Out No longe r eligible based on patient's age to complete this topic Care Teams Slp Teacher Relationship Specialty Start Date End Date Kvng Oconnor MD [address] [place] [id number] PCP - General Internal Medicine 01/01/24
--- OUTSIDE RECORDS SUMMARY | 2025-06-02 11:43 | XMS_ITS | Encounter Summary ---
Author Organization [facility] Address [address] [place] [address] Care Team Providers Care Bag Machine Operator Name Role Phone Unavailable Primary Care Provider Unavailabl e Encounter Details Date Type Department Care Team (Late st Contact Info) Description 03/06/2022 Dental Interim Note [facility] [address] [facility] [address] [place] [address] Angella Boyer, BLAZE [address] [place] [address] Social History Tobacco Use Types Packs/Day Years [...]
--- OUTSIDE RECORDS SUMMARY | 2025-06-02 11:43 | XMS_ITS | Encounter Summary ---
Author Organization [facility] Address [address] [place] [address] Encounters * CPT with Jn Jauregui at [facility] on 2025-05-27 { reasonForRequest : Patient just doesn't feel well, feels like hes had a hang over for 2 days. , patientReports : , denies :[ Worst Headache of life , New onset of vision loss , Sudden onset -unilateral weakness/gait disturbance , Fall with head strike and altered LOC , New onset of Slurred speech ordifficulty finding words , Sudden Mental status changes , Head pain with feverchills and neck pain , Seizure activity ], chiefComplaints : Weakness& quot;, pmh : COPD/Asthma, Gout, Hypertension , allergies : Morphine, Bactrim, Caffeine , otherAllergies :null, painAssessment : , visitOutcome : , additionalComments : 59 y.o male complains of Weakness\nPatient states \ I feel like I have a major hang over for the last two days and I don't drink\ . Patient reports he \ feels totally ill, like yuck\ . Patient denies any known fever or chills. Patient denies cough or other respiratory symptoms, denies headache, denies vomiting but does endorse some nausea. Patient reports he drank some liquid IV this morning and states that seems to have helped some. Patient reports \ I don't know if high blood pressure could make you feel like this\ , patient states he does have history of high blood pressure. I provided information on the mobile health provider response time and advised the patient and/or caregiver to monitor reported signs and symptoms. I discussed the warning signs of when to seek emergency care -Ankit Bhatia RN } Dispatched to the above address for a 59 y/m with a cc of weakness. Proper ppe was worn throughout the call. Upon arrival: Pt AOx4 in a fowlers position in the living room sofa. Pt greeted [facility] and gave a verbal report. Pt stated that for about 12 years he has been having episodes of weakness/headache/nauseaat least once a week. Pt stated that last October he had knee surgery and ever since gained 50 pounds and has been noticing increase in these weekly episode that last longer now. Pt stated that he noticed as well that he has Polyuria/polydipsia and whenever he eats food with high sugars he starts having symptoms as listed above. Pt noted that he used to have diabetes but about 2 years ago was told that his diabetes was gone due to weight loss. Pt does not take any diabetic medications. Pt alsonoted that lately his BP has been running high, and his pcp is aware and is in the process of medication change. Pt stated that nothing else is bothering him. AOx4 - Airway: Patent - Breathing: equal chest rise and fall - LS: clear - Skin: pink, warm, dry - Pupils: PERRL - CMSx4 - Lower extremity: no edema noted. Head to toe body assessment: (-) DCAPBTLS. Pt denied to headache/sob/vomiting/blood in urine/constipation/diarrhea/difficulty urinating/painfulurination/flu like symptoms/fever. HEENT. skin in tact with no deformity, discoloration, or inflammation. Pupils were equal and reactive to light bilaterally. Eyes tracking normally to six cardinal points of gaze. Nose and mouth were unobstructed. Trachea midline, jugular veins were nondistended in seated position. Face symmetrical with equal movement and sensation. Patient denied changes to vision or hearing and denied double vision. Tongue and uvula midline with palate raises symmetrically. No arm drift present, finger - nose test normal, no neglect noted. [facility]: gave ordered to do BMP/urine dip. Successfully done. [facility] gave red flags and gave pt education on documenting how he feels after eating specific food and checking his sugars/BP more often. Pt stated that he is supposed to see his PCP in about a month and will share with PCP todays findings. MIHclear. All times approximate. ORAL_MEDICATION, WOUND_CARE Written by Jn Jauregui on 2025-05-27
--- OUTSIDE RECORDS SUMMARY | 2025-06-02 11:44 | XMS_ITS | Data Portability ---
Author Organization teextee [facility], [facility] Address [address] [place] [address] Care Team Providers Care Lead Recreation Assistant Name Role Phone HIM CCA OTHER [place] Primary Care Provider [phone] Assessment Encounter Date Assessment Date Assessment LastModified by Organization Details LastModified Time 10/03/2023 10/03/2023 I provided real -time medical direction via phone for this encounter, and was available for additional phone based assistance as needed. I have reviewed and agree with the Assessment and Plan as documented by the Billing Clerk. Patient given the opportunity to ask questions. As per above, 2nd call for patient with nonproductive cough. Also expresses viral URI symptoms. Denies any chest pain or shortness of breath. Per philosophy instructor on the scene appears nontoxic and has [...] Assessment and Plan as documented by the Billing Clerk. Patient given the opportunity to ask questions. Our service contacted for an assessment of: Urinary symptoms As per above, patient with frequency and occasional back pain. No significant dysuria. Seen by this service approximately a month ago and had a urine analysis which was negative as well as culture which showed urogenital minda not consistent with a UTI. Per philosophy instructor on the scene, vital signs are stable [...] assessment and plan as documented by the philosophy instructor. I provided real time medical direction for this encounter and was immediately available to provide additional phone based assistance as needed. History as noted by philosophy instructor. Pt with history of asthma, gout, HTN, [...] abdominal imaging. btils Not available 09/24/2024 13:48:37 05/27/2025 05/27/2025 I provided real -time medical direction via phone for this encounter, and was available for additional phone based assistance as needed. I have reviewed and agree with the Assessment and Plan as documented by the Billing Clerk. We discussed the diagnostic uncertainty of home visits and the risk associated with this. In this case the patient and I felt this to be an acceptable and reasonable amount of risk given the benefit of avoiding an ED visit. The patient given the opportunity to ask questions. Patient with history as listed above- reports remote history of DM, does not take any medications. Continues to check his glucose levels prn. Reports B/P has been elevated- PCP actively titrating medications- recheck by medic was 158/68. Exam wnl. Labs and UA reassuring. Advised to f/u with PCP for further workup if chronic symptoms persist. Advised if develops CP/severe SOB/turning blue/uncontrolled n/v/d or black/bloody emesis or stool/ AMS/ syncope/ hi fever unresponsive to APAP to call 911- verbalized understanding of instruction Not available 05/27/2025 12:20:08 Plan of Treatment Reminders Order Date Submit Date Provider Last Modified By Organization Details Last Modified Time Details Appointments None recorded. Lab BMP, serum or plasma 2024 025 [facility], [address] [place] [address], [id number] 5 12:30:17 urinalysis , dipstick 2024 025 [facility], [address] [place] [address], [id number] 5 12:30:32 glucose, fingerstic k, blood 2024 025 [facility], [address] [place] [address], [id number] 5 12:30:47 urinalysis , dipstick 2023 024 [facility], [address] [place] [address], [id number] 4 13:27:17 culture, urine 2023 024 [facility] (Centralized Electronic Ordering - All Locations), Patient Can Go To The Location Of Their Choice, [id number] 4 10:05:54 culture, urine 2023 024 [facility] (Centralized Electronic Ordering - All Locations), Patient Can Go To The Location Of Their Choice, [address] 4 10:06:25 urinalysis , dipstick [address], [id number] 4 13:53:56 culture, urine 2023 024 [facility] (Centralized [facility] Ordering - All Locations), Patient Can Go To The Location Of Their Choice, [address] 4 12:06:46 urinalysis , dipstick [address], [id number] 4 08:16:47 Referral None recorded. Procedures None recorded. Surgeries None recorded. Imaging None recorded. Medication Orders None recorded. Patient TargetsNo targets recorded. Patient InstructionsNo instructions recorded. Reason for Referral None Reported. Results Created Date Observation Date Name Description Value Unit Range Abnormal Flag Note LastModifiedBy Organization Detail LastModifiedTime 10/01/2010/01/2023 rapid SARS CoV 2 Ag, QL IA, respi rator y speci men rapid SARS CoV 2 Ag, QL IA, respiratory specimen negati ve Not Available [facility] ed [address] [place] [address], [id number] 10/01/2023 14:18:22 06/30/20 24 07/02/2024 URINE CULTU RE,CO MPREH ENSIV E urine culture,comp rehensive Final report Not Available [facility] ([facility]) [address] [place], [address], 07/02/2024 12:06:46 06/30/2007/02/2024 URINE CULTU RE,CO MPREH ENSIV E result 1 COMMEN T Mixed uroge nital minda 25,00 0-50, 000 colon y formi ng units per mL Not Available [facility] ([facility]) [address] [place], [address], 07/02/2024 12:06:46 07/27/20 24 07/29/2024 URINE CULTU RE,CO MPREH ENSIV E urine culture,comp rehensive Final report Not Available [facility] ([facility]) [address] [place], [address], 07/29/2024 10:06:21 07/27/20 24 07/29/2024 URINE CULTU RE,CO MPREH ENSIV E result 1 COMMEN T Mixed uroge nital minda 10,00 0-25, 000 colon y formi ng units per mL Not Available [facility] ([facility]) [address] [place], [address], 07/29/2024 10:06:21 08/27/20 24 08/31/2024 URINE CULTU RE,CO MPREH ENSIV E urine culture,comp rehensive Final report Not Available [facility] ([facility]) [address] [place], [address], 08/31/2024 10:06:25 08/27/20 24 08/31/2024 URINE CULTU RE,CO MPREH ENSIV E result 1 COMMEN T No growt h in 36 - 48 hours . Not Available [facility] ([facility]) [address] [facility], [place], [address], 08/31/2024 10:06:25 09/24/20 24 09/26/2024 URINE CULTU RE, ROUTI NE urine culture, routine Final report Not Available [facility] ([facility]) [address] [facility], [place], [address], 09/26/2024 10:05:54 09/24/20 24 09/26/2024 URINE CULTU RE, ROUTI NE result 1 No growth Not Available [facility] ([facility]) [address] [facility], [place], [address], 09/26/2024 10:05:54 09/24/20 24 09/24/2024 urina lysis , dipst ick Leukocytes negati ve Not Available [facility] ed [address] [place] [address], [id number] 09/24/2024 13:22:30 09/24/20 24 09/24/2024 urina lysis , dipst ick Nitrite negati ve Not Available [facility] - [facility] ed [address] [place] [address], [id number] 09/24/2024 13:22:30 09/24/20 24 09/24/2024 urina lysis , dipst ick Blood negati ve Not Available Main - [facility] ed [address] [place] [address], [id number] 09/24/2024 13:22:30 09/24/20 24 09/24/2024 urina lysis , dipst ick Glucose negati ve Not Available [facility] - [facility] ed [address] [place] [address], [id number] 09/24/2024 13:22:30 Result Notes None recorded. Medical Equipment None Reported. Allergies Allergen ID Allergen Name Allergen Category Reaction Reaction Severity Criticality Documentation Date Start Date Code Code System Note Provider Name and Address Organization Details Recorded Time 80952 caffeine food,medi cation Not available Not available Not available 05/27/2025 1886 RxNorm Not Available [facility] 5 08:50:46 5877 morphine medicatio n Not available Not available Not available 06/30/2024 7052 RxNorm Not Available [facility] 4 03:33:19 5878 Bactrim medicatio n Not available Not available Not available 06/30/2024 46281 9 RxNorm Not Available [facility] 4 03:33:19 Medications Name Sig Start Date [...] 2022 active Not Available Not Available Not Sravanthi labzuri solifenacin 10 mg tablet TAKE 1 TABLET [...] No t Available Vitals Date Recorded Body weight Heart rate Respiratory rate Body height Oxygen saturation Oxygen saturation in Arterial blood by Pulse oximetry Body temperature Systolic And Diastolic Provider Name and Address Organization Details Last Updated DateTime 5 195152. 44 g 88 /min 17 /min 177.8 cm 98 % 98 % 98.4 [degF] 180/60 mm[Hg] Not Available [facility] 5 10:17:27 Date Recorded Body temperature Body weight Respiratory rate Heart rate Oxygen saturation Oxygen saturation in Arterial blood by Pulse oximetry Systolic And Diastolic Provider Name and Address Organization Details Last Updated DateTime 4 98.2 [degF] 09847.7 2 g 16 /min 64 /min 98 % 98 % 162/64 mm[Hg] Not Available [facility] 4 19:44:22 Date Recorded Oxygen saturation Oxygen saturation in Arterial blood by Pulse oximetry Body height Heart rate Body weight Respiratory rate Body temperature Systolic And Diastolic Provider Name and Address Organization Details Last Updated DateTime 4 98 % 98 % 177.8 cm 60 /min 10641.6 48 g 16 /min 98.6 [degF] 128/80 mm[Hg] Not Available [facility] 4 11:00:15 Date Recorded Body temperature Respiratory rate Heart rate Oxygen saturation Oxygen saturation in Arterial blood by Pulse oximetry Systolic And Diastolic Provider Name and Address Organization Details Last Updated DateTime 4 98 [degF] 16 /min 48 /min 98 % 98 % 161/88 mm[Hg] Not Available [facility] 4 13:19:41 Date Recorded Heart rate Respiratory rate Body temperature Oxygen saturation Oxygen saturation in Arterial blood by Pulse oximetry Systolic And Diastolic Provider Name and Address Organization Details Last Updated DateTime 3 60 /min 16 /min 96.2 [degF] 99 % 99 % 193/99 mm[Hg] Not Available [facility] 3 21:56:30 Social History None recorded. Functional Status None recorded. Mental Status None recorded. Family History Nothing Reported. Medical History No medical history recorded. Past Encounters Encounter ID Performer Location Encounter Start Date Encounter Closed Date Diagnosis/Indication Diagnosis SNOMED-CT Code Diagnosis ICD10 Code Diagnosis Note [id number] Avani Casiano MD Main - [facility] [address] [place] [id number] 01/22/2022 11:30:03 07/04/2022 14:47:30 Cellulitis of right lower limb 7791806343 [id number] L03.115 [id number] Abdelrahman Weiss MD Main - [facility] [address] [place] [id number] 08/15/2022 20:10:05 08/19/2022 15:39:03 Essential hypertension 23273221 I10 [id number] New Chu MD Main - [facility] [address] [place] [id number] 10/20/2022 12:59:12 10/22/2022 10:53:26 Influenza A virus present 6904649306 08 J09.X2 This 57-year-ol d male was [...] [id number] Abdelrahman Weiss MD Main - [facility] [address] [place] [address] [id number] 01/19/2023 12:03:46 01/21/2023 09:36:34 Community acquired pneumonia 255407092 J18.9 Cellulitis of left lower limb 5287898070 4699539 L03.116 [id number] Mary Argueta MD Main - [facility] [address] [place] [id number] 10/01/2023 13:29:43 06/01/2025 20:05:47 Upper respiratory infection 35341599 J06.9 [id number] Tiffanie Dawkins MD Main - [facility] [address] [place] [address] [id number] 10/03/2023 21:56:28 10/04/2023 15:52:20 Cough 50327621 R05.9 [id number] RADHA SALDIVAR MD Main - [facility] [address] [place] [phone] 06/30/2024 19:44:20 07/01/2024 13:01:40 Dysuria 86208408 R30.0 Evaluation in the field was performed by my philosophy instructor colleague, as noted above, I provided real-time [...] tenderness . No Matthias discussion with the philosophy instructor, the urinalysis (UA) was unremarkab le, showing no leukocytes , ketones, or blood. The urine was yellow in color; however, no picture was uploaded, as the philosophy instructor discarded it prior to entering it in [...] lower extremity edema or any other concerns. [id number] Tiffanie Dawkins MD Main - [facility] [address] [place] [id number] 08/27/2024 11:00:09 08/27/2024 17:48:46 Urinary symptoms 681269077 R39.9 [id number] [facility] [address] [place] [phone] 09/24/2024 13:19:35 09/24/2024 16:00:17 Increased frequency of urination 232276437 R35.0 [id number] HE LLOYD NP, S Main-[facility] ED Medical [address] [phone] 05/27/2025 10:17:24 05/28/2025 15:26:56 Asthenia 54645480 R53.1 Health Concerns Section Related Observation LastModified by Organization Detai ls LastModified Time None Recorded Concern Status LastModified by Organization Details LastModified Time None Recorded Advance Directives Directive None Recorded Payers Insurance Date Sequence Insurance Name Policy Number Policy Felix Covered Member ID Felix Member ID Guarantor Name 10/01/2023 1 [facility] - DOS PRIOR TO 2023 - DUAL ELIGIBLE (MEDICARE REPLACEMENT/AD VANTAGE - HMO) Oleksandr Mckeon [id number] Oleksandr Mckeon 05/27/2025 1 [facility] - DOS ON OR AFTER 2023 - DUAL ELIGIBLE - RESIDENTIAL OPTIONS AND ONE CARE (MEDICARE REPLACEMENT/AD VANTAGE - HMO) Oleksandr Mckeon [id number] Oleksandr Mckeon Notes Date Note Type Note Provider Name and Address Organization Details Recorded Time 10/03/2023 text/html [facility] Nursing Assessment: Chief Complaints: Cough PMH: Diabetes, COPD/Asthma Allergies: Morphine Comments: Coughing for the past 4 days. Cough not improving. c/o head pressure. Taking Dayquil and Nyquil with no relief. No shortness of breath. Would like to be re-evaluated to consider starting antibiotics. .................... .................... .................... .................... .................... .................... .................... . Billing Clerk Note From Percy Nix: [facility] 3 arrives to find 58-year-old male seated on couch. Patient reports one week of cough and congestion. Patient was visited on Thursday through [facility] and was advised that this was likely a viral sickness. Patient states he was supposed to have been prescribed guaifenesin with codeine by [facility] at that time, but the prescription was [...] Lung sounds clear and equal both sides. [facility] consulted, patient is advised to continue with DayQuil and NyQuil and follow up with primary care when possible. [facility] states guaifenesin and codeine is not prescribable through [facility] and antibiotics are not advised for this particular illness. [facility] 3 clear. Billing Clerk Allergies: Morphine .................... .................... .................... .................... .................... .................... .................... . Disposition: Fulfilled Tiffanie Dawkins MD [address] [facility],[address], [place], [address], [employer] 10/03/2023 21:59:14 06/30/2024 text/html [facility] Nurse Triage Notes (Sim Bhatia): Reason For Request: Patient possible UTI, - Lots of Urine, and stomach pain. Chief Complaints: Edema, UTI/Pyelonephritis PMH: Diabetes, COPD/Asthma Allergies: Morphine, Bactrim Comments: Band Booker verified the member's name//address and phone number. [...] emergency treatment if needed -Ankit Bhatia RN Billing Clerk Organization Information for Chandler Blair [employer] Legal Name: [facility] Address: [address] [place] [address], Hand Rounder: Mikey Reyes MD [facility] No.: [id number] Billing Clerk POC Test Results from Chandler Blair Urine Dipstick (20:53:10) Urine leukocytes: NR Urine nitrites: NR Urine urobilinogen: NR Urine protein: NR Urine pH: 5 pH Urine blood: NR Urine specific gravity: NR Urine ketones: NR Urine bilirubin: NR Urine glucose: NR .................... .................... .................... .................... .................... .................... .................... . Billing Clerk Note From Chandler Blair: Pt co sob [...] bilaterally. Pt sts is feeling better today. [facility] contacted and urine culture to lab mray. pt advised to follow up with pcp. Pt education on signs indicating the ER. [facility] Lab Orders: culture, urine: Performed Comment: lab mary sent Billing Clerk Allergies: Morphine, Bactrim .................... .................... .................... .................... .................... .................... .................... . Disposition: Fulfilled RADHA SALDIVAR MD [address] [place] [address],[address], [place], [address], [employer] 06/30/2024 22:59:08 08/27/2024 text/html [facility] Nurse Triage Notes (Yobany Severino): Reason For Request: Pt reporting suspected UTI, odor with urine, pain in his lower back and belly, slight nausea Chief Complaints: UTI/Pyelonephritis PMH: Diabetes, COPD/Asthma Allergies: Morphine, Bactrim Other Allergies: Karin, [place] and red dye Comments: Band Booker verified the Pt.'s name//address and phone number. [...] - Fatigue - S/S x 2 weeks. Billing Clerk Organization Information for [employer] Legal Name: [employer] Address: [address] [place] [id number], Hand Rounder: Anish Swanson MD CLIA No.: [id number] Billing Clerk POC Test Results from [employer] Urine [...] .................... .................... .................... .................... .................... .................... . Billing Clerk Note From Vargas Phelps: [facility] makes pt contact, 58 YO M CC of UTI like symptoms.[facility] obtains vital signs and a ten panel [...] and karin. With signifcant adverse reactions from bactrim.[facility] contacts [facility] and explains above mentioned. [facility] recommends we wait for the lab order to process to see the results and depending on the culture can treat accordingly. PT advised that if pain gets severe, develops a fever, n/v, or severe SOB to go to the ED.Report written by [place] [facility] Carlos Elias [id number] .................... .................... .................... .................... .................... .................... .................... . Disposition: Fulfilled Tiffanie Dawkins MD [address] [place] [address],[address], [place], [address], [employer] 08/27/2024 11:04:19 09/24/2024 text/html This was a supervised home visit with philosophy instructor David Gibbs. [facility] Nurse Triage Notes (Yobany Severino): Reason For Request: Pt reporting high BP and feeling weak, unsure what is going since around noon time>pt notes seeing his cardiovascular specialist this morning where reading was around 110/84 (*mbr is unsure exactly on bottom number) Chief Complaints: Weakness PMH: COPD/Asthma, Gout Comments: Band Booker verified the Pt.'s name//address and phone number. Education provided on the response time and the Pt. was advised to monitor reported s/s and seek emergency treatment if needed. Pt reports feeling weakness - Blood glucose fluctuations - POC 62 - repeat POC was 117 - Denies CP and SOB - Chills - Pt reports he was seen by his cardiovascular specialist today and b/p was 110/84 = Pt is requesting a wellness check. Billing Clerk Organization Information for David Gibbs [employer] Legal Name: [employer]. Address: [address] [place] [address], Hand Rounder: Anish GUZMAN No.: [id number] Billing Clerk POC Test Results from David Gibbs Urine Dipstick (13:54:05) Urine leukocytes: - KADIE Urine nitrites: - NIT Urine urobilinogen: normal URO Urine protein: 300 PRO Urine pH: 7.0 pH Urine blood: - BLO Urine specific gravity: 1.000 SG Urine ketones: - KET Urine bilirubin: - DANETTE Urine glucose: - GLU .................... .................... .................... .................... .................... .................... .................... . Billing Clerk Note From David Gibbs: Dispatched to a scheduled visit for a patient with urinary symptoms. pt. was found alert and oriented x3 sitting in living room. pt. noted he had not felt well yesterday and noticed an increase in his urine frequency over the last few days. noted his head felt strange non dizziness but had been at the cardiovascular specialist yesterday and no findings there. pt. noted abdominal cramping for months with lower back pain radiating into his kidneys for months and spasms and shooting pain bilaterally in both lower quadrants. also noted some pressure in his rectum. normal bowel movements. allergy to sulfa and morphine. pt. had been seen for similar symptoms by [facility] with all negative results.pt. vitals assessed on scene. pt. -chest pain -sob -dizziness -nausea -diarrhea -vomiting -weakness -neck pain -headache -blurred vision normal ambulation. pt. assessment airway open and patent breathing non labored circulation +radial pulse -heent abnormalities -jvd -tracheal deviation +and= chest rise and fall abd soft and non tender pelvis in tact +cms in all extremities -dcapbtls -stroke scale findings. [facility] ordered U/A with culture at this time [...] .................... .................... .................... .................... .................... .................... . [facility] Consulted: Abdelrahman Weiss .................... .................... .................... .................... .................... .................... .................... . Disposition: Osbaldo Weiss MD [address] [facility],[address], [place], [address], [employer] 09/24/2024 14:11:41 05/27/2025 text/html [facility] Nurse Triage Notes (Sim Bhatia): Reason For Request: Patient just doesn't feel well, feels like hes had a hang over for 2 days. Denies: Worst Headache of life New onset of vision loss Sudden onset -unilateral weakness/gait disturbance Fall with head strike and altered LOC New onset of Slurred speech or difficulty finding words Sudden Mental status changes Head pain with fever chills and neck pain Seizure activity Chief Complaints: Weakness PMH: COPD/Asthma, Gout, Hypertension PMH Reviewed at 05/27/2025:50 Allergies Reviewed at 05/27/2025:50 Comments: 59 y.o male complains of Weakness Patient states I feel like I have a major hang over for the last two days and I don't drink . Patient reports he feels totally ill, like werner . Patient denies any known fever or chills. Patient denies cough or other respiratory symptoms, denies headache, denies vomiting but does endorse some nausea. Patient reports he drank some liquid IV this morning and states that seems to have helped some. Patient reports I don't know if high blood pressure could make you feel like this , patient states he does have history of high blood pressure. I provided information on the mobile health provider response time and advised the patient and/or caregiver to monitor reported signs and symptoms. I discussed the warning signs of when to seek emergency care -Ankit Bhatia RN Billing Clerk Organization Information for [employer] Legal Name: [employer]. Address: [address] [place] [address], Hand Rounder: Anish Swanson MD CLIA No.: [id number] Billing Clerk POC Test Results from [employer] Blood Glucose Measurement (10:14:32) Blood Glucose: 96 mg/dL iSTAT Chem8+ (10:38:33) Na: 137 mEq/L K: 4.5 mEq/L Cl: 99 mEq/L iCa: 1.24 mmol/L TCO2: 26 mmol/L Glu: 91 mg/dL BUN: 23 mg/dL Crea: 0.9 mg/dL Hct: 41 % Hb: 13.9 g/dL A mmol/L Cartridge Number: --- Urine Dipstick (10:38:36) Urine leukocytes: - KADIE Urine nitrites: - NIT Urine urobilinogen: 0.2-3.5 URO Urine protein: 100++ 1.0 PRO Urine pH: 7.5 pH Urine blood: - BLO Urine specific gravity: 1.015 SG Urine ketones: 5+ 0.5 KET Urine bilirubin: 1+ 17 DANETTE Urine glucose: - GLU Attachments uploaded as part of this test result can be found under Documents section. .................... .................... .................... .................... .................... .................... .................... . Billing Clerk Note From Speedy Alfaro: Dispatched to the above address for a 59 y/m with a cc of weakness. Proper ppe was worn throughout the call. Upon arrival: Pt AOx4 in a fowlers position in the living room sofa. Pt greeted [facility] and gave a verbal report. Pt stated that for about 12 years he has been having episodes of weakness/headache/na usea at least once a week. Pt stated that [...] does not take any diabetic medications. Pt also noted that lately his BP has been running [...] body assessment: (-) DCAPBTLS. Pt denied to headache/sob/vomitin g/blood in urine/constipation/d iarrhea/difficulty urinating/painful urination/flu like symptoms/fever. HEENT. skin in tact with [...] - nose test normal, no neglect noted. [facility]: gave ordered to do BMP/urine dip. Successfully done. [facility] gave red flags and gave pt education on documenting how he feels after eating specific food and checking his sugars/BP more often. Pt stated that he is supposed to see his PCP in about a month and will share with PCP todays findings. MIH clear. All times approximate. [facility] Lab Orders: BMP, serum or plasma: Performed urinalysis, dipstick: Performed glucose, fingerstick, blood: Performed .................... .................... .................... .................... .................... .................... .................... . [facility] Consulted: He Lloyd .................... .................... .................... .................... .................... .................... .................... . Disposition: Fulfilled HE LLOYD NP, [address] [facility],[address], [place], [address], KOSTAS REEVES 05/27/2025 12:20:12
--- OUTSIDE RECORDS SUMMARY | 2025-06-02 11:44 | XMS_ITS | Clinical Summary ---
Author Organization [facility] Address [address] [place] [address] Phone Care Team Providers Care Senior Software Architect Name Role Phone Kvng Oconnor MD Primary Care Provider [phone] Allergies Active Allergy Reactions Criticality Noted Date Comments Caffeine Hives 02/10/2019 Morphine Hives,Itching 03/08/2018 Red Dye Itching 02/08/2025 Farzana Nausea And Vomiting 02/08/2025 Sulfa (Sulfonamide Antibiotics) Skin Problems High 0 02/08/2025 Medications ALPRAZOLAM ORAL Take 0.25 mg by mouth. Active polyethylene glycol (PEG) 17 gram/dose oral powder Take by mouth. Activ e turmeric root extract 500 mg tablet Take 500 mg by mouth 2 (two) times a day. Active zinc acetate 50 mg (zinc) capsule Take by mouth. Activ e montelukast sodium (SINGULAIR ORAL) Take by mouth. Activ e allopurinoL (ZYLOPRIM) 100 mg tablet Take 1 tablet (100 mg total) by mouth 4 (four) times a day. Active carBAMazepine (CARBATROL) 300 mg 12 hr capsule Take 300 mg by mouth 2 times daily. Active collagenase (SantyL) 250 unit/gram ointment APPLY TOPICALLY TO THE AFFECTED AREA DAILY 3 Active fluticasone propion-salmete roL (ADVAIR DISKUS) 500-50 mcg/dose diskus inhaler Inhale 1 puff into the lungs. Active naloxone (NARCAN) 4 mg/0.1 mL nasal spray spray or apply 4 mg inside Nose. 8 Active oxyCODONE (ROXICODONE) 10 mg immediate release tablet Take 10 mg by mouth 5 times daily. 2morning, 2 noon, 1 bedtime Active oxyCODONE-aceta minophen (PERCOCET) 10-325 mg per tablet 3 Active pravastatin (PRAVACHOL) 10 mg tablet Take 2 tablets (20 mg total) by mouth at bedtime. Active promethazine (PHENERGAN) 12.5 mg tablet Take 1 Tablet by mouth every 6 hours as needed for Nausea for up to 7 days. 4 Active amLODIPine (NORVASC) 5 mg tablet Take 2 tablets (10 mg total) by mouth 2 (two) times a day. 4 Active olmesartan (BENICAR) 40 mg tablet Take 1 tablet (40 mg total) by mouth 1 (one) time each day. Active omeprazole (PriLOSEC) [address] capsule Take 1 capsule (40 mg total) by mouth 1 (one) time each day. Do not crush or chew. Active senna (SENOKOT) 4.3 mg tablet (HALF TABLET) Take 1 split tablet (1 tablet total) by mouth. 5 11/13/20 25 Active fluticasone-adriano meterol (ADVAIR DISKUS) 250-50 mcg/dose diskus inhaler Inhale 1 puff by mouth 2 (two) times a day. 4 Active Active Problems Problem Noted Date Diagnosed Date Sleep apnea 10/22/2024 Asthma 10/22/2024 Diabetes mellitus ([facility] V24, [facility] V28) 05/2024 Esophageal reflux 10/22/2024 Gout 10/22/2024 Hypertension 10/22/2024 Neuropathy 10/22/2024 Pannus, abdominal 10/25/2019 Class 2 severe obesity due t o excess calories with serious comorbidity and body mass index (BMI) of 37.0 to 37.9 in adult ([facility] V24, [facility] V28) 05/05/2019 Intestinal malabsorption following gastrectomy 0 02/10/2019 Iron deficiency 02/10/2019 Immunizations Name Administration Dates Next Due Justin (ages 12 & older) MARKUS S-CoV-2 COVID-19, mRNA, LNP-S, rigo-sucrose, preservative free 05/05/2022 Pfizer SARS-CoV-2 COVID-19, mRNA, LNP-S, preservative free 02/19/2021,01/29/2021 Surgical History Surgery Date Site/Laterality Comments KNEE SURGERY PROCEDURE: HISTORICAL KNEE SURGERY KNEE ARTHROPLASTY Right BARIATRIC SURGERY CATARACT EXTRACTION PROSTATE SURGERY Medical History Medical History Date Comments Gout DX:Gout Neuropathy DX:Neuropathy Diabetes mellitus ([facility] V24, [facility] V28) DX:Diabetes mellitus ([facility]) Hypertension DX:Hypertension Asthma DX:Asthma Esophageal reflux DX:Esophageal reflux Sleep apnea DX:Sleep apnea Hyperlipidemia Myocardial infarction ([facility] V24, [facility] V28) Neuromuscular disorder ([facility] V24, [facility] V28 ) Family History Medical History Relation Name Comments Parkinson's Disease Father Other: pancreatic disease Mother Relation Name Status Comments Father Mother Social History Tobacco Use Types Packs/Day Years Used Date Smoking Tobacco: Former Smokeless Tobacco: Never Tobacco Cessation:Counseling Given: Not Answered Comments:Quit 2001 Alcohol Use Standard Drinks/Week Comments Not Currently 0 (1 standard drink = 0.6 oz pure alcohol) non-etoh beers nightly 13 yrs no etoh Interpersonal Safety Answer Date Record ed Physical Abuse 03/01/2025 Verbal Abuse 03/01/2025 Sex and Gender Information Value Date Recorded Sex Assigned at Male 02/28/2025 9:46 AM EDT Legal Sex Male 1:20 AM EST Gender Identity Male 02/28/2025 9:46 AM EDT Sexual Orientation Straight 02/28/2025 9: 46 AM EDT Obstetrics History Last Filed Vital Signs Vital Sign Reading Time Taken Comments Blood Pressure 173/79 03/01/2025 8:46 AM EDT Pulse 53 03/01/2025 8:46 AM EDT Temperature 36 C (96.8 F) 03/01/2025 8:50 AM EDT Respiratory Rate 16 03/01/2025 8:46 AM EDT Oxygen Saturation 98% 03/01/2025 8:46 AM EDT Inhaled Oxygen Concentration - - Weight 116 kg (255 lb) 03/01/2025 6:01 AM EDT Height 177.8 cm (5' 10 ) 02/08/2025 3:00 PM EDT Body Mass Index 36.59 02/08/2025 3:00 PM EDT Plan of Treatment Health Maintenance Due Date Last Done Comments Diabetes: Annual Foot Exam 1974 Diabetes: Annual Retina Eye Exam 1974 Pneumococcal Vaccine: 50+ Years (2 of 2 - PCV) 07/28/2008 07/28/2007 Zoster Vaccines (1 of 2) 2014 Cholesterol Screening (Lipid Panel) 12/16/2023 Depression Screening 12/16/2023 Diabetes: Annual Urine Albumin-Creatinine Ratio (uACR) 12/16/2023 Diabetes: Blood Sugar Control Test (HGBA1C) 12/16/2023 HIV Screening 12/16/2023 Hepatitis C Screening 12/16/2023 Medicare Annual Wellness Visit 12/16/2023 Social Influencers of Health Screening 12/16/2023 COVID-19 Vaccine ( season) 2024 05/05/2022, 02/19/2021, 01/29/2021 RSV Immunization Adult Patients (1 - Risk 60-74 years 1-dose series) 2024 Diabetes: Annual GFR (Glomerular Filtration Rate) 11/07/2024 11/07/2023, 11/07/2023, 10/29/2023 Hypertension/CHF/CAD Annual BMP Blood Test 11/07/2024 11/07/2023, 11/07/2023, 10/29/2023 Influenza Vaccine (#1) 2025 6, 09/04/2015, 10/13/2014, Additional history exists Colorectal Cancer Screening: FIT-DNA (Cologuard) 10/07/2026 10/07/2023, [...] patient's age to complete this topic Meningococcal B Vaccine Aged Out No l onger eligible based on patient's age to complete this topic RSV Immunization Patients Under 20 months Aged Out No longer eligible based on patient's age to complete this topic Varicella Vaccines Aged Out No longer eligible based on patient's age to complete this topic Medical Devices Implanted Type Area Custom Grinder Device Identifier Shelf Expiration Date Model / Serial / Lot Joints Knee Joints Knee Right: Knee Implant Kit 1 Cartridge 1 Handle Urolift2 - Sn/A - [id number] Implanted:Qty: 1 on 03/01/2025 by Hank Fernandez MD at [facility] Implants N/A: Prostate TELEFLEX MEDICAL UL2-CHK / N/A / [id number] Implant Cartridge Urolift2 - Sn/A - [id number] Implanted:Qty: 1 on 03/01/2025 by Hank Fernandez MD at [facility] Implants N/A: Prostate TELEFLEX MEDICAL UL2-C / N/A / [id number] Procedures Procedure Name Priority Date/Time Associated Diagnosis Comments ANNUAL BMP BLOOD TEST Routine 11/07/2023 from Last 3 Months or Most Recently Relevant to Health Maintenance Results * Annual BMP Blood Test (11/07/2023) Annual BMP Blood Test abstracted Historical Provider HEALTH MAINTENANCE Final Result from Last 3 Months or Most Recently Relevant to Health Maintenance Insurance [place] [address] MEDICARE Member Subscriber Plan / Payer (Ef fective 2014-Present) Name:Oleksandr Mckeon Relation to Subscriber:Self Name:Oleksandr Mckeon Payer ID:[id number] Group ID:[id number] Type:Not on file Address: [address] [place] [address] Care Teams Senior Software Architect Relationship Specialty Start Date End Date Kvng Oconnor MD [address] [place] PCP - General Internal Medicine 03/04/18
[2025-06-02 12:27] LABS: Alanine Aminotransferase 30 U/L (0-40); Albumin Level 4.3 g/dL (3.5-5.0); Alkaline Phosphatase 100 U/L (39-117); Anion Gap 10 (12-20); Aspartate Amino Transferase 25 U/L (5-37); Blood Urea Nitrogen 29 mg/dL (9-16); Calcium 9.1 mg/dL (8.4-10.2); Carbon Dioxide 26 mmol/L (22-29); Chloride 105 mmol/L (96-108); Estimated Glomerular Filt Rate > 60; Potassium 5.0 mmol/L (3.3-5.1); Sodium 136 mmol/L (135-145); Total Protein 6.4 g/dL (6.5-8.0); Uric Acid 5.0 mg/dL (3.4-7.0)
== END 2025-06-02 11:12 | disposition home or self-care (01) ==
LOC: HO.LAB 11:11
PROVIDERS: PCP Internal Medicine; Visit Provider Student in an Organized Health Care Education/Training Program
DX: M1A.09X1 Idiopathic chronic gout, multiple sites, with tophus (tophi) (principal); M17.0 Bilateral primary osteoarthritis of knee; M06.9 Rheumatoid arthritis, unspecified; Z79.899 Other long term (current) drug therapy
CPT/HCPCS: 36415; 80053; 84550; 85025; 85652; 86140; 99212

== ENCOUNTER 2025-06-02 11:30 | Outpatient (AMB) | payer OTHER, SELFPAY ==
--- NOTE | 2025-06-02 11:35 | A.OFFVIS_ITS ---
Vital Signs 06/02/25 11:40 Height 5 ft 10 in Weight 267 lb 3.204 oz BMI 38.3 BP 132/70 Blood Pressure Location Rt brachial Position Sitting Pulse 57 Pulse Source Pulse Oximeter Pulse Oximetry (%) 98 Oxygen Delivery Method Room Air Intake Visit Reasons: RA Intake Note: Patient presents for RA follow up. Allergies caffeine Allergy (Intermediate, Verified 06/02/25 11:39) Headache morphine Allergy (Intermediate, Verified 06/02/25 11:39) Headache red dye Allergy (Intermediate, Verified 06/02/25 11:39) Rash karin Allergy (Intermediate, Verified 06/02/25 11:39) Rash Sulfa (Sulfonamide Antibiotics) Allergy (Intermediate, Verified 06/02/25 11:39) Rash Medication List - Last Reconciled 06/02/25 by Isabel Matamoros MD acetaminophen 650 mg PO Q6H PRN allopurinol 300 mg PO DAILY allopurinol 500 mg (5 x 100 mg) PO DAILY 90 days alprazolam mg PO amlodipine 5 mg PO BID aspirin (Ecotrin) 325 mg PO BID blood-glucose meter (FreeStyle Lite Meter kit) As directed carbamazepine ER 400 mg PO BID colchicine 0.6 mg PO DAILY PRN diclofenac sodium 75 mg PO BID docusate sodium 100 mg PO DAILY fluticasone propion-salmeterol 250-50 mcg/dose (Wixela Inhub) 1 ea inhalation BID fluticasone propion-salmeterol 250-50 mcg/dose (Wixela Inhub) 1 inh inhalation BID meloxicam 15 mg PO DAILY montelukast 10 mg PO BEDTIME montelukast 10 mg PO QPM naloxone 4 mg/actuation (Narcan) 4 mg intranasal Q2M PRN olmesartan 40 mg PO DAILY olmesartan 40 mg PO DAILY omeprazole 40 mg PO DAILY oxycodone-acetaminophen 10-325 mg tabs PO pravastatin 20 mg PO DAILY sennosides (senna) mg PO sennosides (senna) 8.6 mg PO TID HPI Comments Details: Patient is a 58-year-old gentleman former alcoholic and former cocaine user, with hypertension, 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 08/19/2024. 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 Currently does not drink alcohol (has been sober for 20 years), trying to avoid fructose as well as red meat and shellfish. Current Rheumatology Medication(s): Allopurinol 500mg daily Colchicine 0.6mg prn [facility] Medical History (Updated 05/04/25 @ 14:51 by Salty Sommer MD) Knee osteoarthritis On allopurinol therapy Surgical History History of right knee joint replacement Family History Father Parkinsons Social History Household Members: None Housing: Apartment Alcohol intake: former Patient Tobacco Use Status: Former Tobacco user Cigarette Packs Per Day: 2 Years Smoked: 36 Substance Use Type: Marijuana Review of Systems Const Details: Review of Systems Constitutional: Denies fever, chills, weight loss ENT: Denies vision changes, eye pain or eye redness, dental caries, dry mouth GI: Denies nausea, vomiting, diarrhea, abdominal pain, change in BM Pulm: Denies SOB, ARROYO, hemoptysis, wheezing Cards: Denies chest pain, palpitations Skin: Denies Raynaud's, rash, nail changes, photosensitivity, KINESIOLOGIST: Denies headaches, weakness, paresthesias, recurrent falls MSK: as per HPI All other systems reviewed and are unremarkable except noted above Physical Exam Exam Exam: Vital signs reviewed Physical Examination CONSTITUITIONAL Patient alert and cooperative. Well appearing and in no apparent painful distress HEENT Conjunctiva and sclera clear. No lymphadenopathy. CHEST/RESPIRATORY SYSTEM Normal respiratory effort and able to speak in complete sentences. Clear to auscultation bilaterally. No crackles, rales, rhonchi, wheezes heard. CARDIAC SYSTEM Regular rate and rhythm. S1 and S2 heard no murmurs. Radial pulses intact bilaterally MSK Hands * Right Hand: Able to make a fist. No swelling or tenderness to palpation of these joints. No deformities noted. * Left Hand: Able to make a fist. No swelling or tenderness to palpation of these joints. No deformities noted. Wrists * Right Wrist: Full ROM. 70 degrees of wrist flexion, 80 degrees of wrist extension. No swelling or TTP * Left Wrist: Full ROM. 70 degrees of wrist flexion, 80 degrees of wrist extension. No swelling or TTP Elbows * Right Elbow: Full ROM. No swelling or TTP. No TTP of the medial and lateral epicondyles * Left Elbow: Full ROM. No swelling or TTP. No TTP of the medial and lateral epicondyles Shoulders * Right shoulder: Full ROM. No swelling noted. No TTP of the AC joint, subacromial bursa or posterior shoulder * Left shoulder: Full ROM. No swelling noted. No TTP of the AC joint, subacromial bursa or posterior shoulder Knees * No deformity, swelling, abnormalities noted to bilateral hands. ?No evidence of synovitis. ?Able to move all joints with full range of motion, without limitation. Bilateral crepitus on knees. No effusion. No warmth or tenderness to palpation. Right knee with surgical scar anteriorly. Well healed. Ankles * Right ankle: Good ankle dorsiflexion and plantar flexion. No swelling. No TTP of the ankle joint * Left ankle: Good ankle dorsiflexion and plantar flexion. No swelling. No TTP of the ankle joint Feet * Right foot: Negative squeeze test * Left foot: Negative squeeze test Tender points? * No tenderness to palpation of the bilateral trapezius, supraspinatus, anterior costochondral junctions, bilateral suboccipital muscle insertions SKIN No tophi noted to the ears. No tophi noted to the elbows. Healed surgical scar seen on the left elbow. Prominent PIPs of the 3rd and 4th digits on the right. Vital Signs: Last Vital Signs Pulse 57 06/02/25 11:40 BP 132/70 06/02/25 11:40 Pulse Ox 98 06/02/25 11:40 Oxygen Delivery Method Room Air 06/02/25 11:40 BMI result Body Mass Index 38.3 Results Reviewed Results Reviewed: Laboratory Tests 12/13/24 06/02/25 12:06 11:22 WBC 6.1 RBC 4.08 L Hgb 12.8 L Hct 37.3 L Plt Count 186 ESR 5 4 Sodium 136 136 Potassium 4.3 5.0 Chloride 104 105 Carbon Dioxide 29 26 BUN 25 H 29 Creatinine 0.80 1.00 Uric Acid 4.5 5.0 AST 26 25 ALT 25 30 C-Reactive Protein 0.81 H 0.78H Assessment & Plan Assessment & Plan (1) Gout: Code(s): M10.9 - Gout, unspecified Category: Medical Qualifiers: Chronicity: chronic Gout etiology: idiopathic Gout site: multiple sites Presence of tophus: with tophus Qualified Code(s): M1A.09X1 - Idiopathic chronic gout, multiple sites, with tophus (tophi) Plan: # Chronic crystal proven tophaceous gout Patient is a 59 y.o. male with gout here today for follow up. Goal UA < 5 given his history of tophi Last uric acid at goal Continue allopurinol 500mg daily Plan - Allopurinol 500mg daily - Colchicine 0.6mg prn for flares - Labs today: CBC, CMP, ESR, CRP, UA - RTC 6 months - Labs before visit: CBC, CMP, ESR, CRP, UA (2) Knee osteoarthritis: Comment: Right TKA 10/2024 Code(s): M17.9 - Osteoarthritis of knee, unspecified Category: Medical Qualifiers: Laterality: bilateral Osteoarthritis type: primary Qualified Code(s): M17.0 - Bilateral primary osteoarthritis of knee Plan: #Bilateral Knee OA Stable S/p Right knee replacement (3) On allopurinol therapy: Code(s): Z79.899 - Other prison (current) drug therapy Category: Medical Plan: #Long-term Current Use of Allopurinol Risks and benefits of allopurinol discussed with patient Benefits include decreased gout flares, remission of gout and reduction of tophi Risks include allopurinol hypersensitivity syndrome which is a severe cutaneous adverse reaction associated with allopurinol use particularly in patients who are HLA [id number] positive, increased transaminases, GI upset including diarrhea, nausea and vomiting, and other dermatologic manifestations. Plan I spent 25 minutes reviewing the record and labs, seeing the patient, discussing the treatment plan and documenting in the medical record Orders: Orders Complete Blood Count Auto Diff 6 Months M1A.09X1 - Idiopathic chronic gout, multiple sites, with tophus (tophi) C Reactive Protein 6 Months M1A.09X1 - Idiopathic chronic gout, multiple sites, with tophus (tophi) Erythrocyte Sedimentation Rate 6 Months M1A.09X1 - Idiopathic chronic gout, multiple sites, with tophus (tophi) Comprehensive Met. Panel 6 Months M1A.09X1 - Idiopathic chronic gout, multiple sites, with tophus (tophi) Medications: Refilled colchicine 0.6 mg PO DAILY PRN 30 tabs 0RF gout flare M1A.09X1 - Idiopathic chronic gout, multiple sites, with tophus (tophi) allopurinol 500 mg (5 x 100 mg) PO DAILY 450 tabs 1RF 90 days M1A.09X1 - Idiopathic chronic gout, multiple sites, with tophus (tophi), Z79.899 - Other termite control representative (current) drug therapy Coding Level of Care Code Est Pt Level 3 (22886) Complex EM visit Add On G2211 Diagnoses Idiopathic chronic gout of multiple sites with tophus M1A.09X1 Chronicity: chronic Gout etiology: idiopathic Gout site: multiple sites Presence of tophus: with tophus Primary osteoarthritis of both knees M17.0 Laterality: bilateral Osteoarthritis type: primary On allopurinol therapy Z79.899
[2025-06-02 11:40] VITALS: BP 132/70; PULSE 57; O2SAT 98; BMI 38.3
== END 2025-06-02 12:01 | disposition home or self-care (01) ==
LOC: HO.RHE 11:30
PROVIDERS: PCP Internal Medicine; Visit Provider Student in an Organized Health Care Education/Training Program
DX: M1A.09X1 Idiopathic chronic gout, multiple sites, with tophus (tophi) (principal); M17.0 Bilateral primary osteoarthritis of knee; Z79.899 Other long term (current) drug therapy
CPT/HCPCS: 99213; G2211